=== PATIENT | female | born 1945 | race Caucasian/White ===

== ENCOUNTER 2019-12-20 12:59 | Observation (INO) | payer MEDICARE, MEDICAID ==
[2019-12-20 13:59] LABS: Hemoglobin 12.5 g/dL (12.0-16.0); Mean Corpuscular HGB CONC 31.1 g/dL (32.0-36.0); Mean Corpuscular Hemoglobin 28.2 pg (27.0-31.0); Mean Corpuscular Volume 90.8 fL (78.0-98.0); RBC Distribution Width 13.9 % (11.5-14.5); Red Blood Cell (RBC) Count 4.41 mill/uL (4.20-5.40); White Blood Cell (WBC) Count 10.5 thou/uL (4.8-10.8)
[2019-12-20 14:09] LABS: ALT (SGPT) 11 U/L (8-55); AST (SGOT) 23 U/L (5-34); Albumin 2.9 g/dL (3.4-4.8); Alkaline Phosphatase 372 U/L (40-110); Anion Gap 18 mmol/L (10-20); BUN (Urea Nitrogen) 14 mg/dL (9.8-20.1); CK (CPK) 29 U/L (29-168); Calc. Creatinine Clearance 0 mL/min (70-130); Calcium 9.5 mg/dL (7.8-10.44); Carbon Dioxide 22 mmol/L (23-31); Chloride 100 mmol/L (98-107); Estimated GFR-MDRD 60; Globulin 6.8 g/dL (2.4-3.5); Glucose 110 mg/dL (83-110); Potassium 3.4 mmol/L (3.5-5.1); Protein, Total 9.7 g/dL (6.0-8.3); Sodium 137 mmol/L (136-145)
[2019-12-20 14:22] LABS: #Basophils 0.1 thou/uL (0.0-0.2); #Eosinphils 0.4 thou/uL (0.0-0.7); #Lymphocytes 2.8 thou/uL (1.20-3.40); #Monocytes 0.9 thou/uL (0.11-0.59); #Neutrophils 6.3 thou/uL (1.40-6.50); %Basophils 0.8 % (0.0-1.0); %Eosinophils 3.8 % (0.0-10.0); %Monocytes 8.5 % (0.0-10.0); %Neutrophils 59.9 % (42.0-75.0); Platelet Count 100 thou/uL (130-400)
--- NOTE | 2019-12-20 14:26 | RAD ---
PORTABLE CHEST 1 VIEW: DATE: 12/20/2019. TIME: 1:53 p.m. HISTORY: Nausea, vomiting, body aches. FINDINGS: Comparison is made with the exam of 02/24/2008. The heart size is normal. The aorta is tortuous. The lungs are expanded without lobar consolidation , pneumothoraces, or pleural effusions. IMPRESSION: No radiographic evidence of acute cardiopulmonary process. POS: OFF
[2019-12-20 14:31] LABS: CKMB 1.1 ng/mL (0-6.6)
[2019-12-20] MEDS ORDERED: Aspirin Chewable 81 MG TAB ONE (14:59)
[2019-12-20 15:42] LABS: Bilirubin Negative (Negative); Blood, Urine Trace (Negative); Clarity Turbid (Clear); Glucose, Urine (Dipstick) Normal (Negative); Leukocyte 250 Leu/uL (Negative); Nitrite Negative (Negative); Protein, Urine (Dipstick) 70 mg/dL (Neg-Trace); RBC/HPF 0-3 HPF (0-3); Urobilinogen 3 mg/dL (Less than 2)
[2019-12-20 15:50] LABS: Bacteria/HPF Rare-Few HPF (None Seen)
[2019-12-20] MEDS ORDERED: cefTRIAXone\\ROCEPHIN 2 GM VIAL ONE (16:00)
[2019-12-20 18:11] LABS: Troponin I Less than 0.010 ng/mL (< 0.028)
[2019-12-20] MEDS ORDERED: Ondansetron PF 4 MG/2 ML Vial IVP PRN (18:56)
[2019-12-20] MEDS ORDERED: Ondansetron ODT 4 MG TAB PO PRN (18:56)
[2019-12-20] MEDS ORDERED: hydrALAZINE 20 MG/ML VIAL SLOW IVP PRN (18:56)
[2019-12-20] MEDS ORDERED: cloNIDine 0.1 MG TAB PO PRN (18:56)
[2019-12-20] MEDS ORDERED: Acetaminophen 325 MG TAB PO PRN (18:56)
[2019-12-20 19:03] VITALS: BMI 18.8
[2019-12-20 21:44] LABS: Troponin I 0.014 ng/mL (< 0.028)
--- NOTE | 2019-12-20 22:57 | HP ---
PRIMARY CARE PHYSICIAN: Adair Rodriguez. CHIEF COMPLAINT: Feeling weak and dysuria. HISTORY OF PRESENT ILLNESS: Ms. Lopes is a very pleasant 74-year-old female. She had been told that she has a history of hypertension in the past, who presents to the emergency room after complaining of weakness for the past couple of weeks. She also has been having some burning when she urinates, which is primarily at night. She also has been having episodes of muscle and joint aches. She also says she has been losing weight. She thinks she lost about 5 pounds over the last few months, trouble sleeping. She also notes some nausea off and on, as well as some diffuse abdominal pain in the flanks and also as well as constipation. She denies any hematuria. However, no fevers, no chills, but as a result of her symptoms, she came to the ER for evaluation. In the ER, she was found to have a slightly elevated troponin as well as findings consistent with urinary tract infection and for this reason, she is being admitted. REVIEW OF SYSTEMS: All systems were reviewed and are negative except for that mentioned in the history of present illness. PAST MEDICAL HISTORY: Significant for elevated cholesterol and peripheral vascular disease. PAST SURGICAL HISTORY: She has had a stent placed in her femoral artery, as well as a colonoscopy with the removal of polyps. ALLERGIES: NO KNOWN DRUG ALLERGIES. SOCIAL HISTORY: She currently resides in assisted living facility. She is a former smoker and she smoked for about 60 years and has vaped for about 4 years. FAMILY HISTORY: Significant for lymphoma in her mother and father of a brain hemorrhage. She had a brother, who of small cell carcinoma and a sister who of unknown type of cancer. CURRENT MEDICATIONS: Unknown. PHYSICAL EXAMINATION: GENERAL: She is alert and oriented. She is a very thin, frail-appearing female. VITAL SIGNS: Blood pressure was 154/83, heart rate 90, respiratory rate of 20. She is afebrile. HEENT: Pupils are equal, round, and reactive. Extraocular muscles are intact. Sclerae anicteric. Throat, no erythema, no exudates. Tympanic membranes pearly romero. There is no fluid behind the drum. NECK: She does have some submandibular and cervical adenopathy more pronounced on the right. There are no bruits. LUNGS: Clear to auscultation. There is no wheezing, no rales, no rhonchi. CARDIOVASCULAR: She has a normal S1, S2. There is no S3 or S4. No murmurs, clicks, or rubs. ABDOMEN: Soft. It is obese, nontender, and nondistended. Positive for bowel sounds. No rebound. No guarding. EXTREMITIES: There is no clubbing, no cyanosis, no edema. However, she did have significant adenopathy in the groin bilaterally, which were actually fairly large lymph nodes, which were movable but nonfluctuant. NEUROLOGICAL: Exam is grossly nonfocal. LABORATORY RESULTS: Her white blood cell count is 10.5, hemoglobin 12.5, hematocrit is 40.1, and platelet count was 100. Sodium 137, potassium 3.4, chloride is 100, CO2 is 22, BUN of 14, creatinine 0.92, glucose is 110. Her urinalysis, UA, the clarity was turbid. She has positive leukocyte esterase and rare to few bacteria. She had a chest x-ray that showed hyperexpanded lungs in my opinion, but no acute infiltrates or effusions. EKG was a right bundle-branch block with some nonspecific ST-T wave changes. This is also by my reading. ASSESSMENT: This is a pleasant 74-year-old female, who presents with generalized weakness and dysuria. She has been found to have mild urinary tract infection. She has also been found to have worrisome adenopathy both in the submandibular and on the cervical chain, as well as in the groin and also an elevated troponin. However, she tells me she recently had a negative stress test at [facility]. PLAN: 1. Urinary tract infection. She will be admitted to the hospital. Urine culture will be obtained and she will be placed on IV Rocephin. 2. Elevated troponin. We will request the records from [facility] to get the stress test and continue to trend her cardiac enzymes. 3. Lymphadenopathy. We will consult Surgery to see if these are amenable to biopsy and also get the records from [facility] as the patient says she recently had a CT scan, but she does not know what the results are. It could have shown some intraabdominal or intrathoracic adenopathy, and further recommendations to follow. Job ID: [id number]
--- NOTE | 2019-12-20 23:35 | CON ---
DATE OF CONSULTATION: HISTORY OF PRESENT ILLNESS: The patient is a 74-year-old woman, who presents for evaluation of an abnormal EKG. The patient has previous history of peripheral vascular disease. She previously had stents placed in both lower extremities. The patient has no known cardiac history. She reports having fever, chills and weakness. She presented to the emergency room with dysuria. She was noted to have a normal EKG and admitted for further evaluation. The patient denies having any chest discomfort. PAST MEDICAL HISTORY: 1. Peripheral vascular disease. 2. Dyslipidemia. PAST SURGICAL HISTORY: SOCIAL HISTORY: Former smoker. MEDICATIONS: See nursing list. REVIEW OF SYSTEMS: Noticeable for joint pain and increasing weakness. ALLERGIES: NO KNOWN DRUG ALLERGIES. PHYSICAL EXAMINATION: GENERAL: This is a well-developed woman, in no acute distress with a blood pressure 142/70. NECK: No jugular distention. LUNGS: Clear to auscultation. HEART: Regular rate and rhythm. Normal S1, S2. No murmurs. ABDOMEN: Nondistended. EXTREMITIES: Showed no edema. VASCULAR: Radial pulses are 2+. IMAGING: Her EKG revealed normal sinus rhythm with a right bundle-branch block and a nonspecific T-wave abnormality. IMPRESSION: 1. Abnormal ECG. 2. Urinary tract infection. 3. Hypertension. This patient has a nonspecific EKG findings. She is asymptomatic from a cardiac standpoint. We will check her echocardiogram. We will follow this patient with you through her hospitalization. Job ID: [id number] MTDD
[2019-12-21 04:14] LABS: #Eosinphils 0.3 thou/uL (0.0-0.7); #Lymphocytes 2.4 thou/uL (1.20-3.40); #Monocytes 0.7 thou/uL (0.11-0.59); #Neutrophils 4.8 thou/uL (1.40-6.50); %Basophils 0.1 % (0.0-1.0); %Eosinophils 3.7 % (0.0-10.0); %Lymphocytes 29.3 % (21.0-51.0); Hemoglobin 10.5 g/dL (12.0-16.0); Mean Corpuscular HGB CONC 32.2 g/dL (32.0-36.0); Mean Corpuscular Hemoglobin 28.5 pg (27.0-31.0); Mean Corpuscular Volume 88.8 fL (78.0-98.0); Mean Platelet Volume 8.9 fL (7.4-10.4); Platelet Count 105 thou/uL (130-400); RBC Distribution Width 13.8 % (11.5-14.5); Red Blood Cell (RBC) Count 3.68 mill/uL (4.20-5.40); White Blood Cell (WBC) Count 8.3 thou/uL (4.8-10.8)
[2019-12-21 04:28] LABS: Anion Gap 13 mmol/L (10-20); BUN (Urea Nitrogen) 11 mg/dL (9.8-20.1); Calc. Creatinine Clearance 47 mL/min (70-130); Calcium 8.4 mg/dL (7.8-10.44); Carbon Dioxide 25 mmol/L (23-31); Chloride 102 mmol/L (98-107); Estimated GFR-MDRD 73; Glucose 96 mg/dL (83-110); Potassium 3.3 mmol/L (3.5-5.1); Sodium 137 mmol/L (136-145)
--- NOTE | 2019-12-21 07:21 | PDOC.HOSPP ---
- Subjective Encounter Date: 12/21/19 Encounter Time: 08:34 Subjective: Mrs. Lopes was seen today as a follow-up for weakness and dysuria. She reports that her weakness has improved, noting that she is feeling stronger and has been able to mobilize without a cane. She states that nausea, dizziness, and burning while urination have resolved. Denies fever, chills, chest pain, and SOB. - Objective Vital Signs & Weight: Vital Signs (12 hours) Temp Pulse Resp BP Pulse Ox 12/21/19 04:24 98.9 F 88 14 88/58 L 94 L 12/21/19 00:08 98.4 F 93 16 93/61 94 L Weight Weight 103 lb I&O: 12/20/19 12/21/19 12/22/19 06:59 06:59 06:59 Output Total 100 Balance -100 Result Diagrams: 12/21/19 04:01 12/21/19 04:01 Hospitalist ROS - Review of Systems All other systems reviewed; all pertinent +/- noted in HPI/Subj - Exam General Appearance: awake alert Eye: PERRL, anicteric sclera ENT: normocephalic atraumatic Neck - other findings: cervical lymphadenopathy Heart: RRR, no murmur Respiratory: no tachypnea, rales Gastrointestinal: soft, non-tender, non-distended, normal bowel sounds, no bruit Extremities: no cyanosis, no edema Musculoskeletal: normal tone, normal strength Psychiatric: normal affect, normal behavior, A&O x 3 Hosp A/P (1) Weakness Code(s): R53.1 - WEAKNESS Status: Acute (2) Dysuria Code(s): R30.0 - DYSURIA Status: Acute (3) Lymphadenopathy Code(s): R59.1 - GENERALIZED ENLARGED LYMPH NODES Status: Acute - Plan * Weakness- continue fluids to hydrate the patient. Continue a normal diet as she has increased appetite * Dysuria- continue Rocephin * Lymphadenopathy- await surgery consult for biopsy * Patient seen and examined and agree with Kenya Randolph MS-2 . Patient admits to feeling better. She has been able to walk better, and her appetite has improved. Her exam is unremarkable, and Echo results noted. She had returned from lymph node biopsy. She is stable for discharge home with oral antibiotic for UTI and follow-up with the biopsy with her Primary Care Provider.
[2019-12-21] MEDS ORDERED: Potassium Chloride 20 MEQ TAB PO SCH (08:00)
[2019-12-21] MEDS ORDERED: Aspirin 81 mg Enteric Coated Tablet PO SCH (09:00)
[2019-12-21] MEDS: Sodium Chloride 0.9% 1,000 ML IV SCH ×2 (09:17→16:52)
[2019-12-21] MEDS ORDERED: Lidocaine 1% w/Epinephrine 1:100K 20 ML VIAL ONE (11:46)
[2019-12-21] MEDS ORDERED: Bupivacaine PF 0.5% 30 ML VIAL ONE (11:46)
[2019-12-21] MEDS ORDERED: Fentanyl 100 MCG/2 ML VIAL ONE (11:59)
[2019-12-21] MEDS ORDERED: EPHEDRINE 25 MG/5 ML SYRINGE ONE (13:44)
[2019-12-21] MEDS ORDERED: PHENYLEPHRINE-NS 100 MCG/ML 10 ML SYRINGE ONE (13:44)
[2019-12-21] MEDS ORDERED: Lidocaine 1% PF 5 ML VIAL ONE (13:44)
[2019-12-21] MEDS ORDERED: PROPOFOL 200 MG/20 ML VIAL ONE (13:44)
[2019-12-21 15:06] VITALS: BP 88/59; TEMP 97.8
--- NOTE | 2019-12-21 15:30 | OP ---
DATE OF PROCEDURE: 12/21/2019 PREOPERATIVE DIAGNOSIS: Left inguinal lymphadenopathy. POSTOPERATIVE DIAGNOSIS: Left inguinal lymphadenopathy. PROCEDURE PERFORMED: Excisional biopsy, left inguinal node. ANESTHESIA: General endotracheal. ESTIMATED BLOOD LOSS: Less than 5 mL. COMPLICATIONS: None apparent at the time of operation. INDICATIONS FOR OPERATION: A 74-year-old woman presented with worsening fatigue and malaise. Clinical radiographic examination was consistent with acute left inguinal lymphadenopathy. I was asked to obtain lymph node for biopsy. DESCRIPTION OF PROCEDURE: Informed consent was obtained from the patient, brought to the operating room in supine position. Following general anesthesia, the left groin was sterilely prepped and draped in usual fashion. A 0.25% Marcaine with epinephrine was used to infiltrate the skin overlying the palpable enlarged left inguinal lymph node. An oblique incision was made over the dome of the palpable mass using 15 scalpel. Incision was carried through subcutaneous tissues, maintaining hemostasis using cautery. The fascia was opened. An enlarged lymph node was encountered and grasped with Allis clamps. vessels were individually dissected off and ligated with 3-0 Vicryl. The lymph node was passed off the operative field following transmission to Pathology. Bleeding points were controlled using cautery. Deep tissues were reapproximated using interrupted sutures of 3-0 Vicryl. The skin was closed using a running stitch of 4-0 Monocryl suture in subcuticular fashion. Dermabond was applied over incisional closure. The patient tolerated the procedure without any apparent complications, returned to recovery room in satisfactory condition. Job ID: [id number]
[2019-12-21] MEDS ORDERED: cefTRIAXone\\ROCEPHIN 1 GM in Sodium Chloride 0.9% 100 ML IVPB SCH (16:00)
--- NOTE | 2019-12-22 03:20 | DIS ---
DATE OF ADMISSION: 12/20/2019 DATE OF DISCHARGE: 12/21/2019 DISCHARGE DISPOSITION: Home. DISCHARGE DIAGNOSES: 1. Urinary tract infection. 2. Dehydration. 3. Lymphadenopathy. 4. History of peripheral vascular disease. 5. Tobacco abuse. 6. Elevated cholesterol. DISCHARGE MEDICATIONS: Include: 1. Omnicef 300 mg p.o. twice daily. 2. Aspirin 81 mg daily. PROCEDURES DONE DURING ADMISSION: The patient had an echocardiogram demonstrating an ejection fraction of 60% to 65%. There was some impaired relaxation consistent with diastolic dysfunction. CODE STATUS: Full code. ALLERGIES: NO KNOWN DRUG ALLERGIES. HOSPITAL COURSE: Ms. Lopes is a pleasant 74-year-old female, who was admitted to the hospital after having generalized weakness, dysuria, and poor appetite. She was found to have a mild urinary tract infection. She was also found to be volume depleted. She was admitted and started on IV fluids as well as antibiotics. Urine culture was pending at the time of discharge. She was also noted to have significant inguinal lymphadenopathy. As a result, a surgery consult was obtained and she underwent biopsy. The results of which were pending at the time of discharge, and she was told to follow up with her primary care physician, for the results and also with Dr. White with cardiology. Job ID: [id number]
--- NOTE | 2019-12-28 16:45 | EKG ---
Test Reason : Blood Pressure : / mmHG Vent. Rate : 099 BPM Atrial Rate : 099 BPM P-R Int : 120 ms QRS Dur : 116 ms QT Int : 376 ms P-R-T Axes : 069 078 -44 degrees QTc Int : 482 ms Normal sinus rhythm Possible Left atrial enlargement Right bundle branch block Abnormal ECG T wave inversion II, III, aVF St elevation aVR Confirmed by ZAID ADAMES DO ([id number]), editor greeting card PEPE LAWSON ([id number]) on 12/28/2019 4:44:36 PM Referred By: Confirmed By:ZAID ADAMES DO
--- NOTE | 2019-12-28 16:46 | EKG ---
Test Reason : Blood Pressure : / mmHG Vent. Rate : 088 BPM Atrial Rate : 088 BPM P-R Int : 112 ms QRS Dur : 122 ms QT Int : 418 ms P-R-T Axes : 076 075 -16 degrees QTc Int : 505 ms Sinus rhythm with Premature atrial complexes with Abberant conduction Possible Left atrial enlargement Right bundle branch block T wave abnormality, consider inferior ischemia Abnormal ECG No change from initial EKG Confirmed by ZAID ADAMES DO ([id number]), photography editor PEPE LAWSON ([id number]) on 12/28/2019 4:46:05 PM Referred By: Confirmed By:ZAID ADAMES DO
== END 2019-12-21 18:18 | disposition home or self-care (01) ==
LOC: ERS 12:59 → ERHOLD 17:19 → 2SW 18:58
PROVIDERS: ADMIT Internal Medicine; ATTEND Internal Medicine
PROC: 07DJ3ZX Extraction of Left Inguinal Lymphatic, Percutaneous Approach, Diagnostic (ICD-10-PCS; principal; 2019-12-20)
DX: C84.45 Peripheral T-cell lymphoma, not elsewhere classified, lymph nodes of inguinal region and lower limb (principal); N39.0 Urinary tract infection, site not specified; E86.0 Dehydration; E78.00 Pure hypercholesterolemia, unspecified; I10 Essential (primary) hypertension; Z79.82 Long term (current) use of aspirin; Z87.891 Personal history of nicotine dependence
CPT/HCPCS: 38500; 71045; 80048; 80053; 82550; 82553; 84134; 84439; 84443; 84484 ×2; 85025 ×2; 87086; 88184; 88185; 88307; 88341; 88342; 88360; 88365; 93005; 93306; 96365; 99285; G0378 ×2; 36415; 81003; 81015; 88237; 88264; 88280; J0696; J2001; J2704; J3010; J3490; S0020

== ENCOUNTER 2020-01-01 16:18 | Inpatient (IN) | payer MEDICARE, MEDICAID ==
[2020-01-01 17:18] LABS: Hemoglobin 7.3 g/dL (12.0-16.0); Mean Corpuscular HGB CONC 33.5 g/dL (32.0-36.0); Mean Corpuscular Hemoglobin 29.3 pg (27.0-31.0); Mean Corpuscular Volume 87.4 fL (78.0-98.0); Mean Platelet Volume 9.2 fL (7.4-10.4); Platelet Count 60 thou/uL (130-400); Red Blood Cell (RBC) Count 2.48 mill/uL (4.20-5.40)
--- NOTE | 2020-01-01 17:31 | RAD ---
RADIOGRAPH CHEST 1 VIEW: DATE: 01/01/2020 HISTORY: 74-year-old female with dyspnea FINDINGS: There is hyperinflation of the lungs, consistent with COPD. There is no evidence of airspace density, pulmonary edema, or pneumothorax. The lateral costophrenic angles are not effaced. IMPRESSION: 1) No acute pulmonary findings. 2) emphysema.
[2020-01-01 17:37] LABS: Anisocytosis SLIGHT = 6-15 cells (100X) (0-5/hpf); Band 26 % (5-11); Eosinophils 3 % (0-10); Lymphocytes 11 % (21-51); MDiff Complete? YES; Metamyelocyte 6 % (0-0); Monocytes 3 % (0-10); Myelocyte 1 % (0-0); Neutrophil 49 % (42-75); Nucleated RBC 3 % (0); Platelet Morphology Comment Appears Decreased; Polychromasia SLIGHT = 2-3 cells (100X) (0-2/hpf); Reactive Lymphocytes 1 % (0-10); Vacuoles SLIGHT; White Blood Cell (WBC) Count 11.1 thou/uL (4.8-10.8)
[2020-01-01 17:40] LABS: Anion Gap 14 mmol/L (10-20); BUN (Urea Nitrogen) 19 mg/dL (9.8-20.1); Calc. Creatinine Clearance 0 mL/min (70-130); Carbon Dioxide 25 mmol/L (23-31); Chloride 98 mmol/L (98-107); Estimated GFR-MDRD 63; Potassium 3.7 mmol/L (3.5-5.1); Sodium 133 mmol/L (136-145)
[2020-01-01 17:41] LABS: ALT (SGPT) Less than 7 U/L (8-55); AST (SGOT) 22 U/L (5-34); Albumin 1.9 g/dL (3.4-4.8); Alkaline Phosphatase 266 U/L (40-110); Bilirubin, Total 1.4 mg/dL (0.2-1.2); Calcium 9.3 mg/dL (7.8-10.44); Globulin 6.6 g/dL (2.4-3.5); Glucose 96 mg/dL (83-110); Lipase 40 U/L (8-78); Protein, Total 8.5 g/dL (6.0-8.3)
[2020-01-01 17:53] LABS: Bilirubin Negative (Negative); Blood, Urine Negative (Negative); Clarity Clear (Clear); Glucose, Urine (Dipstick) Normal (Negative); Leukocyte Negative Leu/uL (Negative); Nitrite Negative (Negative); Protein, Urine (Dipstick) 20 mg/dL (Neg-Trace); Urobilinogen 3 mg/dL (Less than 2)
[2020-01-01] MEDS ORDERED: Vancomycin HCl 750 MG in Sodium Chloride 0.9% 250 ML 250 ML IVPB ONE (18:00)
[2020-01-01] MEDS ORDERED: Pantoprazole 40 MG VIAL ONE (19:04)
--- NOTE | 2020-01-01 19:24 | ULT ---
RIGHT UPPER QUADRANT ABDOMINAL ULTRASOUND: History: Right upper quadrant abdominal pain. Comparison: None. Technique: Multiplanar grayscale and color doppler images were obtained in a right upper quadrant abd ominal ultrasound. FINDINGS: The liver is normal in echogenicity without focal lesions or intrahepatic ductal dilatation. The gall bladder is normal without stones, sludge, gallbladder wall thickening, or pericholecystic fluid. The common bile duct is upper limits of normal measuring 6 mm. The visualized portion of the pancreas is unremarkable. The right kidney is normal in echogenicity wi thout hydronephrosis and measures 10.4 cm in length. IMPRESSION: Unremarkable exam. POS: C
[2020-01-01] MEDS ORDERED: Piperacillin/Tazobactam 4.5 GM VIAL ONE (20:40)
[2020-01-01] MEDS ORDERED: Acetaminophen 325 MG TAB ONE (23:00)
[2020-01-01 23:58] VITALS: BMI 20.1
[2020-01-02] MEDS: Sodium Chloride 0.9% 1,000 ML IV SCH ×2 (00:40→08:01)
[2020-01-02] MEDS ORDERED: Calcium Carbonate 500 MG ChewTAB PO PRN (01:35)
[2020-01-02] MEDS ORDERED: Senokot S 8.6-50 MG TAB PO PRN (01:35)
--- NOTE | 2020-01-02 01:47 | HP ---
PRIMARY CARE: [facility]. CHIEF COMPLAINT: Generalized weakness with poor appetite of 1-week duration. HISTORY OF PRESENT ILLNESS: The patient is a 74-year-old female with recent diagnosis of T-cell lymphoma, presented to the emergency room with above complaints. The patient was discharged from this facility approximately 2 weeks ago. She was admitted with generalized weakness and was found to have urinary tract infection. She was noted to have significant inguinal lymphadenopathy, requiring excisional lymph node biopsy. The biopsy came positive for T-cell lymphoma. She was scheduled to see oncologist at [facility] on December,. Over the last 1 week, the patient has not been eating and drinking well. She has been feeling generally weak and fatigued. She has been having low-grade fever as well. She has generalized aches and pains. She denies any nausea, vomiting, abdominal pain, melena, hematochezia, cough, shortness of breath, wheezing, or skin rash. In the emergency room, her initial vital signs showed temperature 99.1, respirations of 17, pulse rate of 107 with a blood pressure 142/68 with O2 saturations of 94% on room air. Sepsis alert was activated in the emergency room. She received vancomycin and Zosyn with IV fluids in the emergency room after cultures. No obvious source of infection was identified. PAST MEDICAL HISTORY: 1. Recent diagnosis of T-cell lymphoma as discussed above. 2. Hyperlipidemia. 3. Peripheral vascular disease. 4. Recent UTI. 5. History of tobacco abuse. PAST SURGICAL HISTORY: 1. Recent exertional lymph node biopsy. 2. Femoral stent placement. 3. Colonoscopy with removal of polyps. ALLERGIES: NO KNOWN DRUG ALLERGIES. CURRENT HOME MEDICATIONS: To be verified with the family when they arrive. The patient is unable to recall all of her medications. REVIEW OF SYSTEMS: All other review of systems was reviewed and were found negative. SOCIAL HISTORY: She has [id number] smoking history. She denies current use of smoking, alcohol, or drug use. She makes her own decision with the help of her family. She is full code. FAMILY HISTORY: Mother with lymphoma. Father of brain hemorrhage. One brother with small cell carcinoma. PHYSICAL EXAMINATION: VITAL SIGNS: As discussed above. GENERAL: A 74-year-old female, ill appearing. Feels generally weak and fatigued. HEENT: Head, atraumatic and normocephalic. Sclerae anicteric. Dry mucous membranes. No oral lesion. NECK: Supple. No JVD. No carotid bruit. LUNGS: Clear to auscultation bilaterally. No wheezing, rales, or rhonchi. HEART: S1 and S2 present. Regular. No rubs or gallops. ABDOMEN: Soft, nontender. Bowel sounds present. EXTREMITIES: No edema or calf tenderness. NEUROLOGIC: Grossly nonfocal. Moves all 4 extremities. PSYCHIATRIC: Alert, awake, and oriented x3. SKIN: Warm and dry. LYMPH NODES: No palpable lymph nodes in the neck. PERIPHERAL VASCULAR: Radial pulses palpable bilaterally. MUSCULOSKELETAL: No joint swelling tenderness. LABORATORY FINDINGS: CBC showed WBC 11.1 with hemoglobin 7.3, hematocrit 21.7, platelets 60. Chemistry showed sodium 133, potassium 3.7, chloride 98, bicarb 25, BUN 19, creatinine 0.87. Total bilirubin 1.4 with alkaline phosphatase of 266. It was 372 two weeks ago. Albumin 1.9 with total protein of 8.5. BNP was 143. Urinalysis was negative for wbc, bacteria. Influenza screen was negative. Stool for occult blood was negative. Right upper quadrant ultrasound was negative for acute findings. The common bile duct was 6 mm. Chest x-ray by my review was negative for infiltrate or edema. IMPRESSION: 1. Generalized weakness, multifactorial. 2. Symptomatic anemia, status post 1 unit of PRBC in the emergency room. 3. Pancytopenia, suspected secondary to T-cell lymphoma. 4. Hyponatremia secondary to dehydration. 5. Abnormal LFTs of unclear etiology. Right upper quadrant was negative. 6. Moderate protein-calorie malnutrition. 7. Questionable sepsis. The patient received 1 dose of vancomycin and Zosyn in the emergency room. Cultures have been sent. PLAN: The patient will be monitored in the Oncology Unit. Oncology Team will be consulted. We will check reticulocyte in a.m. She has 26% bandemia on the CBC. We will continue antibiotics for now, pending cultures. Gentle IV hydration. Consult Physical therapy and Occupational Therapy, and dietitian. Confirm home medications and start accordingly. The patient understands the above plan of care. Job ID: [id number]
[2020-01-02] MEDS: D5 1/2 NS w/20 mEq KCL 1,000 ML IV SCH ×2 (02:25→19:12)
[2020-01-02] MEDS ORDERED: Piperacillin/Tazobactam 4.5 GM in Sodium Chloride 0.9% 100 ML IVPB SCH (03:00)
[2020-01-02 04:27] LABS: Reticulocyte Count 2.3 % (0.5-1.5)
[2020-01-02 04:36] LABS: Band 15 % (5-11); Hypochromia SLIGHT = 6-15 cells (100X) (0-5/hpf); Lymphocytes 16 % (21-51); MDiff Complete? YES; Mean Corpuscular HGB CONC 34.4 g/dL (32.0-36.0); Mean Corpuscular Hemoglobin 30.3 pg (27.0-31.0); Mean Corpuscular Volume 88.2 fL (78.0-98.0); Mean Platelet Volume 9.1 fL (7.4-10.4); Metamyelocyte 4 % (0-0); Monocytes 11 % (0-10); Neutrophil 54 % (42-75); Platelet Count 47 thou/uL (130-400); Platelet Morphology Comment Appears Decreased; RBC Distribution Width 15.2 % (11.5-14.5); Red Blood Cell (RBC) Count 2.63 mill/uL (4.20-5.40); White Blood Cell (WBC) Count 7.6 thou/uL (4.8-10.8)
[2020-01-02 04:44] LABS: Phosphorus 3.9 mg/dL (2.3-4.7)
[2020-01-02 04:53] LABS: Anion Gap 13 mmol/L (10-20); BUN (Urea Nitrogen) 16 mg/dL (9.8-20.1); Calc. Creatinine Clearance 46 mL/min (70-130); Carbon Dioxide 21 mmol/L (23-31); Chloride 105 mmol/L (98-107); Estimated GFR-MDRD 69; Glucose 83 mg/dL (83-110); Magnesium 1.5 mg/dL (1.6-2.6); Potassium 3.2 mmol/L (3.5-5.1); Sodium 136 mmol/L (136-145)
[2020-01-02] MEDS ORDERED: Vancomycin HCl 1 GM in Premix Bag 1 BAG IVPB SCH ×2 (06:00→21:00)
[2020-01-02] MEDS ORDERED: Magnesium 2 GM/50 ML 2 GM in Premix Bag 1 BAG IVPB SCH (06:30)
[2020-01-02] MEDS: Acetaminophen 325 MG TAB PO PRN (08:00)
[2020-01-02] MEDS ORDERED: Iopamidol 370 76% 100 ML VIAL ONE (13:48)
[2020-01-02 13:58] LABS: INR-International Normal Ratio 1.5
[2020-01-02 13:59] LABS: PTT 45.5 SEC (22.9-36.1)
--- NOTE | 2020-01-02 14:00 | PDOC.HOSPP ---
- Subjective Encounter Date: 01/02/20 Encounter Time: 13:58 Subjective: Ms. Lopes was seen today in follow-up of generalized weakness. She does not have any complaints. She has still been very weak. - Objective Vital Signs & Weight: Vital Signs (12 hours) Temp Pulse Resp BP Pulse Ox 01/02/20 12:00 98.4 F 96 18 115/59 L 96 01/02/20 09:00 95 01/02/20 08:05 95 01/02/20 08:00 98.6 F 88 16 139/70 95 01/02/20 04:00 98.3 F 88 16 142/67 H 95 Weight Admit Weight 106 lb 8 oz Weight 106 lb 8 oz I&O: 01/01/20 01/02/20 01/03/20 06:59 06:59 06:59 Intake Total 875 Output Total 200 Balance 675 Result Diagrams: 01/02/20 04:17 01/02/20 04:17 Hospitalist ROS - Medication Medications: Active Medications Generic Name Dose Route Start Last Admin Trade Name Freq PRN Reason Stop Dose Admin Acetaminophen 650 mg 01/01/20 22:51 01/02/20 08:00 Tylenol PO 650 mg Q4H PRN Administration Headache/Fever or Mild Pain Potassium Chloride/Dextrose/Sod Cl 1,000 mls @ 75 mls/hr 01/02/20 01:45 01/02 02:25 D5 1/2 Ns W/20 Meq Kcl IV 1,000 mls .[id number] LU Administration Sodium Chloride 10 ml 01/02/20 09:00 01/02/20 08:01 Flush - Normal Saline IVF Not Given Q12HR LU - Exam General Appearance: NAD Eye: anicteric sclera Heart: RRR, no murmur, no gallops, no rubs, normal peripheral pulses Respiratory: CTAB, no wheezes, no rales, no ronchi, normal chest expansion, no tachypnea, normal percussion Gastrointestinal: soft, non-tender, non-distended, normal bowel sounds, no palpable masses, no hepatomegaly Extremities: no cyanosis, no clubbing, no edema Hosp A/P (1) Lymphoma, T-cell Code(s): C85.90 - NON-HODGKIN LYMPHOMA, UNSPECIFIED, UNSPECIFIED SITE Status: Acute (2) Thrombocytopenia Code(s): D69.6 - THROMBOCYTOPENIA, UNSPECIFIED Status: Acute (3) Anemia Code(s): D64.9 - ANEMIA, UNSPECIFIED Status: Acute - Plan * Generalized weakness and malaise- likely due to the anemia, and newly diagnosed Lymphoma * Discussed with Oncology- will begin staging, and likely treatment soon * Follow-up of blood culture results, and continue antibiotics pending culture results. * Continue PT/OT * Transfuse for anemia as needed
--- NOTE | 2020-01-02 14:42 | CT ---
EXAM: CT of the neck with contrast CT of the chest with contrast CT of the abdomen and pelvis with contrast HISTORY: T-cell lymphoma COMPARISON: 11/16/2013 TECHNIQUE: 1. Multiple contiguous axial images were obtained in a CT the chest with contrast. Coronal and sagitt al reformats were performed. 2. Multiple contiguous axial images were obtained and a CT of the abdomen and pelvis with contrast. C oronal and sagittal reformats were performed. 3. Multiple contiguous axial images were obtained and a CT of the neck with contrast. Coronal and sag ittal reformats were performed. FINDINGS: CT NECK: No mucosal abnormality is seen in the nasopharynx, oropharynx, hypopharynx, or subglottic regions. The parapharyngeal spaces are symmetric. Multiple enlarged bilateral cervical lymph nodes are seen in zones 2 through 4 measuring up to 3.5 cm in size. There are enlarged lymph nodes in zone 1 and zone 5 bilaterally. Mildly enlarged infraclavicular lymph nodes are seen. The salivary glands are symmetric without focal abnormality. The thyroid is unremarkable. No osseous abnormality is seen in the cervical spine. The visualized intracranial structures are unremarkable. CT CHEST: HEART: Normal in size with calcifications in the mitral valve and aortic valve. Calcified coronary ar teries. MEDIASTINUM: No enlarged hilar and mediastinal lymph nodes measuring up to 2.5 cm in size. LUNGS: Emphysematous changes. No focal infiltrates, nodules, or masses. PLEURAL SPACE: No pneumothorax or pleural effusion. CHEST WALL SOFT TISSUES: Enlarged bilateral axillary lymph nodes measuring up to 2.[address] ABDOMEN/PELVIS: ABDOMEN: LIVER: within normal limits. BILE DUCTS: Normal caliber. GALLBLADDER: Contracted with enhancing wall and edema of the gallbladder wall. PANCREAS: within normal limits. SPLEEN: within normal limits. ADRENALS: within normal limits. KIDNEYS: within normal limits. PELVIS: REPRODUCTIVE ORGANS: No pelvic masses. URETERS: within normal limits. BLADDER: within normal limits. PERITONEUM: A small amount of free fluid is seen in the pelvis. No free air or stranding changes seen . BOWEL: Normal caliber. Normal appendix. MESENTERY AND RETROPERITONEUM: Mildly enlarged retroperitoneal lymph nodes measuring up to 2.3 cm in size. Mildly prominent lymph nodes along both pelvic sidewalls. VESSELS: Ectasia of the infrarenal aorta. Stents are seen in the bilateral common iliac arteries. ABDOMINAL WALL: Bilateral enlarged inguinal lymph nodes measuring up to 3.1 cm in size. OSSEOUS STRUCTURES: Degenerative changes in the spine. IMPRESSION: Enlarged lymph nodes throughout the neck, chest, abdomen, pelvis, bilateral axilla, and bilateral ing uinal regions are consistent with the diagnosis of lymphoma.
[2020-01-02] MEDS: Piperacillin/Tazobactam 3.375 GM in Sodium Chloride 0.9% 100 ML IVPB SCH ×2 (15:30→21:43)
--- NOTE | 2020-01-02 15:56 | CON ---
DATE OF CONSULTATION: REASON FOR CONSULTATION: Peripheral T-cell lymphoma. HISTORY OF PRESENT ILLNESS: Ms. Lopes is a pleasant 74-year-old female who over the past month has been having gradual weakness, loss of appetite, weight loss, itching, and pruritus. She presented to the emergency room 2 weeks ago and was diagnosed with a urinary tract infection. She was noted to have lymphedema of her neck and groin. She underwent an excisional biopsy of her left inguinal node. It was positive for peripheral T-cell lymphoma. The patient was discharged to follow up with [facility] in [place] for recommendations. However, she continued to decline over the past week and was brought to the emergency room yesterday for generalized weakness. Her hemoglobin had dropped in the past week from 10.5 to 7.3. She was transfused 1 unit of blood and admitted for further workup and treatment. The patient states over the past month she has had declining appetite, but denies early satiety. She denies night sweats, but has had significant pruritus. Currently denies any pain. PAST MEDICAL HISTORY: 1. Newly diagnosed peripheral T-cell lymphoma. 2. Hyperlipidemia. 3. Peripheral vascular disease. 4. Recent UTI, treated. PAST SURGICAL HISTORY: 1. Left inguinal node excision and biopsy. 2. Femoral stent placement. 3. Polypectomy. ALLERGIES: NO KNOWN DRUG ALLERGIES. HOME MEDICATIONS: 1. Aspirin. 2. Omnicef. FAMILY HISTORY: Her mother had lymphoma. Father from a brain hemorrhage. She had a brother with small-cell lung cancer. SOCIAL HISTORY: . Lives with her daughter. A [id number] of smoking. REVIEW OF SYSTEMS: Ten-point review of systems is negative except for noted in HPI. PHYSICAL EXAMINATION: VITAL SIGNS: Temperature is 98.4, pulse is 96, respiratory rate 18, BP is 115/59, and she is 96% on room air. GENERAL: This is a frail female, in no acute distress. HEENT: Normocephalic and atraumatic. Pupils are equal and reactive to light. NECK: Supple. CV: Regular rate and rhythm. LUNGS: Clear. ABDOMEN: Soft and nontender. There is no palpable organomegaly. EXTREMITIES: No clubbing or cyanosis. SKIN: No rash. LYMPHATICS: She has palpable cervical, supraclavicular, bilateral axillary, and bilateral inguinal lymphadenopathy. NEUROLOGIC: Nonfocal. PSYCHIATRIC: She is alert and oriented and appropriate. PERTINENT LABORATORY DATA AND X-RAYS: Current WBCs are 7.6, hemoglobin 8, hematocrit 23.2, and platelet count is 47,000. She has 54% neutrophils, 15% bands, 16% lymphocytes, 11% monocytes, and reticulocyte is 2.3. Sodium is 136, potassium 3.2, chloride 105, CO2 is 21, BUN is 16, creatinine 0.81, and calcium 8. Phosphorus 3.9. Magnesium 1.5. Bilirubin 1.4, AST is 22, ALT is less than 7, and alkaline phosphatase is 266. Troponin is negative and BNP is 143. Serum total protein is 8.5, albumin 1.9, globulin 6.6, and lipase is 40. TSH is normal. Flow cytometry from 2 weeks ago showed abnormal T-cells. ASSESSMENT: Peripheral T-cell lymphoma. DISCUSSION: The patient's biopsy from her lymph node shows peripheral T-cell lymphoma, CD3 positive. Immunohistochemical stains show that the T-cells have lost CD7 and showed an abnormal expression of CD56, her KI67 is high at 80% to 90%. She is positive for T-cell receptor gamma gene rearrangement. She has not had any further workup, but she was due to see the oncologist in [place] today, but presented here due to significant weakness. The plan will be to image her neck, chest, abdomen, and pelvis. She will need a bone marrow biopsy. She has had an echo on last visitation, which was normal at 60% to 65%. She will need a MediPort for chemotherapy. The case has been discussed in detail with Dr. Alvarez who will follow up with the patient with further recommendations. Thank you for the consult. Job ID: [id number]
[2020-01-02] MEDS: Vancomycin HCl 750 MG in Sodium Chloride 0.9% 250 ML 250 ML IVPB SCH (19:07)
[2020-01-02] MEDS ORDERED: Melatonin 3 MG TAB PO PRN (20:04)
[2020-01-03] MEDS: D5 1/2 NS w/20 mEq KCL 1,000 ML IV SCH ×2 (02:22→17:14)
[2020-01-03] MEDS: Piperacillin/Tazobactam 3.375 GM in Sodium Chloride 0.9% 100 ML IVPB SCH ×4 (03:26→21:20)
[2020-01-03 04:09] LABS: Band 19 % (5-11); Differential Comment Immature Cell(s); Eosinophils 5 % (0-10); Lymphocytes 13 % (21-51); MDiff Complete? YES; Mean Corpuscular HGB CONC 34.1 g/dL (32.0-36.0); Mean Corpuscular Hemoglobin 29.6 pg (27.0-31.0); Mean Corpuscular Volume 86.9 fL (78.0-98.0); Mean Platelet Volume 9.7 fL (7.4-10.4); Metamyelocyte 3 % (0-0); Monocytes 2 % (0-10); Myelocyte 3 % (0-0); Neutrophil 52 % (42-75); Nucleated RBC 1 % (0); Platelet Count 38 thou/uL (130-400); Platelet Morphology Comment Appears Decreased; RBC Distribution Width 15.3 % (11.5-14.5); Red Blood Cell (RBC) Count 2.69 mill/uL (4.20-5.40); Reflex for Review?? NO; White Blood Cell (WBC) Count 8.6 thou/uL (4.8-10.8)
[2020-01-03 04:18] LABS: ALT (SGPT) Less than 7 U/L (8-55); AST (SGOT) 20 U/L (5-34); Albumin 1.7 g/dL (3.4-4.8); Alkaline Phosphatase 230 U/L (40-110); Anion Gap 12 mmol/L (10-20); BUN (Urea Nitrogen) 9 mg/dL (9.8-20.1); Bilirubin, Total 1.2 mg/dL (0.2-1.2); Calc. Creatinine Clearance 43 mL/min (70-130); Calcium 7.5 mg/dL (7.8-10.44); Carbon Dioxide 23 mmol/L (23-31); Chloride 102 mmol/L (98-107); Estimated GFR-MDRD 63; Globulin 6.3 g/dL (2.4-3.5); Glucose 126 mg/dL (83-110); Potassium 3.1 mmol/L (3.5-5.1); Sodium 134 mmol/L (136-145)
--- NOTE | 2020-01-03 09:54 | PDOC.MOPN ---
Interval History: complains of weakness. - Vital Signs Vital Signs: Vital Signs (12 hours) Temp Pulse Resp BP Pulse Ox 01/03/20 08:00 98.7 F 86 18 93/63 95 01/03/20 03:32 98.8 F 89 16 146/71 H 95 01/02/20 23:53 98.9 F 87 16 121/59 L 95 Weight Admit Weight 106 lb 8 oz Weight 106 lb 8 oz - Physical Exam General: Alert, Oriented x3, No acute distress HEENT: Atraumatic, PERRLA, EOMI, Mucous membr. moist/pink Lungs: Clear to auscultation, Normal air movement Cardiovascular: Regular rate, Normal S1, Normal S2, No murmurs, Gallops, Rubs Abdomen: Normal bowel sounds, Soft, No tenderness, No hepatospenomegaly, No masses Extremities: No clubbing, No cyanosis, No edema, Normal pulses, No tenderness/ swelling Neurological: Normal speech - Labs Result Diagrams: 01/03/20 03:36 01/03/20 03:36 Lab results: Laboratory Results - last 24 hr 01/03/20 03:36: Sodium 134 L, Potassium 3.1 L, Chloride 102, Carbon Dioxide 23, Anion Gap 12, BUN 9 L, Creatinine 0.87, Estimated GFR (MDRD) 63, Glucose 126 H, Calcium 7.5 L, Total Bilirubin 1.2, AST 20, ALT Less than 7 L, Alkaline Phosphatase 230 H, Serum Total Protein 8.0, Albumin 1.7 L, Globulin 6.3 H, Albumin/Globulin Ratio 0.3 L 01/03/20 03:36: WBC 8.6, RBC 2.69 L, Hgb 8.0 L, Hct 23.4 L, MCV 86.9, MCH 29.6, MCHC 34.1, RDW 15.3 H, Plt Count 38 L, MPV 9.7, Neutrophils % (Manual) 52, Band Neuts % (Manual) 19 H, Lymphocytes % (Manual) 13 L, Monocytes % (Manual) 2, Eosinophils % (Manual) 5, Basophils % (Manual) 2, Metamyelocytes % (Man) 3 H, Myelocytes % 3 H, Nucleated RBCs # (Man) 1 H, Differential Comment Immature Cell (s), Other Cell Type 1, Plt Morphology Comment Appears Decreased L 01/02/20 13:43: PT 18.0 H, INR 1.5, APTT 45.5 H 01/02/20 13:43: Lactate Dehydrogenase 606 H 01/02/20 13:43: Uric Acid 5.7 Status: lab reviewed by me A/P - Problem (1) Lymphoma, T-cell Current Visit: Yes Code(s): C85.90 - NON-HODGKIN LYMPHOMA, UNSPECIFIED, UNSPECIFIED SITE Status: Acute - Plan Plan: bone marrow biopsy today needs mediport prior to dc poss cycle 1 chemo inpatient. seen by Dr. Alvarez and myself
[2020-01-03] MEDS ORDERED: Potassium Chloride 20 MEQ TAB PO SCH (10:45)
[2020-01-03] MEDS ORDERED: Phytonadione 10 MG/ML AMP PO SCH (10:45)
[2020-01-03] MEDS ORDERED: Sodium Bicarbonate 2.5 MEQ/5 ML VIAL ONE (13:13)
[2020-01-03] MEDS ORDERED: Fentanyl 100 MCG/2 ML VIAL ONE (13:13)
[2020-01-03] MEDS ORDERED: Midazolam HCl 2 mg/2 ml Vial ONE (13:14)
--- NOTE | 2020-01-03 15:04 | CT ---
CT Deep Bone Perc Biopsy History: T-cell lymphoma Comparison: None. Findings: Patient brought to the CT suite. All questions were answered. Informed consent was obtained . Timeout performed. Patient's posterior pelvis was prepped and draped in normal sterile fashion. 5 mL lidocaine was insti lled into the superficial and deep soft tissues. After adequate local anesthesia, a small skin incision was made. Using a 10-gauge needle, using CT guidance, 8 mL of marrow aspirate was obtained. A 2.5 cm core was obtained. Patient tolerated the procedure without complication. Impression: Technically successful CT-guided bone marrow biopsy.
[2020-01-03] MEDS: Vancomycin HCl 750 MG in Sodium Chloride 0.9% 250 ML 250 ML IVPB SCH (17:09)
[2020-01-03] MEDS: Temazepam 15 MG CAP PO PRN (20:22)
--- NOTE | 2020-01-03 20:36 | PDOC.HOSPP ---
- Subjective Encounter Date: 01/03/20 Subjective: Only problem is generalized fatigue. - Objective Vital Signs & Weight: Vital Signs (12 hours) Temp Pulse Resp BP Pulse Ox 01/03/20 20:00 98.9 F 99 16 161/74 H 94 L 01/03/20 16:00 98.7 F 92 18 137/68 95 01/03/20 12:00 98.4 F 84 18 127/65 95 Weight Admit Weight 106 lb 8 oz Weight 106 lb 8 oz I&O: 01/02/20 01/03/20 01/04/20 06:59 06:59 06:59 Intake Total 875 2380 1800 Output Total 200 975 250 Balance 675 1405 1550 Result Diagrams: 01/03/20 03:36 01/03/20 03:36 Hospitalist ROS - Medication Medications: Active Medications Generic Name Dose Route Start Last Admin Trade Name Freq PRN Reason Stop Dose Admin Acetaminophen 650 mg 01/01/20 22:51 01/02/20 08:00 Tylenol PO 650 mg Q4H PRN Administration Headache/Fever or Mild Pain Potassium Chloride/Dextrose/Sod Cl 1,000 mls @ 75 mls/hr 01/02/20 01:45 01/03 17:14 D5 1/2 Ns W/20 Meq Kcl IV 1,000 mls .[id number] LU Administration Piperacillin Sod/Tazobactam 100 mls @ 200 mls/hr 01/02/20 15:00 01/03/20 15: 10 Sod 3.375 gm/ Sodium Chloride IVPB 100 mls 0300,0900,1500,2100 LU Administration Vancomycin HCl 750 mg/ Sodium 250 mls @ 250 mls/hr 01/02/20 18:00 01/03/20 17 :09 Chloride IVPB 250 mls 1800 LU Administration Melatonin 3 mg 01/02/20 20:04 01/02/20 21:46 Melatonin PO 3 mg HS PRN Administration Insomnia Sodium Chloride 10 ml 01/02/20 09:00 01/03/20 09:19 Flush - Normal Saline IVF 10 ml Q12HR LU Administration Temazepam 15 mg 01/03/20 17:25 01/03/20 20:22 Restoril PO 15 mg HSPRN PRN Administration Insomnia - Exam General Appearance: NAD, awake alert Heart: RRR, no murmur, no gallops, no rubs, normal peripheral pulses Respiratory: CTAB, no wheezes, no rales, no ronchi, normal chest expansion, no tachypnea, normal percussion Gastrointestinal: soft, non-tender, non-distended, normal bowel sounds, no palpable masses, no hepatomegaly, no splenomegaly, no bruit Extremities: no cyanosis, no clubbing, no edema Skin: normal turgor, no lesions, no rashes Neurological: no focal deficits Musculoskeletal: normal tone Psychiatric: normal affect, lethargic Hosp A/P (1) Lymphoma, T-cell Code(s): C85.90 - NON-HODGKIN LYMPHOMA, UNSPECIFIED, UNSPECIFIED SITE Status: Acute (2) Pancytopenia Code(s): D61.818 - OTHER PANCYTOPENIA Status: Acute (3) Lymphadenopathy Code(s): R59.1 - GENERALIZED ENLARGED LYMPH NODES Status: Acute (4) Weakness Code(s): R53.1 - WEAKNESS Status: Acute - Plan Has BMBx planned today. Needs mediport. Planned by surg. Has GPR in 1/2 blood cultures. Discussed with surgery, oncology. CT with diffuse ROSETTE. Treatment plan pending BMBx.
[2020-01-04] MEDS: D5 1/2 NS w/20 mEq KCL 1,000 ML IV SCH (01:04)
[2020-01-04] MEDS: Piperacillin/Tazobactam 3.375 GM in Sodium Chloride 0.9% 100 ML IVPB SCH ×2 (02:39→12:36)
[2020-01-04 05:26] LABS: Vancomycin, Trough 15.9 ug/mL
[2020-01-04 05:32] LABS: ALT (SGPT) Less than 7 U/L (8-55); AST (SGOT) 19 U/L (5-34); Albumin 1.6 g/dL (3.4-4.8); Alkaline Phosphatase 235 U/L (40-110); Anion Gap 12 mmol/L (10-20); BUN (Urea Nitrogen) 7 mg/dL (9.8-20.1); Bilirubin, Total 1.3 mg/dL (0.2-1.2); Calc. Creatinine Clearance 46 mL/min (70-130); Calcium 7.5 mg/dL (7.8-10.44); Carbon Dioxide 22 mmol/L (23-31); Chloride 105 mmol/L (98-107); Estimated GFR-MDRD 70; Globulin 6.4 g/dL (2.4-3.5); Glucose 99 mg/dL (83-110); Potassium 3.7 mmol/L (3.5-5.1); Sodium 135 mmol/L (136-145)
[2020-01-04 05:41] LABS: Band 11 % (5-11); Eosinophils 7 % (0-10); Hemoglobin 7.5 g/dL (12.0-16.0); Lymphocytes 28 % (21-51); MDiff Complete? YES; Mean Corpuscular HGB CONC 33.3 g/dL (32.0-36.0); Mean Corpuscular Hemoglobin 29.3 pg (27.0-31.0); Mean Corpuscular Volume 88.1 fL (78.0-98.0); Mean Platelet Volume 10.3 fL (7.4-10.4); Monocytes 5 % (0-10); Myelocyte 1 % (0-0); Neutrophil 47 % (42-75); Nucleated RBC 3 % (0); Platelet Count 36 thou/uL (130-400); Platelet Morphology Comment Appears Decreased; RBC Distribution Width 15.9 % (11.5-14.5); Reactive Lymphocytes 1 % (0-10); Red Blood Cell (RBC) Count 2.54 mill/uL (4.20-5.40); White Blood Cell (WBC) Count 8.1 thou/uL (4.8-10.8)
[2020-01-04] MEDS ORDERED: Lidocaine 1% w/Epinephrine 1:100K 20 ML VIAL ONE (08:43)
[2020-01-04] MEDS ORDERED: Sodium Chloride 0.9% 10 ML ONE (08:43)
[2020-01-04] MEDS ORDERED: Bupivacaine 0.25% HCL 30 ML VIAL ONE (08:43)
[2020-01-04] MEDS ORDERED: Piperacillin/Tazobactam 3.375 GM VIAL ONE (09:09)
[2020-01-04] MEDS ORDERED: Sodium Chloride 0.9% 100 ML ONE (09:10)
[2020-01-04] MEDS ORDERED: SUGAMMADEX SODIUM 200 MG/2 ML VIAL ONE (09:26)
[2020-01-04] MEDS ORDERED: Fentanyl 100 MCG/2 ML VIAL ONE (09:26)
[2020-01-04] MEDS ORDERED: Ketamine 50 MG/ML (10ML VIAL) ONE (09:34)
[2020-01-04] MEDS ORDERED: Propofol 500 MG/50 ML VIAL ONE (09:35)
[2020-01-04] MEDS ORDERED: Ondansetron HCl/PF 4 MG/2 ML Vial IVP PRN (10:22)
[2020-01-04] MEDS ORDERED: PHENYLEPHRINE-NS 100 MCG/ML 10 ML SYRINGE ONE (10:36)
--- NOTE | 2020-01-04 11:42 | RAD ---
XR Chest 1 View History: Port catheter placement Comparison: Chest radiograph January 01, 2020 Findings: Port catheter is in place with tip at the inferior SVC without complication. Atelectatic ch anges both lung bases. Hilar adenopathy. Impression: Uncomplicated placement port catheter.
[2020-01-04] MEDS: Megestrol Acetate 40 MG TAB PO SCH (12:36)
--- NOTE | 2020-01-04 12:50 | OP ---
DATE OF PROCEDURE: 01/04/2020 PREOPERATIVE DIAGNOSES: 1. Acute T-cell lymphoma. 2. Pancytopenia. POSTOPERATIVE DIAGNOSES: 1. Acute T-cell lymphoma. 2. Pancytopenia. PROCEDURE PERFORMED: Placement of left subclavian Port-A-Cath under fluoroscopy. ANESTHESIA: Monitored anesthesia care and local. INDICATIONS FOR PROCEDURE: This 74-year-old woman is recently diagnosed with acute T-cell lymphoma. The patient is anemic and thrombocytopenic. She is brought to the operating room today for placement of Port-A-Cath for therapeutic interventions. DESCRIPTION OF PROCEDURE: Informed consent was obtained from the patient. She was brought to the operating room and placed in supine position. Following monitored anesthesia care, the left chest wall was sterilely prepped and draped in usual fashion. The skin below the left clavicle was anesthetized with 0.25% Marcaine with epinephrine. Left subclavian vein was cannulated with an 18-gauge introducer needle returning dark venous blood. Guidewire was passed through the needle and advanced into the left subclavian vein without resistance. The needle was withdrawn over the guidewire. Proper fitting of guidewire was confirmed by fluoroscopy. A stab incision was then made adjacent to the guidewire using 11-scalpel. A dilator was passed over the guidewire dilating the subcutaneous tissues. Dilator was then introduced with an introducer catheter as a unit over the guidewire, advancing this into the left subclavian vein without resistance. The dilator and guidewire were removed as a unit. 7.8-Mauritian catheter was then advanced through this introducer and placed in the left subclavian vein without resistance. The introducer catheter was peeled away. The catheter was then pulled back to length under fluoroscopy and connected to the port well. I raised subcutaneous pocket after the skin was infiltrated with 0.25% Marcaine with epinephrine. Hemostasis could not be achieved as the patient was oozy. Recent platelet count was in the 30,000. As a result, the patient received one pack of platelets. The port was then embedded in the subcutaneous pocket, secured to the anterior chest wall using 3-0 Prolene suture. Subcutaneous tissues were approximated over the port using interrupted sutures of 3-0 Vicryl. Skin incision was closed using a running stitch of 4-0 Monocryl suture in subcuticular fashion. Dermabond was applied over incisional closure. The patient tolerated the procedure without any apparent complication and was returned to recovery room in satisfactory condition. Total fluoroscopy time was 23 seconds. Job ID: [id number]
--- NOTE | 2020-01-04 14:16 | PDOC.HOSPP ---
- Subjective Encounter Date: 01/04/20 Subjective: Still feels tired, but no other complaint. - Objective Vital Signs & Weight: Vital Signs (12 hours) Temp Pulse Resp BP Pulse Ox 01/04/20 12:00 98.2 F 88 16 132/66 95 01/04/20 08:00 99.1 F 96 18 103/68 95 01/04/20 04:00 98.6 F 94 16 100/61 94 L Weight Admit Weight 106 lb 8 oz Weight 106 lb 8 oz I&O: 01/03/20 01/04/20 01/05/20 06:59 06:59 06:59 Intake Total 2380 1800 960 Output Total 975 250 Balance 1405 1550 960 Result Diagrams: 01/04/20 04:53 01/04/20 04:53 Hospitalist ROS - Medication Medications: Active Medications Generic Name Dose Route Start Last Admin Trade Name Freq PRN Reason Stop Dose Admin Acetaminophen 650 mg 01/01/20 22:51 01/02/20 08:00 Tylenol PO 650 mg Q4H PRN Administration Headache/Fever or Mild Pain Potassium Chloride/Dextrose/Sod Cl 1,000 mls @ 75 mls/hr 01/02/20 01:45 01/04 01:04 D5 1/2 Ns W/20 Meq Kcl IV 1,000 mls .[id number] LU Administration Piperacillin Sod/Tazobactam 100 mls @ 200 mls/hr 01/02/20 15:00 01/04/20 12: 36 Sod 3.375 gm/ Sodium Chloride IVPB Not Given 0300,0900,1500,2100 LU Vancomycin HCl 750 mg/ Sodium 250 mls @ 250 mls/hr 01/02/20 18:00 01/03/20 17 :09 Chloride IVPB 250 mls 1800 LU Administration Megestrol Acetate 40 mg 01/04/20 09:00 01/04/20 12:36 Megace PO 40 mg DAILY LU Administration Melatonin 3 mg 01/02/20 20:04 01/02/20 21:46 Melatonin PO 3 mg HS PRN Administration Insomnia Sodium Chloride 10 ml 01/02/20 09:00 01/04/20 12:37 Flush - Normal Saline IVF 10 ml Q12HR LU Administration Temazepam 15 mg 01/03/20 17:25 01/03/20 20:22 Restoril PO 15 mg HSPRN PRN Administration Insomnia - Exam General Appearance: NAD, awake alert ENT: normocephalic atraumatic, no oropharyngeal lesions, moist mucosa Neck: supple, symmetric, no JVD, no thyromegaly, no lymphadenopathy, no carotid bruit Heart: RRR, no murmur, no gallops, no rubs, normal peripheral pulses Respiratory: CTAB, no wheezes, no rales, no ronchi, normal chest expansion, no tachypnea, normal percussion Gastrointestinal: soft, non-tender, non-distended, normal bowel sounds, no palpable masses, no hepatomegaly, no splenomegaly, no bruit Extremities: no cyanosis, no clubbing, no edema Skin: normal turgor Neurological: no focal deficits Musculoskeletal: normal tone Psychiatric: lethargic Hosp A/P (1) Lymphoma, T-cell Code(s): C85.90 - NON-HODGKIN LYMPHOMA, UNSPECIFIED, UNSPECIFIED SITE Status: Acute (2) Pancytopenia Code(s): D61.818 - OTHER PANCYTOPENIA Status: Acute (3) Lymphadenopathy Code(s): R59.1 - GENERALIZED ENLARGED LYMPH NODES Status: Acute (4) Weakness Code(s): R53.1 - WEAKNESS Status: Acute - Plan Has BMBx pending. mediport placed. Has GPR in 1/[address] blood cultures[address]. [address] with diffuse ROSETTE. Treatment plan pending BMBx. Continue vancomycin today due to surg, but otherwise DC abx.
[2020-01-04] MEDS: Acetaminophen 325 MG TAB PO PRN (17:41)
[2020-01-04] MEDS: Vancomycin HCl 750 MG in Sodium Chloride 0.9% 250 ML 250 ML IVPB SCH (17:47)
[2020-01-04] MEDS: Temazepam 15 MG CAP PO PRN (20:29)
[2020-01-04] MEDS ORDERED: Loperamide HCl 2 MG CAP PO PRN (20:58)
[2020-01-04] MEDS: Saccharomyces boulardii 250 MG CAP PO SCH (23:32)
[2020-01-05] MEDS: D5 1/2 NS w/20 mEq KCL 1,000 ML IV SCH (00:15)
[2020-01-05] MEDS: Saccharomyces boulardii 250 MG CAP PO SCH ×2 (02:55→20:27)
[2020-01-05 05:40] LABS: Hemoglobin 7.4 g/dL (12.0-16.0); Mean Corpuscular HGB CONC 33.2 g/dL (32.0-36.0); Mean Corpuscular Hemoglobin 29.5 pg (27.0-31.0); Mean Corpuscular Volume 88.6 fL (78.0-98.0); Mean Platelet Volume 8.4 fL (7.4-10.4); Platelet Count 75 thou/uL (130-400); RBC Distribution Width 15.8 % (11.5-14.5); Red Blood Cell (RBC) Count 2.52 mill/uL (4.20-5.40); White Blood Cell (WBC) Count 8.8 thou/uL (4.8-10.8)
[2020-01-05 05:59] LABS: ALT (SGPT) 12 U/L (8-55); AST (SGOT) 44 U/L (5-34); Albumin 1.8 g/dL (3.4-4.8); Alkaline Phosphatase 269 U/L (40-110); Anion Gap 11 mmol/L (10-20); BUN (Urea Nitrogen) 6 mg/dL (9.8-20.1); Bilirubin, Total 1.2 mg/dL (0.2-1.2); Calc. Creatinine Clearance 55 mL/min (70-130); Calcium 7.3 mg/dL (7.8-10.44); Carbon Dioxide 23 mmol/L (23-31); Chloride 101 mmol/L (98-107); Estimated GFR-MDRD 84; Globulin 6.5 g/dL (2.4-3.5); Glucose 160 mg/dL (83-110); Potassium 3.9 mmol/L (3.5-5.1); Protein, Total 8.3 g/dL (6.0-8.3); Sodium 131 mmol/L (136-145)
[2020-01-05 06:27] LABS: Band 31 % (5-11); Eosinophils 2 % (0-10); Lymphocytes 21 % (21-51); MDiff Complete? YES; Metamyelocyte 6 % (0-0); Monocytes 4 % (0-10); Myelocyte 2 % (0-0); Neutrophil 34 % (42-75); Platelet Morphology Comment Appears Decreased; Vacuoles SLIGHT
[2020-01-05] MEDS: Ascorbic Acid 500 mg Chewable Tablet PO SCH ×2 (09:13→18:21)
[2020-01-05] MEDS: Megestrol Acetate 40 MG TAB PO SCH (09:14)
[2020-01-05] MEDS: Ferrous Sulfate 325 MG TAB PO SCH ×2 (09:14→18:21)
--- NOTE | 2020-01-05 09:29 | PRG ---
DATE OF SERVICE: 01/05/2020 SUBJECTIVE: The patient is still somnolent. She apparently had some reports of shortness of breath this morning and an EKG was performed which showed some sinus tach with PVCs. Currently, the patient says that she has been feeling a little short of breath for several days, but this is not new or different today. She denies any other symptoms or complaints. OBJECTIVE: VITAL SIGNS: Temperature is 98.9, pulse 102, respirations 18, O2 saturation 100% on 2 L nasal cannula, BP 113/69, up to 159/79. GENERAL APPEARANCE: Age-appropriate female, in no distress. She is somnolent, but awakens easily and converses and then goes back to sleep fairly quickly. HEART: Regular rate and rhythm without murmurs. LUNGS: Generally clear with a hint of a wheeze in the upper airways. No rales or rhonchi noted. ABDOMEN: Soft, nontender, and nondistended. Positive bowel sounds. No masses and no organomegaly. EXTREMITIES: No cyanosis, clubbing, or edema. LABORATORY DATA: White count is 8.8, hemoglobin 7.4, platelets 75, has 34% neutrophils, 31% bands. Sodium 131, potassium 3.9, chloride 101, BUN 6, creatinine 0.68, glucose 160, calcium 7.3, albumin 1.8. IMPRESSION AND PLAN: 1. T-cell lymphoma. Bone marrow biopsy still pending. Discussed the case extensively with Dr. Alvarez who essentially is awaiting to make a decision whether to treat the patient here with her first cycle versus doing it at the clinic. Essentially that will hinge on whether the patient will be functional enough to be able to go home and follow up for the therapy versus needing to go to rehab facility. We will await word from her on that. 2. Dyspnea, appears to be relatively mild and more chronic. We will check an ABG and ensure that she is not retaining some CO2. We will also check an ammonia level. Her chest x-ray yesterday was clear. 3. Metabolic encephalopathy, primarily manifest as lethargy and somnolence, could be related to an underlying lymphoma, but again checking ABG and ammonia level. 4. Anemia, given her shortness of breath and tachycardia, she appears to be symptomatic. Dr. Alvarez has ordered a transfusion. 5. Hyponatremia. The patient has been on D5 half-normal saline. I am going to discontinue that and recheck her levels tomorrow. 6. Status post MediPort placement, tolerated it well, post chest x-ray look good. Job ID: [id number]
[2020-01-05 10:57] LABS: Actual Bicarbonate (HCO3a) 25.9 mEq/L (22-28); Analyzer IN Cardio OR; Base Excess (BEa) 1.7 mEq/L (-2.0 to +3.0); Calcium, Ionized 1.09 mmol/L (1.12-1.30); Carboxyhemoglobin (COHb) 1.4 gm% (0.0-3.0); Hemoglobin (Hb) 8.2 g/dL (12.0-16.0); O2 Tension (PaO2) 63.8 mmHg (> 70.0); Potassium - ABG Lab 3.53 mmol/L (3.70-5.30); pH, Arterial 7.44 (7.35-7.45)
[2020-01-05 10:59] LABS: Puncture Site RRA
--- NOTE | 2020-01-05 12:56 | PDOC.MOPN ---
Interval History: somnolent today - Vital Signs Vital Signs: Vital Signs (12 hours) Temp Pulse Pulse Resp BP BP Pulse Ox 01/05/20 11:29 94 L 01/05/20 10:55 98.7 F 86 22 H 144/81 H 93 L 01/05/20 08:00 98.9 F 102 H 18 159/79 H 100 01/05/20 06:25 98.1 F 103 H 22 H 113/69 100 Weight Admit Weight 106 lb 8 oz Weight 106 lb 8 oz - Physical Exam General: No acute distress HEENT: Atraumatic, PERRLA, EOMI, Mucous membr. moist/pink Lungs: Clear to auscultation, Normal air movement Cardiovascular: Regular rate, Normal S1, Normal S2, No murmurs, Gallops, Rubs Abdomen: Normal bowel sounds, Soft, No tenderness, No hepatospenomegaly, No masses Extremities: No clubbing, No cyanosis, No edema, Normal pulses, No tenderness/ swelling - Labs Result Diagrams: 01/05/20 04:45 01/05/20 04:45 Lab results: Laboratory Results - last 24 hr 01/05/20 10:22: Specimen Type ARTERIAL, Puncture Site RRA, Bicarbonate Actual 25.9, ABG pH 7.44, ABG pCO2 39.0, ABG pO2 63.8, ABG O2 Sat Calc/Darrion 93.3 L, ABG O2 Content 10.7 L, ABG Base Excess 1.7, ABG Hematocrit 24.0 L, ABG Hemoglobin 8.2 L, ABG Oxyhemoglobin 91.7 L, ABG Carboxyhemoglobin 1.4, ABG Methemoglobin 0.30, ABG Deoxyhemoglobin 6.6 H, Stephen Test POSITIVE, A-a O2 Gradient 37.180 H, Ionized Calcium 1.09 L, Mode of Support RA, Inspired O2 21, Sodium 129 L, Potassium 3.53 L, Chloride 99 01/05/20 09:37: Ammonia 38 01/05/20 08:45: Blood Type O POSITIVE, Antibody Screen NEGATIVE, Crossmatch See Detail 01/05/20 04:45: Sodium 131 L, Potassium 3.9, Chloride 101, Carbon Dioxide 23, Anion Gap 11, BUN 6 L, Creatinine 0.68, Estimated GFR (MDRD) 84, Glucose 160 H, Calcium 7.3 L, Total Bilirubin 1.2, AST 44 H, ALT 12, Alkaline Phosphatase 269 H , Serum Total Protein 8.3, Albumin 1.8 L, Globulin 6.5 H, Albumin/Globulin Ratio 0.3 L 01/05/20 04:45: WBC 8.8, RBC 2.52 L, Hgb 7.4 L, Hct 22.4 L, MCV 88.6, MCH 29.5, MCHC 33.2, RDW 15.8 H, Plt Count 75 L, MPV 8.4, Neutrophils % (Manual) 34 L, Band Neuts % (Manual) 31 H, Lymphocytes % (Manual) 21, Monocytes % (Manual) 4, Eosinophils % (Manual) 2, Metamyelocytes % (Man) 6 H, Myelocytes % 2 H, Neutrophils # Not Reportable, Lymphocytes # Not Reportable, WBC Morphology SLIGHT, Plt Morphology Comment Appears Decreased L 01/01/20 18:00: Blood Type O POSITIVE, Antibody Screen NEGATIVE, Crossmatch See Detail Status: lab reviewed by me A/P - Problem (1) Lymphoma, T-cell Current Visit: Yes Code(s): C85.90 - NON-HODGKIN LYMPHOMA, UNSPECIFIED, UNSPECIFIED SITE Status: Acute - Plan Plan: Mediport in place await bone marrow biopsy results consider first dose chemo this weekend.
[2020-01-05 13:33] LABS: Magnesium 1.6 mg/dL (1.6-2.6)
[2020-01-05 13:36] LABS: Phosphorus 1.8 mg/dL (2.3-4.7)
[2020-01-05] MEDS ORDERED: Potassium Phosphate 30 MMOL in Sodium Chloride 0.9% 250 ML 250 ML IVPB SCH (13:45)
[2020-01-05] MEDS ORDERED: Potassium Phosphate 30 MMOL, Magnesium Sulfate 3 GM in Sodium Chloride 0.9% 250 ML 250 ML IVPB SCH (13:45)
[2020-01-05] MEDS ORDERED: Magnesium Sulfate 3 GM in Sodium Chloride 0.9% 100 ML IVPB SCH (13:45)
--- NOTE | 2020-01-05 16:44 | EKG ---
Test Reason : Blood Pressure : / mmHG Vent. Rate : 115 BPM Atrial Rate : 115 BPM P-R Int : 126 ms QRS Dur : 116 ms QT Int : 340 ms P-R-T Axes : 072 081 -09 degrees QTc Int : 470 ms Sinus tachycardia with Premature supraventricular complexes Right bundle branch block T wave abnormality, consider inferior ischemia Abnormal ECG When compared with ECG of 01-JAN-2020 16:28, (Unconfirmed) No significant change was found Confirmed by DR. Foreign BASILIO ([id number]) on 01/05/2020 4:43:45 PM Referred By: CALI Confirmed By:DR. Foreign BASILIO
[2020-01-05] MEDS: Vancomycin HCl 750 MG in Sodium Chloride 0.9% 250 ML 250 ML IVPB SCH (18:21)
[2020-01-05] MEDS: Temazepam 15 MG CAP PO PRN (20:27)
[2020-01-06 04:27] LABS: Phosphorus 2.7 mg/dL (2.3-4.7)
[2020-01-06 04:28] LABS: ALT (SGPT) 15 U/L (8-55); AST (SGOT) 31 U/L (5-34); Albumin 1.8 g/dL (3.4-4.8); Alkaline Phosphatase 278 U/L (40-110); Anion Gap 12 mmol/L (10-20); BUN (Urea Nitrogen) 5 mg/dL (9.8-20.1); Bilirubin, Total 1.2 mg/dL (0.2-1.2); Calc. Creatinine Clearance 55 mL/min (70-130); Calcium 7.5 mg/dL (7.8-10.44); Carbon Dioxide 25 mmol/L (23-31); Chloride 98 mmol/L (98-107); Estimated GFR-MDRD 84; Globulin 7.1 g/dL (2.4-3.5); Glucose 75 mg/dL (83-110); Magnesium 2.3 mg/dL (1.6-2.6); Protein, Total 8.9 g/dL (6.0-8.3); Sodium 131 mmol/L (136-145)
[2020-01-06 05:05] LABS: Band 17 % (5-11); Eosinophils 3 % (0-10); Hemoglobin 9.5 g/dL (12.0-16.0); Lymphocytes 19 % (21-51); MDiff Complete? YES; Mean Corpuscular HGB CONC 34.1 g/dL (32.0-36.0); Mean Corpuscular Hemoglobin 29.4 pg (27.0-31.0); Mean Corpuscular Volume 86.2 fL (78.0-98.0); Mean Platelet Volume 9.4 fL (7.4-10.4); Metamyelocyte 2 % (0-0); Monocytes 11 % (0-10); Neutrophil 47 % (42-75); Nucleated RBC 1 % (0); Platelet Count 61 thou/uL (130-400); Platelet Morphology Comment Appears Decreased; RBC Distribution Width 15.6 % (11.5-14.5); RBC Morphology Normal; Red Blood Cell (RBC) Count 3.22 mill/uL (4.20-5.40); White Blood Cell (WBC) Count 8.3 thou/uL (4.8-10.8)
[2020-01-06] MEDS: Ascorbic Acid 500 mg Chewable Tablet PO SCH ×2 (08:40→17:27)
[2020-01-06] MEDS: Ferrous Sulfate 325 MG TAB PO SCH ×2 (08:40→17:27)
[2020-01-06] MEDS: Megestrol Acetate 40 MG TAB PO SCH (08:40)
[2020-01-06] MEDS ORDERED: Sodium Phosphate 30 MMOL in Sodium Chloride 0.9% 250 ML 250 ML IVPB SCH (11:15)
--- NOTE | 2020-01-06 11:40 | PDOC.MOPN ---
Interval History: she is a little stronger now, sat in chair for 30 minutes but is worn out by this. no nausea. no headaches. but she is still quite somnolent and sleepy - Vital Signs Vital Signs: Vital Signs (12 hours) Temp Pulse Resp BP BP Pulse Ox 01/06/20 08:09 98.2 F 110 H 20 153/79 H 93 L 01/06/20 04:00 98.9 F 75 16 151/76 H 94 L 01/06/20 03:15 113 H 16 150/68 H 89 L 01/05/20 23:43 98.3 F 103 H 16 93 L Weight Admit Weight 106 lb 8 oz Weight 106 lb 8 oz - Physical Exam General: Other (sleepy but arousable) HEENT: Atraumatic Lungs: Clear to auscultation Cardiovascular: Regular rate Abdomen: Normal bowel sounds, Soft Extremities: No clubbing, Other (diffuse LAD ange necj, ax, and inguinal region) Skin: No rashes Neurological: Normal speech - Labs Result Diagrams: 01/06/20 03:28 01/06/20 03:28 Lab results: Laboratory Results - last 24 hr 01/06/20 03:28: Phosphorus 2.7 01/06/20 03:28: Sodium 131 L, Potassium 4.0, Chloride 98, Carbon Dioxide 25, Anion Gap 12, BUN 5 L, Creatinine 0.68, Estimated GFR (MDRD) 84, Glucose 75 L, Calcium 7.5 L, Magnesium 2.3, Total Bilirubin 1.2, AST 31, ALT 15, Alkaline Phosphatase 278 H, Serum Total Protein 8.9 H, Albumin 1.8 L, Globulin 7.1 H, Albumin/Globulin Ratio 0.3 L 01/06/20 03:28: WBC 8.3, RBC 3.22 L, Hgb 9.5 L, Hct 27.8 L, MCV 86.2, MCH 29.4, MCHC 34.1, RDW 15.6 H, Plt Count 61 L, MPV 9.4, Neutrophils % (Manual) 47, Band Neuts % (Manual) 17 H, Lymphocytes % (Manual) 19 L, Monocytes % (Manual) 11 H, Eosinophils % (Manual) 3, Basophils % (Manual) 1, Metamyelocytes % (Man) 2 H, Nucleated RBCs # (Man) 1 H, Plt Morphology Comment Appears Decreased L, RBC Morph Comment Normal 01/05/20 09:37: Phosphorus 1.8 L, Magnesium 1.6 01/05/20 08:45: Crossmatch See Detail 01/03/20 14:00: Flow Cytometry Interp A/P - Problem (1) Somnolence, daytime Current Visit: Yes Code(s): R40.0 - SOMNOLENCE Status: Acute (2) Lymphoma, T-cell Current Visit: Yes Code(s): C85.90 - NON-HODGKIN LYMPHOMA, UNSPECIFIED, UNSPECIFIED SITE Status: Acute (3) Pancytopenia Current Visit: Yes Code(s): D61.818 - OTHER PANCYTOPENIA Status: Acute (4) Thrombocytopenia Current Visit: Yes Code(s): D69.6 - THROMBOCYTOPENIA, UNSPECIFIED Status: Acute (5) Lymphadenopathy Current Visit: No Code(s): R59.1 - GENERALIZED ENLARGED LYMPH NODES Status: Acute - Plan Plan: 1. CSF cytology, transfuse plts beforehand to get plts >100 2. start CVP tomorrow, i do not think she will tolerate adriamycin right now. Her PS is 4. i discussed this and the prognosis with the family. They understand if we cannot get her feeling better and improve PS this may not be curable but we will start treatment and see how she does 3. OOB to chair 4. consider swing bed if she improves
[2020-01-06] MEDS: Acetaminophen 325 MG TAB PO PRN (16:05)
[2020-01-06] MEDS: Vancomycin HCl 750 MG in Sodium Chloride 0.9% 250 ML 250 ML IVPB SCH (17:28)
[2020-01-06] MEDS: Saccharomyces boulardii 250 MG CAP PO SCH (20:10)
--- NOTE | 2020-01-06 21:08 | PDOC.HOSPP ---
- Subjective Encounter Date: 01/06/20 Encounter Time: 11:00 Subjective: no overnight events. Patient feeling better overall today and has no complaints. Pending chemotherapy initiation. - Objective Vital Signs & Weight: Vital Signs (12 hours) Temp Pulse Resp BP BP Pulse Ox 01/06/20 20:00 98.6 F 114 H 16 141/81 H 93 L 01/06/20 16:05 100.1 F H 85 20 118/66 97 01/06/20 11:52 98.7 F 104 H 18 135/63 93 L Weight Admit Weight 106 lb 8 oz Weight 106 lb 8 oz I&O: 01/05/20 01/06/20 01/07/20 06:59 06:59 06:59 Intake Total 2009 1080 200 Output Total 100 950 650 Balance 1910 130 -450 Result Diagrams: 01/06/20 03:28 01/06/20 03:28 Hospitalist ROS - Review of Systems Constitutional: denies: fever, chills, sweats, weakness, malaise, other Respiratory: denies: cough, dry, shortness of breath, hemoptysis, SOB with excertion, pleuritic pain, sputum, wheezing, other Cardiovascular: denies: chest pain, palpitations, orthopnea, paroxysmal noc. dyspnea, edema, light headedness, other Gastrointestinal: denies: nausea, vomiting, abdominal pain, diarrhea, constipation, melena, hematochezia, other Genitourinary: denies: dysuria, frequency, incontinence, hematuria, retention, other - Medication Medications: Active Medications Generic Name Dose Route Start Last Admin Trade Name Freq PRN Reason Stop Dose Admin Acetaminophen 650 mg 01/01/20 22:51 01/06/20 16:05 Tylenol PO 650 mg Q4H PRN Administration Headache/Fever or Mild Pain Ascorbic Acid 500 mg 01/05/20 08:00 01/06/20 17:27 Vitamin C PO 500 mg BID-WM LU Administration Ferrous Sulfate 325 mg 01/05/20 08:00 01/06/20 17:27 Feosol PO 325 mg BID-WM LU Administration Vancomycin HCl 750 mg/ Sodium 250 mls @ 250 mls/hr 01/02/20 18:00 01/06/20 17 :28 Chloride IVPB 250 mls 1800 LU Administration Loperamide HCl 2 mg 01/04/20 20:58 01/05/20 02:55 Imodium PO 2 mg Q6H PRN Administration Diarrhea/Loose Stools Megestrol Acetate 40 mg 01/04/20 09:00 01/06/20 08:40 Megace PO 40 mg DAILY LU Administration Melatonin 3 mg 01/02/20 20:04 01/02/20 21:46 Melatonin PO 3 mg HS PRN Administration Insomnia Saccharomyces Boulardii 250 mg 01/04/20 21:00 01/06/20 20:10 Florastor PO 250 mg 2100 LU Administration Sodium Chloride 10 ml 01/05/20 09:00 01/06/20 20:11 Flush - Normal Saline IVF 10 ml Q12HR LU Administration Temazepam 15 mg 01/03/20 17:25 01/05/20 20:27 Restoril PO 15 mg HSPRN PRN Administration Insomnia - Exam General Appearance: NAD, awake alert Eye: PERRL, anicteric sclera Neck: no JVD Heart: RRR, no murmur, no gallops, no rubs Respiratory: CTAB, no wheezes, no rales, no ronchi, normal chest expansion, no tachypnea Gastrointestinal: soft, non-tender, non-distended, normal bowel sounds, no bruit Extremities: no edema Neurological: cranial nerve grossly intact, no focal deficits Musculoskeletal: normal tone, normal strength Psychiatric: normal affect, normal behavior, A&O x 3 Hosp A/P - Plan #T-cell lymphoma -pending CSF cytology; require Plt > 100 prior to procedure -pending chemotherapy initiation as per oncology otherwise management unchanged
[2020-01-06] MEDS: Temazepam 15 MG CAP PO PRN (21:21)
[2020-01-07 03:44] LABS: ALT (SGPT) 11 U/L (8-55); AST (SGOT) 26 U/L (5-34); Albumin 1.6 g/dL (3.4-4.8); Alkaline Phosphatase 267 U/L (40-110); Anion Gap 12 mmol/L (10-20); BUN (Urea Nitrogen) 8 mg/dL (9.8-20.1); Bilirubin, Total 0.9 mg/dL (0.2-1.2); Calc. Creatinine Clearance 48 mL/min (70-130); Calcium 8.2 mg/dL (7.8-10.44); Carbon Dioxide 26 mmol/L (23-31); Chloride 99 mmol/L (98-107); Estimated GFR-MDRD 72; Globulin 6.6 g/dL (2.4-3.5); Glucose 107 mg/dL (83-110); Magnesium 1.8 mg/dL (1.6-2.6); Potassium 3.4 mmol/L (3.5-5.1); Protein, Total 8.2 g/dL (6.0-8.3); Sodium 134 mmol/L (136-145)
[2020-01-07 03:56] LABS: Band 19 % (5-11); Eosinophils 3 % (0-10); Hemoglobin 8.4 g/dL (12.0-16.0); Lymphocytes 22 % (21-51); MDiff Complete? YES; Mean Corpuscular HGB CONC 33.4 g/dL (32.0-36.0); Mean Corpuscular Hemoglobin 28.8 pg (27.0-31.0); Mean Corpuscular Volume 86.2 fL (78.0-98.0); Mean Platelet Volume 9.1 fL (7.4-10.4); Metamyelocyte 1 % (0-0); Monocytes 5 % (0-10); Myelocyte 4 % (0-0); Neutrophil 45 % (42-75); Nucleated RBC 4 % (0); Platelet Count 55 thou/uL (130-400); Platelet Morphology Comment Appears Decreased; RBC Distribution Width 15.7 % (11.5-14.5); Vacuoles SLIGHT; White Blood Cell (WBC) Count 8.1 thou/uL (4.8-10.8)
[2020-01-07 07:52] LABS: Phosphorus 5.1 mg/dL (2.3-4.7)
[2020-01-07 09:24] LABS: Hemoglobin 8.4 g/dL (12.0-16.0); Mean Corpuscular HGB CONC 33.9 g/dL (32.0-36.0); Mean Corpuscular Hemoglobin 29.2 pg (27.0-31.0); Mean Corpuscular Volume 86.3 fL (78.0-98.0); Mean Platelet Volume 8.5 fL (7.4-10.4); Platelet Count 101 thou/uL (130-400); RBC Distribution Width 15.3 % (11.5-14.5); Red Blood Cell (RBC) Count 2.89 mill/uL (4.20-5.40); White Blood Cell (WBC) Count 8.1 thou/uL (4.8-10.8)
[2020-01-07 10:00] LABS: Vancomycin, Trough 11.3 ug/mL
[2020-01-07] MEDS: Ascorbic Acid 500 mg Chewable Tablet PO SCH ×2 (10:06→17:37)
[2020-01-07] MEDS: Megestrol Acetate 40 MG TAB PO SCH (10:06)
[2020-01-07] MEDS: Ferrous Sulfate 325 MG TAB PO SCH ×2 (10:06→17:37)
--- NOTE | 2020-01-07 11:29 | PDOC.MOPN ---
Interval History: resting comfortably, she stayed awake last night to watch grandson play basketball and went outside in wheelchair ytd. - Vital Signs Vital Signs: Vital Signs (12 hours) Temp Pulse Pulse Resp BP BP Pulse Ox 01/07/20 08:00 99.1 F 108 H 20 136/70 95 01/07/20 06:21 99.2 F 108 H 16 136/70 01/07/20 05:56 98.8 F 107 H 16 138/69 92 L 01/07/20 03:57 99.9 F H 107 H 16 125/63 92 L 01/06/20 23:40 98.9 F 113 H 20 137/73 92 L Weight Admit Weight 106 lb 8 oz Weight 106 lb 8 oz - Physical Exam General: Other (sleepy but arousable) Lungs: Clear to auscultation Cardiovascular: Regular rate Abdomen: Normal bowel sounds Extremities: No edema, Other (LAD noted) Skin: No rashes - Labs Result Diagrams: 01/07/20 08:09 01/07/20 03:15 Lab results: Laboratory Results - last 24 hr 01/07/20 09:20: Vancomycin Trough 11.3 01/07/20 08:09: WBC 8.1, RBC 2.89 L, Hgb 8.4 L, Hct 24.9 L, MCV 86.3, MCH 29.2, MCHC 33.9, RDW 15.3 H, Plt Count 101 L, MPV 8.5 01/07/20 03:15: Phosphorus 5.1 H 01/07/20 03:15: Sodium 134 L, Potassium 3.4 L, Chloride 99, Carbon Dioxide 26, Anion Gap 12, BUN 8 L, Creatinine 0.78, Estimated GFR (MDRD) 72, Glucose 107, Calcium 8.2, Magnesium 1.8, Total Bilirubin 0.9, AST 26, ALT 11, Alkaline Phosphatase 267 H, Serum Total Protein 8.2, Albumin 1.6 L, Globulin 6.6 H, Albumin/Globulin Ratio 0.2 L 01/07/20 03:15: WBC 8.1, RBC 2.90 L, Hgb 8.4 L, Hct 25.0 L, MCV 86.2, MCH 28.8, MCHC 33.4, RDW 15.7 H, Plt Count 55 L, MPV 9.1, Neutrophils % (Manual) 45, Band Neuts % (Manual) 19 H, Lymphocytes % (Manual) 22, Monocytes % (Manual) 5, Eosinophils % (Manual) 3, Basophils % (Manual) 1, Metamyelocytes % (Man) 1 H, Myelocytes % 4 H, Nucleated RBCs # (Man) 4 H, WBC Morphology SLIGHT, Plt Morphology Comment Appears Decreased L 01/06/20 22:45: Blood Type O POSITIVE, Antibody Screen NEGATIVE 01/05/20 08:45: Crossmatch See Detail A/P - Problem (1) Somnolence, daytime Current Visit: Yes Code(s): R40.0 - SOMNOLENCE Status: Acute (2) Lymphoma, T-cell Current Visit: Yes Code(s): C85.90 - NON-HODGKIN LYMPHOMA, UNSPECIFIED, UNSPECIFIED SITE Status: Acute (3) Pancytopenia Current Visit: Yes Code(s): D61.818 - OTHER PANCYTOPENIA Status: Acute (4) Thrombocytopenia Current Visit: Yes Code(s): D69.6 - THROMBOCYTOPENIA, UNSPECIFIED Status: Acute (5) Lymphadenopathy Current Visit: No Code(s): R59.1 - GENERALIZED ENLARGED LYMPH NODES Status: Acute - Plan Plan: 1. Stage IV lymphoma given BM involvement, CSF sampling ordered 2. start CVP tomorrow, review path from bone marrow and test for cd 30 3. cont OOB to chair 4. platelets prn, need to be >100 for LP
[2020-01-07] MEDS ORDERED: Magnesium Sulfate 2 GM in Sodium Chloride 0.9% 100 ML IVPB SCH (12:15)
[2020-01-07] MEDS ORDERED: Potassium Chloride 40 MEQ, Magnesium Sulfate 2 GM in Sodium Chloride 0.9% 250 ML 250 ML IVPB SCH (12:30)
--- NOTE | 2020-01-07 12:35 | PRG ---
DATE OF SERVICE: 01/07/2020 SUBJECTIVE: Ms. Lopes is a 74-year-old woman, recently diagnosed with T-cell lymphoma. She is postoperative day #3, status post left subclavian Port-A-Cath placement. She is awake and alert today. She is quite deconditioned. Appetite is poor, though slightly improved over the last 48 hours. OBJECTIVE: VITAL SIGNS: This morning includes blood pressure 136/70, pulse 108, respiratory rate is 20, temperature is 99.1 degrees Fahrenheit, oxygen saturation is 95% on room air. HEENT: Bilateral scleral edema. HEART: Regular rate with sinus tachycardia. No murmurs or gallops auscultated. LUNGS: Clear to auscultation bilaterally. Breathing, regular and nonlabored. ABDOMEN: Soft, nontender, nondistended. Left chest wall is examined. The Port-A-Cath site is intact. There is bruising of the overlying skin. No drainage from incision. NEUROLOGIC: No focal deficits present. LABORATORY FINDINGS: Include CBC with 8100 white blood cells, hemoglobin and hematocrit are 8.4 and 25.0 respectively, platelet count is 55,000 and improved to 101,000 following a transfusion of 6-pack of platelets. Metabolic profile; sodium 134, potassium is 3.4, chloride is 99, bicarb is 26, BUN is 8, creatinine is 0.78, glucose is 107, magnesium is 1.8, and phosphorus is 5.1. IMPRESSIONS: 1. Recently diagnosed T-cell lymphoma. 2. [id number]-[id number] malnutrition. 3. Acute hypokalemia. 4. Acute hypomagnesemia. 5. Acute hyponatremia. PLAN: 1. Correct abnormal electrolytes. 2. I discussed with the patient and her adult daughter at bedside. The patient will need enteral nutritional supplementation to augment whatever she is able to take by mouth in order to provide adequate and daily nutritional requirements. 3. Oncology is planning chemotherapy within the next 24 to 48 hours. There is no further surgical indication for this patient at this time. Job ID: [id number]
[2020-01-07] MEDS: Vancomycin HCl 1 GM in Premix Bag 1 BAG IVPB SCH (12:45)
--- NOTE | 2020-01-07 12:46 | RAD ---
XR Abdomen 1 View/KUB History: Feeding tube placement Comparison: None. Findings: A feeding tube is in place with tip in the distal stomach/gastric antrum. Impression: Weighted feeding tube tip at the gastric antrum.
--- NOTE | 2020-01-07 12:59 | PDOC.HOSPP ---
- Subjective Encounter Date: 01/07/20 Encounter Time: 09:00 Subjective: no overnight events. This morning, sitting comfortably and eating breakfast. Has no complaints. Pending CSF tap for cytology and initation of chemotherapy tomorrow. - Objective Vital Signs & Weight: Vital Signs (12 hours) Temp Pulse Pulse Resp BP BP Pulse Ox 01/07/20 08:00 99.1 F 108 H 20 136/70 95 01/07/20 06:21 99.2 F 108 H 16 136/70 01/07/20 05:56 98.8 F 107 H 16 138/69 92 L 01/07/20 03:57 99.9 F H 107 H 16 125/63 92 L Weight Admit Weight 106 lb 8 oz Weight 106 lb 8 oz I&O: 01/06/20 01/07/20 01/08/20 06:59 06:59 06:59 Intake Total 1080 660 Output Total 950 750 Balance 130 -90 Result Diagrams: 01/07/20 08:09 01/07/20 03:15 Hospitalist ROS - Review of Systems Constitutional: reports: weakness. denies: fever, chills, sweats, malaise, other Respiratory: denies: cough, dry, shortness of breath, hemoptysis, SOB with excertion, pleuritic pain, sputum, wheezing, other Cardiovascular: denies: chest pain, palpitations, orthopnea, paroxysmal noc. dyspnea, edema, light headedness, other Gastrointestinal: denies: nausea, vomiting, abdominal pain, diarrhea, constipation, melena, hematochezia, other Genitourinary: denies: dysuria, frequency, incontinence, hematuria, retention, other - Medication Medications: Active Medications Generic Name Dose Route Start Last Admin Trade Name Freq PRN Reason Stop Dose Admin Acetaminophen 650 mg 01/01/20 22:51 01/06/20 16:05 Tylenol PO 650 mg Q4H PRN Administration Headache/Fever or Mild Pain Ascorbic Acid 500 mg 01/05/20 08:00 01/07/20 10:06 Vitamin C PO 500 mg BID-WM LU Administration Ferrous Sulfate 325 mg 01/05/20 08:00 01/07/20 10:06 Feosol PO 325 mg BID-WM LU Administration Vancomycin HCl 1 gm/ Device 200 mls @ 200 mls/hr 01/07/20 11:00 01/07/20 12: 45 IVPB 200 mls 1100 LU Administration Loperamide HCl 2 mg 01/04/20 20:58 01/05/20 02:55 Imodium PO 2 mg Q6H PRN Administration Diarrhea/Loose Stools Megestrol Acetate 40 mg 01/04/20 09:00 01/07/20 10:06 Megace PO 40 mg DAILY LU Administration Melatonin 3 mg 01/02/20 20:04 01/02/20 21:46 Melatonin PO 3 mg HS PRN Administration Insomnia Saccharomyces Boulardii 250 mg 01/04/20 21:00 01/06/20 20:10 Florastor PO 250 mg 2100 LU Administration Sodium Chloride 10 ml 01/05/20 09:00 01/07/20 10:07 Flush - Normal Saline IVF 10 ml Q12HR LU Administration Temazepam 15 mg 01/03/20 17:25 01/06/20 21:21 Restoril PO 15 mg HSPRN PRN Administration Insomnia - Exam General Appearance: NAD, awake alert Heart: RRR, no murmur, no gallops, no rubs, normal peripheral pulses Respiratory: CTAB, no wheezes, no rales, no ronchi, normal chest expansion, no tachypnea, normal percussion Gastrointestinal: soft, non-tender, non-distended, normal bowel sounds, no palpable masses, no hepatomegaly, no splenomegaly, no bruit Extremities: no edema Psychiatric: normal affect, normal behavior, A&O x 3 Hosp A/P - Plan #stage IV T-cell lymphoma -pending CSF cytology; Plt 101; however, per radiology will be able to do only 3 /2 -pending chemotherapy initiation as per oncology on 01/07; will monitor for TLS once chemo started and initiate prophylaxis if deemed necessary per oncology recs -discussed initiation of chemotherapy with family -feeding tube placed and confirmed via abd xray () otherwise management unchanged
[2020-01-07] MEDS ORDERED: Albumin 25% 25 GM/100 ML BOT IVPB SCH (17:15)
[2020-01-07] MEDS ORDERED: Furosemide 20 MG/2 ML VIAL SLOW IVP SCH ×2 (17:15→21:00)
[2020-01-07] MEDS: Albumin 25% 25 GM/100 ML BOT IVPB SCH (20:15)
[2020-01-07] MEDS: Temazepam 15 MG CAP PO PRN (20:42)
[2020-01-07] MEDS: Saccharomyces boulardii 250 MG CAP PO SCH (20:42)
[2020-01-08 05:22] LABS: Phosphorus 4.3 mg/dL (2.3-4.7); Uric Acid 6.3 mg/dL (2.6-6.0)
[2020-01-08 05:36] LABS: ALT (SGPT) 15 U/L (8-55); AST (SGOT) 29 U/L (5-34); Albumin 2.5 g/dL (3.4-4.8); Alkaline Phosphatase 291 U/L (40-110); Anion Gap 13 mmol/L (10-20); BUN (Urea Nitrogen) 6 mg/dL (9.8-20.1); Bilirubin, Total 1.2 mg/dL (0.2-1.2); Calc. Creatinine Clearance 46 mL/min (70-130); Calcium 9.9 mg/dL (7.8-10.44); Carbon Dioxide 30 mmol/L (23-31); Chloride 96 mmol/L (98-107); Estimated GFR-MDRD 69; Globulin 6.5 g/dL (2.4-3.5); Glucose 118 mg/dL (83-110); Potassium 3.5 mmol/L (3.5-5.1); Sodium 135 mmol/L (136-145)
[2020-01-08] MEDS ORDERED: VINCRISTINE SULFATE IVP SCH ×2 (06:00→07:15)
[2020-01-08] MEDS ORDERED: CYCLOPHOSPHAMIDE IVPB SCH ×2 (06:00→13:00)
[2020-01-08] MEDS ORDERED: PALONOSETRON HCL 0.05 MG/ML 5 ML VIAL IVP SCH (06:00)
[2020-01-08] MEDS ORDERED: ADMIXTURE FEE CHEMO IVP SCH (06:00)
[2020-01-08] MEDS ORDERED: Dexamethasone 10 MG in Sodium Chloride 0.9% 50 ML IVPB SCH (06:00)
[2020-01-08] MEDS ORDERED: SODIUM CHLORIDE 0.9% IVPB SCH ×2 (06:00→13:00)
[2020-01-08 07:08] LABS: Band 28 % (5-11); Eosinophils 5 % (0-10); Hemoglobin 8.2 g/dL (12.0-16.0); Lymphocytes 30 % (21-51); MDiff Complete? YES; Mean Corpuscular HGB CONC 33.9 g/dL (32.0-36.0); Mean Corpuscular Hemoglobin 29.4 pg (27.0-31.0); Mean Corpuscular Volume 86.6 fL (78.0-98.0); Mean Platelet Volume 9.1 fL (7.4-10.4); Metamyelocyte 3 % (0-0); Monocytes 2 % (0-10); Myelocyte 4 % (0-0); Neutrophil 24 % (42-75); Nucleated RBC 2 % (0); Platelet Count 73 thou/uL (130-400); Platelet Morphology Comment Appears Decreased; Polychromasia SLIGHT = 2-3 cells (100X) (0-2/hpf); RBC Distribution Width 15.6 % (11.5-14.5); Reactive Lymphocytes 3 % (0-10); Rouleaux Formation SLIGHT = 1-5 cells (100X) (None Seen); White Blood Cell (WBC) Count 8.7 thou/uL (4.8-10.8)
[2020-01-08] MEDS ORDERED: Cyclophosphamide 1 GM in Sodium Chloride 0.9% 250 ML 250 ML IVPB SCH (07:15)
[2020-01-08] MEDS ORDERED: SODIUM CHLORIDE 0.9% IVP SCH (07:15)
[2020-01-08] MEDS: Ascorbic Acid 500 mg Chewable Tablet PO SCH ×2 (08:00→18:07)
[2020-01-08] MEDS: Ferrous Sulfate 325 MG TAB PO SCH ×2 (08:00→18:07)
[2020-01-08] MEDS: predniSONE 20 MG TAB PO SCH (09:00)
[2020-01-08] MEDS: Megestrol Acetate 40 MG TAB PO SCH (09:00)
[2020-01-08 09:19] LABS: Hemoglobin 7.8 g/dL (12.0-16.0); Mean Corpuscular HGB CONC 34.2 g/dL (32.0-36.0); Mean Corpuscular Hemoglobin 29.7 pg (27.0-31.0); Mean Corpuscular Volume 86.7 fL (78.0-98.0); Platelet Count 130 thou/uL (130-400); RBC Distribution Width 15.6 % (11.5-14.5); Red Blood Cell (RBC) Count 2.62 mill/uL (4.20-5.40); White Blood Cell (WBC) Count 8.4 thou/uL (4.8-10.8)
[2020-01-08] MEDS: Albumin 25% 25 GM/100 ML BOT IVPB SCH ×2 (10:00→20:35)
[2020-01-08 11:29] LABS: Band 20 % (5-11); Eosinophils 4 % (0-10); Lymphocytes 32 % (21-51); MDiff Complete? YES; Metamyelocyte 1 % (0-0); Monocytes 1 % (0-10); Myelocyte 1 % (0-0); Neutrophil 37 % (42-75); Nucleated RBC 1 % (0); Platelet Morphology Comment Appears Adequate; Polychromasia SLIGHT = 2-3 cells (100X) (0-2/hpf); Reactive Lymphocytes 4 % (0-10); Rouleaux Formation SLIGHT = 1-5 cells (100X) (None Seen)
[2020-01-08] MEDS: Vancomycin HCl 1 GM in Premix Bag 1 BAG IVPB SCH (12:00)
--- NOTE | 2020-01-08 13:09 | PDOC.HOSPP ---
- Subjective Encounter Date: 01/08/20 Encounter Time: 08:00 Subjective: no overnight events. This morning, lying comfortably in bed. NGT in place. Administered platelet supplementation for pending lumbar puncture. Has no complaints except for those mentioned in ROS. - Objective Vital Signs & Weight: Vital Signs (12 hours) Temp Pulse Pulse Resp BP BP BP 01/08/20 12:00 98.4 F 105 H 18 161/77 H 01/08/20 08:35 98.9 F 111 H 16 106/70 01/08/20 08:00 97.3 F L 115 H 18 90/55 L 01/08/20 07:50 97.3 F L 94 16 90/55 L 01/08/20 05:10 Pulse Ox 01/08/20 12:00 96 01/08/20 08:35 98 01/08/20 08:00 99 01/08/20 07:50 99 01/08/20 05:10 93 L Weight Admit Weight 106 lb 8 oz Weight 106 lb 8 oz I&O: 01/07/20 01/08/20 01/09/20 06:59 06:59 06:59 Intake Total 660 610 250 Output Total 750 2300 Balance -90 -1690 250 Result Diagrams: 01/08/20 09:07 01/08/20 04:30 Hospitalist ROS - Review of Systems Constitutional: denies: fever, chills, sweats, weakness, malaise, other Respiratory: reports: cough, dry. denies: shortness of breath, hemoptysis, SOB with excertion, pleuritic pain, sputum, wheezing, other Cardiovascular: denies: chest pain, palpitations, orthopnea, paroxysmal noc. dyspnea, edema, light headedness, other Gastrointestinal: denies: nausea, vomiting, abdominal pain, diarrhea, constipation, melena, hematochezia, other Genitourinary: denies: hematuria Neurological: reports: weakness. denies: confusion - Medication Medications: Active Medications Generic Name Dose Route Start Last Admin Trade Name Freq PRN Reason Stop Dose Admin Acetaminophen 650 mg 01/01/20 22:51 01/06/20 16:05 Tylenol PO 650 mg Q4H PRN Administration Headache/Fever or Mild Pain Albumin Human 25 gm 01/07/20 21:00 01/08/20 10:00 Albumin 25% IVPB 01/09/20 09:00 25 gm BID LU Administration Ascorbic Acid 500 mg 01/05/20 08:00 01/07/20 17:37 Vitamin C PO 500 mg BID-WM LU Administration Ferrous Sulfate 325 mg 01/05/20 08:00 01/07/20 17:37 Feosol PO 325 mg BID-WM LU Administration Vancomycin HCl 1 gm/ Device 200 mls @ 200 mls/hr 01/07/20 11:00 01/08/20 12: 00 IVPB 200 mls 1100 LU Administration Loperamide HCl 2 mg 01/04/20 20:58 01/05/20 02:55 Imodium PO 2 mg Q6H PRN Administration Diarrhea/Loose Stools Megestrol Acetate 40 mg 01/04/20 09:00 01/07/20 10:06 Megace PO 40 mg DAILY LU Administration Melatonin 3 mg 01/02/20 20:04 01/02/20 21:46 Melatonin PO 3 mg HS PRN Administration Insomnia Prednisone 80 mg 01/08/20 08:00 01/08/20 09:00 Prednisone PO 01/12/20 08:01 80 mg QAM-WM LU Administration Saccharomyces Boulardii 250 mg 01/04/20 21:00 01/07/20 20:42 Florastor PO 250 mg 2100 LU Administration Sodium Chloride 10 ml 01/05/20 09:00 01/07/20 20:43 Flush - Normal Saline IVF 10 ml Q12HR LU Administration Temazepam 15 mg 01/03/20 17:25 01/07/20 20:42 Restoril PO 15 mg HSPRN PRN Administration Insomnia - Exam General Appearance: NAD, awake alert, ill appearing Neck: no JVD Heart: RRR, no murmur, no gallops, no rubs Respiratory: CTAB, no wheezes, no rales, no ronchi Gastrointestinal: soft, non-tender, non-distended, normal bowel sounds Gastrointestinal - other findings: nasogastric feeding tube in place Extremities: no edema Psychiatric: normal affect, normal behavior, A&O x 3 Hosp A/P - Plan #stage IV T-cell lymphoma -pending CSF cytology; Plt 130s s/p transfusion of one unit -pending chemotherapy initiation as per oncology on 01/07; will monitor for TLS once chemo started and initiate prophylaxis if deemed necessary as per oncology recs -discussed initiation of chemotherapy with family otherwise management unchanged
--- NOTE | 2020-01-08 15:21 | PDOC.MOPN ---
Interval History: LP completed. Denies pain. rapid HR noted. - Vital Signs Vital Signs: Vital Signs (12 hours) Temp Pulse Pulse Resp BP BP BP 01/08/20 12:00 98.4 F 105 H 18 161/77 H 01/08/20 08:35 98.9 F 111 H 16 106/70 01/08/20 08:00 97.3 F L 115 H 18 90/55 L 01/08/20 07:50 97.3 F L 94 16 90/55 L 01/08/20 05:10 Pulse Ox 01/08/20 12:00 96 01/08/20 08:35 98 01/08/20 08:00 99 01/08/20 07:50 99 01/08/20 05:10 93 L Weight Admit Weight 106 lb 8 oz Weight 106 lb 8 oz - Physical Exam General: Alert HEENT: Atraumatic, PERRLA, EOMI, Mucous membr. moist/pink Lungs: Clear to auscultation, Normal air movement Cardiovascular: Other (tachycardia) Abdomen: Other (peg) Extremities: No clubbing, No cyanosis, No edema, Normal pulses, No tenderness/ swelling Skin: No rashes, No breakdown, No significant lesion Neurological: Normal speech - Labs Result Diagrams: 01/08/20 09:07 01/08/20 04:30 Lab results: Laboratory Results - last 24 hr 01/08/20 09:07: WBC 8.4, RBC 2.62 L, Hgb 7.8 L, Hct 22.7 L, MCV 86.7, MCH 29.7, MCHC 34.2, RDW 15.6 H, Plt Count 130, MPV 8.0, Neutrophils % (Manual) 37 L, Band Neuts % (Manual) 20 H, Lymphocytes % (Manual) 32, Reactive Lymphs % 4, Monocytes % (Manual) 1, Eosinophils % (Manual) 4, Metamyelocytes % (Man) 1 H, Myelocytes % 1 H, Neutrophils # Not Reportable, Lymphocytes # Not Reportable, Nucleated RBCs # (Man) 1 H, Plt Morphology Comment Appears Adequate, Polychromasia SLIGHT = 2-3 cells, Rouleaux SLIGHT = 1-5 cells 01/08/20 04:30: Uric Acid 6.3 H, Phosphorus 4.3 01/08/20 04:30: Sodium 135 L, Potassium 3.5, Chloride 96 L, Carbon Dioxide 30, Anion Gap 13, BUN 6 L, Creatinine 0.81, Estimated GFR (MDRD) 69, Glucose 118 H, Calcium 9.9, Magnesium 2.0, Total Bilirubin 1.2, AST 29, ALT 15, Alkaline Phosphatase 291 H, Serum Total Protein 9.0 H, Albumin 2.5 L, Globulin 6.5 H, Albumin/Globulin Ratio 0.4 L 01/08/20 04:30: WBC 8.7, RBC 2.80 L, Hgb 8.2 L, Hct 24.3 L, MCV 86.6, MCH 29.4, MCHC 33.9, RDW 15.6 H, Plt Count 73 L, MPV 9.1, Neutrophils % (Manual) 24 L, Band Neuts % (Manual) 28 H, Lymphocytes % (Manual) 30, Reactive Lymphs % 3, Monocytes % (Manual) 2, Eosinophils % (Manual) 5, Basophils % (Manual) 1, Metamyelocytes % (Man) 3 H, Myelocytes % 4 H, Nucleated RBCs # (Man) 2 H, Plt Morphology Comment Appears Decreased L, Polychromasia SLIGHT = 2-3 cells, Rouleaux SLIGHT = 1-5 cells 01/07/20 15:53: B-Natriuretic Peptide 257.5 H 01/06/20 22:45: Blood Type O POSITIVE, Antibody Screen NEGATIVE Status: lab reviewed by me A/P - Problem (1) Lymphoma, T-cell Current Visit: Yes Code(s): C85.90 - NON-HODGKIN LYMPHOMA, UNSPECIFIED, UNSPECIFIED SITE Status: Acute - Plan Plan: Planned chemo today Rapid HR after LP. Will check EKG. No CP/SOB Sound notified.
--- NOTE | 2020-01-08 15:23 | RAD ---
Lumbar puncture with fluoroscopic guidance: 01/08/2020 HISTORY: Lymphoma, assess for BUGGYMAN disease FINDINGS: Informed consent obtained prior to the procedure. The patient was placed on the fluoroscopic table in the oblique prone position and skin overlying the lower lumbar spine was prepped and draped in normal sterile fashion. Skin at the L4 level was anesthetized with 1% buffered lidocaine. With intermittent fluoroscopic guidance, a 22-gauge spinal n eedle is advanced into the thecal sac and removal of the stylet yields clear cerebrospinal fluid. Approximately 10 cc of clear CSF was obtained and sent to the laboratory for assessment. The patient tolerated the procedure well. Exposure data: 0.4 minutes of fluoroscopic time, 73.3 mcg/sq m IMPRESSION: Successful lumbar puncture with fluoroscopic guidance as detailed above.
[2020-01-08] MEDS ORDERED: Sodium Chloride 0.9% 500 ML IV SCH ×2 (16:15)
[2020-01-08] MEDS ORDERED: Potassium Chloride 40 MEQ in Premix Bag 1 BAG IVPB SCH (17:00)
[2020-01-08] MEDS: Saccharomyces boulardii 250 MG CAP PO SCH (20:35)
[2020-01-08] MEDS: Temazepam 15 MG CAP PO PRN (20:36)
--- NOTE | 2020-01-08 22:06 | PDOC.EVN ---
Event Note - Event Note Event Note: Notified by nurse in the afternoon that the patient returned from the lumbar tap tachycardic 110s-150s. Patient feels well and denies chest pain, palpitations, or shortness of breath. EKG taken, showing sinus tachy, occasional PACs, and short periods of atrial flutter, old RBBB. Administered slow 500cc bolus and repeated EKG, which showed sinus tachy and RBBB, similar to EKG prior to procedure. Requested staff to provide patient with tamazepam since appears mildly anxious
[2020-01-09 05:55] LABS: Mean Corpuscular HGB CONC 32.8 g/dL (32.0-36.0); Mean Corpuscular Volume 88.3 fL (78.0-98.0); White Blood Cell (WBC) Count 5.4 thou/uL (4.8-10.8)
[2020-01-09 05:58] LABS: Band 22 % (5-11); Eosinophils 1 % (0-10); Lymphocytes 14 % (21-51); MDiff Complete? YES; Mean Platelet Volume 8.8 fL (7.4-10.4); Metamyelocyte 1 % (0-0); Monocytes 7 % (0-10); Myelocyte 4 % (0-0); Neutrophil 47 % (42-75); Platelet Count 76 thou/uL (130-400); Platelet Morphology Comment Appears Decreased; Reactive Lymphocytes 4 % (0-10)
[2020-01-09 06:02] LABS: ALT (SGPT) 20 U/L (8-55); AST (SGOT) 39 U/L (5-34); Albumin 3.3 g/dL (3.4-4.8); Alkaline Phosphatase 245 U/L (40-110); Anion Gap 10 mmol/L (10-20); BUN (Urea Nitrogen) 15 mg/dL (9.8-20.1); Bilirubin, Total 1.3 mg/dL (0.2-1.2); Calc. Creatinine Clearance 48 mL/min (70-130); Calcium 9.4 mg/dL (7.8-10.44); Carbon Dioxide 31 mmol/L (23-31); Chloride 99 mmol/L (98-107); Estimated GFR-MDRD 73; Globulin 5.2 g/dL (2.4-3.5); Glucose 172 mg/dL (83-110); Magnesium 2.1 mg/dL (1.6-2.6); Potassium 5.2 mmol/L (3.5-5.1); Protein, Total 8.5 g/dL (6.0-8.3); Sodium 135 mmol/L (136-145)
[2020-01-09] MEDS: Ferrous Sulfate 325 MG TAB PO SCH ×2 (08:00→18:36)
--- NOTE | 2020-01-09 08:05 | ULT ---
ULTRASOUND DOPPLER DUPLEX VENOUS BILATERAL LOWER EXTREMITIES: DATE: 01/09/2020 HISTORY: 74-year-old female with immobility and dyspnea. TECHNIQUE: Grayscale, color-flow, and spectral analysis, of major veins of bilateral lower extremities. FINDINGS: There is demonstration of blood flow with normal compressibility, of the bilateral common femoral, pr ofunda femoral, greater saphenous, femoral, popliteal, and posterior tibial, veins. There is minimal superficial soft tissue edema. There are multiple bilateral enlarged inguinal lymph nodes. IMPRESSION: 1. No deep venous thrombosis of bilateral lower extremities. 2. Bilateral inguinal lymphadenopathy. 3. Minimal superficial soft tissue edema.
[2020-01-09] MEDS: Ascorbic Acid 500 mg Chewable Tablet PO SCH ×2 (09:00→18:37)
[2020-01-09] MEDS: predniSONE 20 MG TAB PO SCH (09:00)
[2020-01-09] MEDS: Megestrol Acetate 40 MG TAB PO SCH (09:54)
[2020-01-09] MEDS: Sodium Chloride 0.9% 1,000 ML IV SCH (10:12)
[2020-01-09 10:22] LABS: Vancomycin, Trough 11.1 ug/mL
[2020-01-09] MEDS: Vancomycin HCl 1 GM in Premix Bag 1 BAG IVPB SCH (11:00)
--- NOTE | 2020-01-09 13:08 | PDOC.MOPN ---
Interval History: feels tired today. Tolerating TF - Vital Signs Vital Signs: Vital Signs (12 hours) Temp Pulse Resp BP Pulse Ox 01/09/20 11:59 98.2 F 106 H 18 137/68 98 01/09/20 07:47 97.7 F 95 16 139/68 97 01/09/20 04:00 98.7 F 97 16 131/72 100 Weight Admit Weight 106 lb 8 oz Weight 106 lb 8 oz - Physical Exam General: Alert, Oriented x3, No acute distress HEENT: Atraumatic, PERRLA, EOMI, Mucous membr. moist/pink Lungs: Clear to auscultation, Normal air movement Cardiovascular: Regular rate, Normal S1, Normal S2, No murmurs, Gallops, Rubs Abdomen: Normal bowel sounds, Soft, No tenderness, No hepatospenomegaly, No masses Extremities: No clubbing, No cyanosis, No edema, Normal pulses, No tenderness/ swelling Neurological: Normal speech Psych/Mental Status: Mental status NL - Labs Result Diagrams: 01/09/20 05:17 01/09/20 05:17 Lab results: Laboratory Results - last 24 hr 01/09/20 09:59: Vancomycin Trough 11.1 01/09/20 05:17: TSH 3rd Generation 1.0019 01/09/20 05:17: Sodium 135 L, Potassium 5.2 H, Chloride 99, Carbon Dioxide 31, Anion Gap 10, BUN 15, Creatinine 0.77, Estimated GFR (MDRD) 73, Glucose 172 H, Calcium 9.4, Magnesium 2.1, Total Bilirubin 1.3 H, AST 39 H, ALT 20, Alkaline Phosphatase 245 H, Serum Total Protein 8.5 H, Albumin 3.3 L, Globulin 5.2 H, Albumin/Globulin Ratio 0.6 L 01/09/20 05:17: WBC 5.4, RBC 2.40 L, Hgb 7.0 L, Hct 21.2 L, MCV 88.3, MCH 29.0, MCHC 32.8, RDW 16.0 H, Plt Count 76 L, MPV 8.8, Neutrophils % (Manual) 47, Band Neuts % (Manual) 22 H, Lymphocytes % (Manual) 14 L, Reactive Lymphs % 4, Monocytes % (Manual) 7, Eosinophils % (Manual) 1, Metamyelocytes % (Man) 1 H, Myelocytes % 4 H, Neutrophils # Not Reportable, Lymphocytes # Not Reportable, Plt Morphology Comment Appears Decreased L Status: lab reviewed by me A/P - Problem (1) Lymphoma, T-cell Current Visit: Yes Code(s): C85.90 - NON-HODGKIN LYMPHOMA, UNSPECIFIED, UNSPECIFIED SITE Status: Acute - Plan Plan: C1D2 CVP. Fulphila today Transfuse 1 unit PRBC today Daily CBC ok for rehab when accepted
[2020-01-09] MEDS ORDERED: PEGFILGRASTIM-JMDB 6 MG/0.6 ML SYRINGE SQ SCH (13:15)
[2020-01-09] MEDS: Vancomycin HCl 1.25 GM in Sodium Chloride 0.9% 250 ML 250 ML IVPB SCH (14:00)
[2020-01-09] MEDS: Temazepam 15 MG CAP PO PRN (20:20)
[2020-01-09] MEDS: Saccharomyces boulardii 250 MG CAP PO SCH (20:21)
--- NOTE | 2020-01-09 20:45 | PDOC.HOSPP ---
- Subjective Encounter Date: 01/09/20 Encounter Time: 09:00 Subjective: overnight, started chemo, had short episode of regular rhythm tachycardia per nurse, was sleeping at the time. This morning, feels well and has no complains except for baseline weakness. - Objective Vital Signs & Weight: Vital Signs (12 hours) Temp Pulse Pulse Resp BP BP Pulse Ox 01/09/20 18:35 98.5 F 92 16 137/65 01/09/20 18:10 98.0 F 89 16 139/77 01/09/20 16:00 97.5 F L 91 18 139/63 99 01/09/20 11:59 98.2 F 106 H 18 137/68 98 Weight Admit Weight 106 lb 8 oz Weight 106 lb 8 oz I&O: 01/08/20 01/09/20 01/10/20 06:59 06:59 06:59 Intake Total 610 1520 90 Output Total 2300 850 450 Balance -1690 670 -360 Result Diagrams: 01/09/20 05:17 01/09/20 05:17 Hospitalist ROS - Review of Systems Constitutional: denies: fever, chills, sweats, weakness, malaise, other Respiratory: denies: cough, dry, shortness of breath, hemoptysis, SOB with excertion, pleuritic pain, sputum, wheezing, other Cardiovascular: denies: chest pain, palpitations, orthopnea, paroxysmal noc. dyspnea, edema, light headedness, other Gastrointestinal: denies: nausea, vomiting, abdominal pain, diarrhea, constipation, melena, hematochezia, other Genitourinary: denies: dysuria, frequency, incontinence, hematuria, retention, other Neurological: reports: weakness - Medication Medications: Active Medications Generic Name Dose Route Start Last Admin Trade Name Freq PRN Reason Stop Dose Admin Acetaminophen 650 mg 01/01/20 22:51 01/06/20 16:05 Tylenol PO 650 mg Q4H PRN Administration Headache/Fever or Mild Pain Ascorbic Acid 500 mg 01/05/20 08:00 01/09/20 18:37 Vitamin C PO Not Given BID-[facility] Ferrous Sulfate 325 mg 01/05/20 08:00 01/09/20 18:36 Feosol PO Not Given BID-[facility] Dexamethasone Sodium Phosphate 51 mls @ 153 mls/hr 01/08/20 07:15 01/08/20 22 :39 10 mg/ Sodium Chloride IVPB 51 mls WILLCALL LU Administration Vincristine Sulfate 1.7 mg/ 51.7 mls @ 0 mls/hr 01/08/20 07:15 01/08/20 23:06 Sodium Chloride IVP 51.7 mls WILLCALL LU Administration Cyclophosphamide 1,000 mg/ 300 mls @ 400 mls/hr 01/08/20 13:00 01/08/20 23:25 Sodium Chloride IVPB 300 mls WILLCALL LU Administration Sodium Chloride 1,000 mls @ 70 mls/hr 01/09/20 07:45 01/09/20 10:12 Normal Saline 0.9% IV 1,000 mls .[id number] LU Administration Vancomycin HCl 1.25 gm/ Sodium 250 mls @ 166.667 mls/hr 01/09/20 13:00 14:00 Chloride IVPB 250 mls 1300 LU Administration Loperamide HCl 2 mg 01/04/20 20:58 01/05/20 02:55 Imodium PO 2 mg Q6H PRN Administration Diarrhea/Loose Stools Megestrol Acetate 40 mg 01/04/20 09:00 01/09/20 09:54 Megace PO 40 mg DAILY LU Administration Melatonin 3 mg 01/02/20 20:04 01/02/20 21:46 Melatonin PO 3 mg HS PRN Administration Insomnia Prednisone 80 mg 01/08/20 08:00 01/09/20 09:00 Prednisone PO 01/12/20 08:01 80 mg QAM-WM LU Administration Saccharomyces Boulardii 250 mg 01/04/20 21:00 01/09/20 20:21 Florastor PO 250 mg 2100 LU Administration Sodium Chloride 10 ml 01/05/20 09:00 01/09/20 09:00 Flush - Normal Saline IVF 10 ml Q12HR LU Administration Temazepam 15 mg 01/03/20 17:25 01/09/20 20:20 Restoril PO 15 mg HSPRN PRN Administration Insomnia - Exam General Appearance: NAD, awake alert, ill appearing General - other findings: sitting comfortably in chair Neck: no JVD Heart: RRR, no murmur, no gallops, no rubs Respiratory: CTAB, no wheezes, no rales, no ronchi, normal chest expansion Gastrointestinal: soft, non-tender, non-distended, normal bowel sounds Gastrointestinal - other findings: NGT in place, tolerating feeds Extremities: no edema Neurological: cranial nerve grossly intact Psychiatric: normal affect, normal behavior, A&O x 3 Hosp A/P - Plan #stage IV T-cell lymphoma -pending CSF cytology; Plt 130s s/p transfusion of one unit -pending chemotherapy initiation as per oncology on 01/07; will monitor for TLS once chemo started and initiate prophylaxis if deemed necessary as per oncology recs -discussed initiation of chemotherapy with family otherwise management unchanged
[2020-01-10] MEDS ORDERED: PEGFILGRASTIM-JMDB 6 MG/0.6 ML SYRINGE SQ SCH (00:30)
[2020-01-10] MEDS: Sodium Chloride 0.9% 1,000 ML IV SCH ×2 (03:29→13:45)
[2020-01-10 06:23] LABS: ALT (SGPT) 26 U/L (8-55); AST (SGOT) 31 U/L (5-34); Albumin 2.7 g/dL (3.4-4.8); Alkaline Phosphatase 228 U/L (40-110); Anion Gap 9 mmol/L (10-20); BUN (Urea Nitrogen) 25 mg/dL (9.8-20.1); Bilirubin, Total 1.1 mg/dL (0.2-1.2); Calc. Creatinine Clearance 51 mL/min (70-130); Carbon Dioxide 28 mmol/L (23-31); Chloride 102 mmol/L (98-107); Estimated GFR-MDRD 78; Globulin 5.1 g/dL (2.4-3.5); Glucose 117 mg/dL (83-110); Potassium 4.4 mmol/L (3.5-5.1); Protein, Total 7.8 g/dL (6.0-8.3); Sodium 135 mmol/L (136-145)
--- NOTE | 2020-01-10 08:11 | PDOC.MOPN ---
Interval History: pulled NGT overnight, she did not mean to she says and would not mind putting it back in. no n/v or diarrhe after chemo. no issues she is aware of. no headahces or visual changes. - Vital Signs Vital Signs: Vital Signs (12 hours) Temp Pulse Pulse Resp BP BP BP 01/10/20 08:03 01/10/20 07:51 97.8 F 101 H 18 128/61 01/10/20 04:00 98.5 F 110 H 16 132/70 01/10/20 00:00 97.6 F 124 H 16 127/68 01/09/20 21:12 97.8 F 89 16 149/69 H 01/09/20 20:20 Pulse Ox 01/10/20 08:03 98 01/10/20 07:51 98 01/10/20 04:00 95 01/10/20 00:00 96 01/09/20 21:12 99 01/09/20 20:20 99 Weight Admit Weight 106 lb 8 oz Weight 106 lb 8 oz - Physical Exam General: Alert HEENT: Atraumatic Lungs: Clear to auscultation Cardiovascular: Regular rate Abdomen: Normal bowel sounds Extremities: No edema Skin: No rashes Neurological: Normal speech - Labs Result Diagrams: 01/09/20 05:17 01/10/20 05:50 Lab results: Laboratory Results - last 24 hr 01/10/20 05:50: Sodium 135 L, Potassium 4.4, Chloride 102, Carbon Dioxide 28, Anion Gap 9 L, BUN 25 H, Creatinine 0.73, Estimated GFR (MDRD) 78, Glucose 117 H , Calcium 9.0, Total Bilirubin 1.1, AST 31, ALT 26, Alkaline Phosphatase 228 H, Serum Total Protein 7.8, Albumin 2.7 L, Globulin 5.1 H, Albumin/Globulin Ratio 0.5 L 01/09/20 15:13: Blood Type O POSITIVE, Antibody Screen NEGATIVE, Crossmatch See Detail 01/09/20 09:59: Vancomycin Trough 11.1 01/06/20 22:45: Blood Type O POSITIVE, Antibody Screen NEGATIVE, Crossmatch See Detail - Pathology Pathology: CSF cytology pending A/P - Problem (1) Somnolence, daytime Current Visit: Yes Code(s): R40.0 - SOMNOLENCE Status: Acute (2) Lymphoma, T-cell Current Visit: Yes Code(s): C85.90 - NON-HODGKIN LYMPHOMA, UNSPECIFIED, UNSPECIFIED SITE Status: Acute (3) Pancytopenia Current Visit: Yes Code(s): D61.818 - OTHER PANCYTOPENIA Status: Acute (4) Thrombocytopenia Current Visit: Yes Code(s): D69.6 - THROMBOCYTOPENIA, UNSPECIFIED Status: Acute (5) Lymphadenopathy Current Visit: No Code(s): R59.1 - GENERALIZED ENLARGED LYMPH NODES Status: Acute - Plan Plan: 1. transfuse 1 U 2. f/u path 3. discuss replacing NGT with surgery, hopefuly cont TFs 4. PT
[2020-01-10 08:14] LABS: Hemoglobin 8.3 g/dL (12.0-16.0); Mean Corpuscular Hemoglobin 29.4 pg (27.0-31.0); Mean Corpuscular Volume 89.2 fL (78.0-98.0); Mean Platelet Volume 9.6 fL (7.4-10.4); Platelet Count 51 thou/uL (130-400); RBC Distribution Width 15.2 % (11.5-14.5); Red Blood Cell (RBC) Count 2.82 mill/uL (4.20-5.40); White Blood Cell (WBC) Count 3.6 thou/uL (4.8-10.8)
[2020-01-10 08:24] LABS: Band 29 % (5-11); Eosinophils 1 % (0-10); Lymphocytes 12 % (21-51); MDiff Complete? YES; Monocytes 6 % (0-10); Neutrophil 50 % (42-75); Platelet Morphology Comment Appears Decreased; Polychromasia SLIGHT = 2-3 cells (100X) (0-2/hpf); Reactive Lymphocytes 2 % (0-10); Rouleaux Formation SLIGHT = 1-5 cells (100X) (None Seen); Vacuoles MARKED
[2020-01-10] MEDS: Megestrol Acetate 40 MG TAB PO SCH (09:20)
[2020-01-10] MEDS: Acetaminophen 325 MG TAB PO PRN (09:20)
[2020-01-10] MEDS: Ferrous Sulfate 325 MG TAB PO SCH ×2 (09:20→16:56)
[2020-01-10] MEDS: Ascorbic Acid 500 mg Chewable Tablet PO SCH ×2 (09:21→16:56)
[2020-01-10] MEDS: predniSONE 20 MG TAB PO SCH (09:21)
[2020-01-10] MEDS: Vancomycin HCl 1.25 GM in Sodium Chloride 0.9% 250 ML 250 ML IVPB SCH (13:45)
[2020-01-10] MEDS: Acetaminophen/Codeine 30-300mg Tablet PO PRN (15:34)
--- NOTE | 2020-01-10 18:45 | PDOC.HOSPP ---
- Subjective Encounter Date: 01/10/20 Encounter Time: 09:00 Subjective: overnight, pulled NGT and not willing to put back. Also pulled out nasal cannula but after notified that her oxygen level was low, agreed to put back on. Complains of generalized weakness but no other complaints. - Objective Vital Signs & Weight: Vital Signs (12 hours) Temp Pulse Resp BP Pulse Ox 01/10/20 16:30 96.9 F L 99 20 110/55 L 90 L 01/10/20 12:00 97.6 F 66 22 H 110/62 94 L 01/10/20 08:03 98 01/10/20 08:00 98 01/10/20 07:51 97.8 F 101 H 18 128/61 98 Weight Admit Weight 106 lb 8 oz Weight 106 lb 8 oz I&O: 01/09/20 01/10/20 01/11/20 06:59 06:59 06:59 Intake Total 1520 440 985 Output Total 850 950 Balance 670 -510 985 Result Diagrams: 01/10/20 05:50 01/10/20 05:50 Hospitalist ROS - Review of Systems Constitutional: denies: fever, chills, sweats, weakness, malaise, other Respiratory: denies: cough, dry, shortness of breath, hemoptysis, SOB with excertion, pleuritic pain, sputum, wheezing, other Cardiovascular: denies: chest pain, palpitations, orthopnea, paroxysmal noc. dyspnea, edema, light headedness, other Gastrointestinal: reports: nausea. denies: vomiting, abdominal pain, diarrhea, constipation, melena, hematochezia, other Neurological: reports: weakness. denies: change in speech, confusion - Medication Medications: Active Medications Generic Name Dose Route Start Last Admin Trade Name Freq PRN Reason Stop Dose Admin Acetaminophen/Codeine Phosphate 1 tab 01/10/20 15:00 01/10/20 15:34 Tylenol #3 PO 1 tab Q6H PRN Administration Pain Ascorbic Acid 500 mg 01/05/20 08:00 01/10/20 16:56 Vitamin C PO 500 mg BID-WM LU Administration Ferrous Sulfate 325 mg 01/05/20 08:00 01/10/20 16:56 Feosol PO 325 mg BID-WM LU Administration Dexamethasone Sodium Phosphate 51 mls @ 153 mls/hr 01/08/20 07:15 03/02/20 22 :39 10 mg/ Sodium Chloride IVPB 51 mls WILLCALL LU Administration Vincristine Sulfate 1.7 mg/ 51.7 mls @ 0 mls/hr 01/08/20 07:15 01/08/20 23:06 Sodium Chloride IVP 51.7 mls WILLCALL LU Administration Cyclophosphamide 1,000 mg/ 300 mls @ 400 mls/hr 01/08/20 13:00 01/08/20 23:25 Sodium Chloride IVPB 300 mls WILLCALL LU Administration Sodium Chloride 1,000 mls @ 70 mls/hr 01/09/20 07:45 01/10/20 13:45 Normal Saline 0.9% IV 1,000 mls .[id number] LU Administration Vancomycin HCl 1.25 gm/ Sodium 250 mls @ 166.667 mls/hr 01/09/20 13:00 13:45 Chloride IVPB 250 mls 1300 LU Administration Loperamide HCl 2 mg 01/04/20 20:58 01/05/20 02:55 Imodium PO 2 mg Q6H PRN Administration Diarrhea/Loose Stools Megestrol Acetate 40 mg 01/04/20 09:00 01/10/20 09:20 Megace PO 40 mg DAILY LU Administration Melatonin 3 mg 01/02/20 20:04 01/02/20 21:46 Melatonin PO 3 mg HS PRN Administration Insomnia Prednisone 80 mg 01/08/20 08:00 01/10/20 09:21 Prednisone PO 01/12/20 08:01 80 mg QAM-WM LU Administration Saccharomyces Boulardii 250 mg 01/04/20 21:00 01/09/20 20:21 Florastor PO 250 mg 2100 LU Administration Sodium Chloride 10 ml 01/05/20 09:00 01/10/20 09:22 Flush - Normal Saline IVF 10 ml Q12HR LU Administration Temazepam 15 mg 01/03/20 17:25 01/09/20 20:20 Restoril PO 15 mg HSPRN PRN Administration Insomnia - Exam General Appearance: NAD, ill appearing General - other findings: drowsy Eye: PERRL ENT: normocephalic atraumatic, no oropharyngeal lesions Neck: no JVD Heart: RRR, no murmur, no gallops, no rubs Respiratory: CTAB, no wheezes, no rales, no ronchi Gastrointestinal: soft, non-tender, non-distended, normal bowel sounds, no palpable masses Extremities: no edema Musculoskeletal: generalized weakness Psychiatric: normal behavior, A&O x 3, flat affect Hosp A/P - Plan #stage IV T-cell lymphoma -CSF cytology shows unremarkable lymphocytes; -Chemotherapy initiated. Following oncology recs -HgB 7.0 (3/); per nurse, oncology requested to hold transfusion pRBC otherwise management unchanged. Disposition pending oncology clearance
[2020-01-10] MEDS: Saccharomyces boulardii 250 MG CAP PO SCH (19:50)
[2020-01-10] MEDS: Temazepam 15 MG CAP PO PRN (20:26)
[2020-01-11 06:20] LABS: ALT (SGPT) 26 U/L (8-55); AST (SGOT) 21 U/L (5-34); Albumin 2.4 g/dL (3.4-4.8); Alkaline Phosphatase 196 U/L (40-110); Anion Gap 7 mmol/L (10-20); BUN (Urea Nitrogen) 25 mg/dL (9.8-20.1); Bilirubin, Total 1.3 mg/dL (0.2-1.2); Calc. Creatinine Clearance 54 mL/min (70-130); Calcium 8.3 mg/dL (7.8-10.44); Carbon Dioxide 29 mmol/L (23-31); Chloride 105 mmol/L (98-107); Estimated GFR-MDRD 83; Glucose 104 mg/dL (83-110); Potassium 4.1 mmol/L (3.5-5.1); Protein, Total 7.4 g/dL (6.0-8.3); Sodium 137 mmol/L (136-145)
[2020-01-11 06:36] LABS: Band 40 % (5-11); Hemoglobin 7.6 g/dL (12.0-16.0); Lymphocytes 2 % (21-51); MDiff Complete? YES; Mean Corpuscular Hemoglobin 29.2 pg (27.0-31.0); Mean Corpuscular Volume 88.6 fL (78.0-98.0); Mean Platelet Volume 9.6 fL (7.4-10.4); Metamyelocyte 1 % (0-0); Neutrophil 57 % (42-75); Platelet Count 31 thou/uL (130-400); Platelet Morphology Comment Appears Decreased; Red Blood Cell (RBC) Count 2.59 mill/uL (4.20-5.40); Vacuoles SLIGHT; White Blood Cell (WBC) Count 6.9 thou/uL (4.8-10.8)
[2020-01-11] MEDS ORDERED: predniSONE 50 MG TAB PO SCH (08:00)
--- NOTE | 2020-01-11 08:02 | PDOC.MOPN ---
Interval History: feeling a little better, walked in halls yesterday. breathing is better. still weak though - Vital Signs Vital Signs: Vital Signs (12 hours) Pulse Resp Pulse Ox 01/11/20 00:00 103 H 16 94 L Weight Admit Weight 106 lb 8 oz Weight 106 lb 8 oz - Physical Exam General: Alert, No acute distress HEENT: Atraumatic, Other (cervical LAD slightly decreased) Lungs: Clear to auscultation Cardiovascular: Regular rate Abdomen: Normal bowel sounds, Soft Extremities: No edema, Other (inguinal LAD smaller) Skin: No rashes Neurological: Normal speech - Labs Result Diagrams: 01/11/20 05:50 01/11/20 03:30 Lab results: Laboratory Results - last 24 hr 01/11/20 05:50: WBC 6.9, RBC 2.59 L, Hgb 7.6 L, Hct 23.0 L, MCV 88.6, MCH 29.2, MCHC 33.0, RDW 15.0 H, Plt Count 31 L, MPV 9.6, Neutrophils % (Manual) 57, Band Neuts % (Manual) 40 H, Lymphocytes % (Manual) 2 L, Metamyelocytes % (Man) 1 H, WBC Morphology SLIGHT, Plt Morphology Comment Appears Decreased L 01/11/20 03:30: Sodium 137, Potassium 4.1, Chloride 105, Carbon Dioxide 29, Anion Gap 7 L, BUN 25 H, Creatinine 0.69, Estimated GFR (MDRD) 83, Glucose 104, Calcium 8.3, Total Bilirubin 1.3 H, AST 21, ALT 26, Alkaline Phosphatase 196 H, Serum Total Protein 7.4, Albumin 2.4 L, Globulin 5.0 H, Albumin/Globulin Ratio 0.5 L 01/10/20 05:50: WBC 3.6 L, RBC 2.82 L, Hgb 8.3 L, Hct 25.1 L, MCV 89.2, MCH 29.4 , MCHC 33.0, RDW 15.2 H, Plt Count 51 L, MPV 9.6, Neutrophils % (Manual) 50, Band Neuts % (Manual) 29 H, Lymphocytes % (Manual) 12 L, Reactive Lymphs % 2, Monocytes % (Manual) 6, Eosinophils % (Manual) 1, Neutrophils # Not Reportable, Lymphocytes # Not Reportable, WBC Morphology MARKED H, Plt Morphology Comment Appears Decreased L, Polychromasia SLIGHT = 2-3 cells, Rouleaux SLIGHT = 1-5 cells 01/08/20 : Flow Cytometry Interp 01/03/20 14:00: Cytogenetics Report - Pathology Pathology: CSF cytology negative A/P - Problem (1) Somnolence, daytime Current Visit: No Code(s): R40.0 - SOMNOLENCE Status: Acute (2) Lymphoma, T-cell Current Visit: Yes Code(s): C85.90 - NON-HODGKIN LYMPHOMA, UNSPECIFIED, UNSPECIFIED SITE Status: Acute (3) Pancytopenia Current Visit: Yes Code(s): D61.818 - OTHER PANCYTOPENIA Status: Acute (4) Thrombocytopenia Current Visit: Yes Code(s): D69.6 - THROMBOCYTOPENIA, UNSPECIFIED Status: Acute (5) Lymphadenopathy Current Visit: No Code(s): R59.1 - GENERALIZED ENLARGED LYMPH NODES Status: Acute - Plan Plan: 1. PT/OT, rehab? 2. follow [facility], she will need to be checked 3-4 x per week in rehab to see if she needs transfusions, consider transfusion prior to d/c 3. continue prednisone for 2 more days 4. c#2 will be due on 01/29. consider escalation of chemo at that time if she is stronger, CHOP or CHOEP 5. check CD 30 on BM, would given brentuximab if she was cd30+, LN biopsy was read as "Scattered." I discussed this with Dr. Estrada, he interprets this as negative 6. f/u in clinic when she gets out of rehab
--- NOTE | 2020-01-11 08:21 | EKG ---
Test Reason : Blood Pressure : / mmHG Vent. Rate : 100 BPM Atrial Rate : 100 BPM P-R Int : 114 ms QRS Dur : 116 ms QT Int : 368 ms P-R-T Axes : 073 079 -37 degrees QTc Int : 474 ms Normal sinus rhythm Right bundle branch block Abnormal ECG When compared with ECG of 05-JAN-2020 06:51, Premature supraventricular complexes are no longer Present Confirmed by DR. Domitila HARRISON ([id number]) on 01/11/2020 8:21:23 AM Referred By: GIACOMO Confirmed By:DR. Domitila HARRISON
[2020-01-11] MEDS: Megestrol Acetate 40 MG TAB PO SCH (09:05)
[2020-01-11] MEDS: Ascorbic Acid 500 mg Chewable Tablet PO SCH ×2 (09:06→17:29)
[2020-01-11] MEDS: Ferrous Sulfate 325 MG TAB PO SCH ×2 (09:06→17:29)
[2020-01-11] MEDS: Sodium Chloride 0.9% 1,000 ML IV SCH ×2 (10:07→17:28)
[2020-01-11] MEDS: Acetaminophen/Codeine 30-300mg Tablet PO PRN ×2 (10:51→16:45)
--- NOTE | 2020-01-11 12:11 | PQF ---
CLAUDIO GRAY Joy PANDA, AUDI [id number] [id number] CLINICAL DOCUMENTATION IMPROVEMENT CLARIFICATION FORM: ICD-10 Updated PLEASE DO AN ADDENDUM TO THE PROGRESS NOTE WITH ANY DOCUMENTATION UPDATES OR ADDITIONS AND CARRY THROUGH TO DC SUMMARY. THANK YOU. DATE: 01/11/2020 ATTN: DR. Alvarado MOSQUEDA Please exercise your independent, professional judgment in responding to the clarification form. Clinical indicators are provided on the bottom of this form for your review. Please check appropriate box(s): [ x ] Acute Respiratory Failure: [ x ] with Hypoxia[ ] with Hypercapnia [ ] Acute On Chronic Respiratory Failure: [ ] with Hypoxia [ ] with Hypercapnia [ x ] Acute Respiratory Failure due to: (etiology) _progressive lung cancer [ ] Chronic Respiratory Failure only [ ] with Hypoxia [ ] with Hypercapnia [ ] Hypoxia [ ] Other diagnosis [ ] Unable to determine In addition, please specify: Present on Admission (POA): [ x ] Yes [ ] No [ ] Unable to determine For continuity of documentation, please document condition throughout progress notes and discharge summary. Thank You. CLINICAL INDICATORS - SIGNS / SYMPTOMS / LABS / RESULTS AND LOCATION IN MR 01/06 - 01/10 PULSE 111 > 115 > 145 > 124 > 103 - 01/10 O2 SATS 89%RA > 90%RA > 88%RA 01/01 CXR - IMPRESSION: EMPHYSEMA, THERE IS HYPERINFLATION OF THE LUNGS CONSISTENT WITH COPD. 01/05 PN (FICKLEN) SHE APPARENTLY HAD SOME REPORTS OF SHORTNESS OF BREATH THIS MORNING AND AN EKG WAS PERFORMED WHICH SHOWED SOME SINUS TACH WITH PVC'S. IMPRESSION/PLAN: 2). DYSPNEA, APPEARS TO BE RELATIVELY MILD AND MORE CHRONIC. WE WILL CHECK AN ABG AND ENSURE THAT SHE IS NOT RETAINING SOME CO2. WE WILL ALSO CHECK AN AMMONIA LEVEL. RISK: RECENT DX OF T-CELL LYMPHOMA , HX TOBACCO ABUSE, ADVANCED AGE 74 (H&P/LADHA) TREATMENTS: SUPPLEMENTAL OXYGEN ( 01/05-PRESENT) ABG (01/05) CXR (01/01) Acute Respiratory Failure: ABG pH < 7.35 or > 7.45; Decreased oxygen saturation (<90% room air or < 95% on oxygen); PCO2 > 50 mm Hg; PO2 < 60 mm Hg; Labored or rapid respirations ARDS: Dx Criteria [[place] ARDS]: Respiratory symptoms within one week of a known clinical insult (e.g. shock, infection, surgery, trauma) Bilateral opacities in CXR/Chest CT not due to CHF or fluid THANK YOU! MARCELLE (This form is maintained as a part of the permanent medical record) 2014 [employer]. All Rights Reserved [email or web address] [phone] MTDD
[2020-01-11 15:17] LABS: Vancomycin, Trough 13.9 ug/mL
[2020-01-11] MEDS: Vancomycin HCl 1.25 GM in Sodium Chloride 0.9% 250 ML 250 ML IVPB SCH (15:44)
[2020-01-11 16:23] VITALS: BP 135/66; TEMP 98.2
--- NOTE | 2020-01-12 10:33 | PQF ---
CLAUDIO GRAY, AUDI [id number] ONC-[id number] CLINICAL DOCUMENTATION CLARIFICATION FORM: POST DISCHARGE Addendum to original discharge summary date: ____ Late entry note date: __ DATE:01/12/2020 ATTN:AUDI MOSQUEDA Please exercise your independent, professional judgment in responding to the clarification form. Clinical indicators are provided on the bottom of this form for your review Please check appropriate box(s) to clarify if the following diagnosis has been ruled in or ruled out: Sepsis [ ] Ruled in diagnosis [ ] Continue to treat [ ] Resolved [ x] Ruled out diagnosis [ ] Cannot rule out diagnosis [ ] Other diagnosis [ ] Unable to determine For continuity of documentation, please document condition throughout progress notes and discharge summary. Thank You. CLINICAL INDICATORS - SIGNS / SYMPTOMS / LABS A sepsis alert was activated due to patient meeting the activation requirements instep A and step B-Documented in ED on 01/01 by Nisha Godinez MD [id number] in ED on 01/01 by Nisha Godinez MD [id number] in ED on 01/01 by Nisha Godinez MD Weakness-Documented in ED on 01/01 by Nisha Godinez MD Sepsis-Documented in ED on 01/01 by Nisha Godinez MD WBC-11.1-Documented in H&P on 01/01 by Isidoro Quevedo MD Questionable sepsis -Documented in H&P on 01/01 by Isidoro Quevedo MD Acute respiratory failure -Documented in query response-on 01/10 RISK FACTORS Weakness-Documented in ED on 01/01 by Nisha Godinez MD Sepsis-Documented in ED on 01/01 by Nisha Godinez MD TREATMENTS She received vancomycin and zosyn with IV fluids in the ER-Documented in H&P on 01/01 by Isidoro Quevedo MD Culture have been sent-Documented in H&P on 01/01 by Isidoro Quevedo MD Continue antibiotics for now-Documented in H&P on 01/01 by Isidoro Quevedo MD [employer] 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 All Rights Reserved Maria [email or web address] [phone] MTDGiulia
--- NOTE | 2020-01-12 10:46 | DIS ---
DATE OF ADMISSION: 01/01/2020 DATE OF DISCHARGE: 01/11/2020 Ms. 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 The Oncology Team was consulted and the patient was started on chemotherapy, during which the patient was feeling well except for occasional episodes of nausea and sinus tachycardia. The patient required transfusion of a total of 2 PRBCs due to symptomatic anemia as well. The patient also received a lumbar puncture to determine if there was SPRAYER OPERATOR involvement, which based on the pathology report, there was not. She was discharged hemodynamically stable, but requiring oxygen supplementation with nasal cannula to inpatient rehab. She will be followed up as outpatient by the Oncology Team. Job ID: [id number]
--- NOTE | 2020-01-13 18:08 | EKG ---
Test Reason : Blood Pressure : / mmHG Vent. Rate : 106 BPM Atrial Rate : 106 BPM P-R Int : 112 ms QRS Dur : 114 ms QT Int : 360 ms P-R-T Axes : 072 078 003 degrees QTc Int : 478 ms Sinus tachycardia with Premature atrial complexes Left atrial enlargement Right bundle branch block T wave abnormality, consider inferior ischemia Abnormal ECG Confirmed by JEREMIAH ROCKWELL, ERIN Madrigal ([id number]), editor news PEPE LAWSON ([id number]) on 01/13/2020 6:08:18 PM Referred By: Confirmed By:ERIN DANIELS MD
== END 2020-01-11 17:40 | DRG 840 ==
LOC: ERS 16:18 → EEVIPCON 19:54 → ONC 19:54
PROVIDERS: ADMIT Internal Medicine; ATTEND Internal Medicine
PROC: 30233N1 Transfusion of Nonautologous Red Blood Cells into Peripheral Vein, Percutaneous Approach (ICD-10-PCS; principal; 2020-01-01)
PROC: 0JH63XZ Insertion of Tunneled Vascular Access Device into Chest Subcutaneous Tissue and Fascia, Percutaneous Approach (ICD-10-PCS; 2020-01-04)
PROC: 02HV33Z Insertion of Infusion Device into Superior Vena Cava, Percutaneous Approach (ICD-10-PCS; 2020-01-04)
PROC: 07DR3ZX Extraction of Iliac Bone Marrow, Percutaneous Approach, Diagnostic (ICD-10-PCS; 2020-01-04)
PROC: 009U3ZX Drainage of Spinal Canal, Percutaneous Approach, Diagnostic (ICD-10-PCS; 2020-01-08)
PROC: 3E04305 Introduction of Other Antineoplastic into Central Vein, Percutaneous Approach (ICD-10-PCS; 2020-01-10)
DX: C84.45 Peripheral T-cell lymphoma, not elsewhere classified, lymph nodes of inguinal region and lower limb (principal); J96.00 Acute respiratory failure, unspecified whether with hypoxia or hypercapnia; G93.41 Metabolic encephalopathy; D61.818 Other pancytopenia; E87.1 Hypo-osmolality and hyponatremia; E44.0 Moderate protein-calorie malnutrition; I48.92 Unspecified atrial flutter; D64.9 Anemia, unspecified; E86.0 Dehydration; Z68.20 Body mass index [BMI] 20.0-20.9, adult; E78.5 Hyperlipidemia, unspecified; I73.9 Peripheral vascular disease, unspecified; D69.6 Thrombocytopenia, unspecified; E87.6 Hypokalemia; E83.42 Hypomagnesemia; R59.1 Generalized enlarged lymph nodes
CPT/HCPCS: 20225; 36415; 36430; 62270; 70491; 71045; 71260; 74018; 74177; 76705; 77012; 80048; 80053; 80202; 81003; 82140; 82274; 82805; 83605; 83615; 83690; 83735; 83880; 84100; 84132; 84443; 84484; 84550; 85007; 85025; 85027; 85046; 85097; 85610; 85730; 86850; 86900; 86901; 87040; 87086; 87804; 88112; 88184; 88237; 88264; 88280; 88305; 88311; 88313; 88341; 88342; 88360; 93005; 93010; 93970; 96361; 96365; 96366; 96375; C1788; C9113; J1100; J1642; J1940; J2250; J2469; J2543; J2704; J3010; J3370; J3430; J3475; J3480; J3490; J7050; J7512; J9070; J9370; P9016; P9035; P9045; P9047; Q5108; Q9967; S0020; S0179

== ENCOUNTER 2020-01-17 11:13 | Inpatient (IN) | payer MEDICAID, MEDICARE ==
[2020-01-17 11:56] LABS: Hemoglobin 7.7 g/dL (12.0-16.0); Mean Corpuscular Hemoglobin 30.3 pg (27.0-31.0); Mean Corpuscular Volume 89.1 fL (78.0-98.0); Mean Platelet Volume 9.6 fL (7.4-10.4); Platelet Count 66 thou/uL (130-400); RBC Distribution Width 14.9 % (11.5-14.5); Red Blood Cell (RBC) Count 2.55 mill/uL (4.20-5.40); White Blood Cell (WBC) Count 8.1 thou/uL (4.8-10.8)
[2020-01-17] MEDS ORDERED: Cefepime 2 GM VIAL ONE (12:01)
[2020-01-17 12:18] LABS: Band 39 % (5-11); Eosinophils 1 % (0-10); Hypochromia SLIGHT = 6-15 cells (100X) (0-5/hpf); Lymphocytes 6 % (21-51); MDiff Complete? YES; Metamyelocyte 2 % (0-0); Monocytes 8 % (0-10); Myelocyte 1 % (0-0); Neutrophil 43 % (42-75); Nucleated RBC 2 % (0); Platelet Morphology Comment Appears Decreased; Polychromasia MODERATE = 3-4 cells (100X) (0-2/hpf)
[2020-01-17] MEDS ORDERED: Metoprolol Tartrate 5 MG/5 ML VIAL ONE ×2 (12:26→17:39)
[2020-01-17 12:28] LABS: ALT (SGPT) 53 U/L (8-55); AST (SGOT) 14 U/L (5-34); Albumin 2.2 g/dL (3.4-4.8); Alkaline Phosphatase 155 U/L (40-110); Anion Gap 11 mmol/L (10-20); BUN (Urea Nitrogen) 24 mg/dL (9.8-20.1); Bilirubin, Total 1.2 mg/dL (0.2-1.2); Calc. Creatinine Clearance 0 mL/min (70-130); Calcium 7.3 mg/dL (7.8-10.44); Carbon Dioxide 27 mmol/L (23-31); Chloride 101 mmol/L (98-107); Estimated GFR-MDRD 90; Globulin 3.9 g/dL (2.4-3.5); Glucose 100 mg/dL (83-110); Lipase 31 U/L (8-78); Magnesium 1.8 mg/dL (1.6-2.6); Potassium 3.6 mmol/L (3.5-5.1); Protein, Total 6.1 g/dL (6.0-8.3); Sodium 135 mmol/L (136-145)
[2020-01-17] MEDS ORDERED: Vancomycin HCl 750 MG in Sodium Chloride 0.9% 250 ML 250 ML IVPB SCH (12:45)
--- NOTE | 2020-01-17 13:00 | RAD ---
RADIOGRAPH CHEST 1 VIEW: Date: 01/17/2020 Time: 1147 HOURS HISTORY: 74-year-old female with lymphoma and cardiac palpitations. Fever. COMPARISON: 01/04/2020. FINDINGS: Blunting of bilateral lateral costophrenic angles, new. Left subclavian implantable vascular access p ort remains, with distal tip at SVC/right atrial junction. No cardiomegaly. No consolidation or pulmo nary edema. No pneumothorax. IMPRESSION: New small bilateral pleural effusions. JN [] POS: CET
[2020-01-17] MEDS ORDERED: Digoxin 0.5 MG/2 ML AMP ONE (13:09)
[2020-01-17 13:11] LABS: Bilirubin Negative (Negative); Blood, Urine Negative (Negative); Clarity Clear (Clear); Glucose, Urine (Dipstick) Normal (Negative); Leukocyte Negative Leu/uL (Negative); Nitrite Negative (Negative); Protein, Urine (Dipstick) 10 mg/dL (Neg-Trace); Urobilinogen Normal mg/dL (Less than 2)
[2020-01-17 13:36] LABS: INR-International Normal Ratio 1.3; Prothrombin Time 16.1 SEC (12.0-14.7)
[2020-01-17] MEDS ORDERED: Loperamide HCl 2 MG CAP PO PRN (13:55)
[2020-01-17] MEDS ORDERED: Acetaminophen 650 MG Suppository PR PRN (13:55)
[2020-01-17] MEDS ORDERED: Senokot S 8.6-50 MG TAB PO PRN (13:55)
[2020-01-17] MEDS ORDERED: Calcium Carbonate 500 MG ChewTAB PO PRN (13:55)
[2020-01-17] MEDS ORDERED: NS 0.9% w/ 20 MEQ KCL 1,000 ML/1,000 ML BAG IV SCH (14:00)
[2020-01-17] MEDS ORDERED: hydrOXYzine 25 MG TAB ONE ×2 (15:08→15:09)
[2020-01-17] MEDS ORDERED: Metoprolol Tartrate 5 MG/5 ML VIAL IVP PRN (15:11)
[2020-01-17] MEDS ORDERED: Iopamidol-370 76% 500 ML 1 ML ONE (15:25)
[2020-01-17 15:30] LABS: Troponin I 0.022 ng/mL (< 0.028)
--- NOTE | 2020-01-17 16:03 | CT ---
CTA Angio Chest W WO Con History: Dizziness Comparison: CT examination January 02, 2020 Findings: CT angiogram of the chest performed after the intravenous administration of contrast. 3-D r endering provided. No proximal segmental pulmonary arterial filling defect. There is occlusion of the left subclavian ar eliezer. There is nondependent gas at the left brachiocephalic vein. The right axillary adenopathy left axillary adenopathy. Be slightly improved. Large right and small l eft layering pleural effusion. Abnormal circumferential hyperenhancement of the soft tissues as esophagitis. Mild third spacing of f luid. No acute displaced rib fracture. Pulmonary emphysema. Mild bronchial wall thickening lower lobes. Impression: 1. No proximal segmental pulmonary arterial filling defect. 2. Large right and moderate left pleural effusion. 3. Mild pulmonary edema and right lower lobe bronchitis. 4. 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 5. Similar axillary adenopathy.
[2020-01-17 16:15] LABS: Actual Bicarbonate (HCO3a) 25.1 mEq/L (22-28); Analyzer IN Cardio ER; Base Excess (BEa) 0.5 mEq/L (-2.0 to +3.0); CO2 Tension 40.4 mmHg (35.0-45.0); Calcium, Ionized 1.06 mmol/L (1.12-1.30); Carboxyhemoglobin (COHb) 1.1 gm% (0.0-3.0); Hemoglobin (Hb) 8.6 g/dL (12.0-16.0); O2 Tension (PaO2) 100.9 mmHg (> 70.0); pH, Arterial 7.41 (7.35-7.45)
[2020-01-17 16:17] LABS: Puncture Site RRA
--- NOTE | 2020-01-17 20:11 | HP ---
CHIEF COMPLAINT: Shortness of breath. HISTORY OF PRESENT ILLNESS: A 74-year-old female with a history of T-cell lymphoma, undergoing chemo and the last chemo on January [address] Alvarez, presenting with weakness and cough and heart racing sensation and low blood pressure of 60/54. She is undergoing rehab. She is transferred from there. Sepsis protocol activated. In the ER, x-ray showed bilateral pleural effusion as well as infiltrate. Her heart rate is initially 170 and with Cardizem, it seems to be responding, it is coming down. Initially, her heart rate was in the 170s range. The patient received vancomycin and cefepime as well as sepsis protocol with hydration of 30 mL/kg. The patient also has anemia with a hemoglobin of 7.7 without any active bleed. She will be getting 2 units of packed RBC transfusion. During my exam, the patient's family at bedside. She does not appear toxic. She was recently discharged on January 10. During that time also, she had 2 units of RBCs transfused. She had a lumbar puncture at that time and no abnormality noted. Since then, she is undergoing rehab. REVIEW OF SYSTEMS: Fever, chills, and cough. No chest pain. No nausea, vomiting, abdominal pain, constipation, diarrhea, hematuria, dysuria, or hematochezia. Rest of the review of systems are negative. ALLERGIES: SHE HAS NO KNOWN DRUG ALLERGY. PAST MEDICAL HISTORY: 1. T-cell lymphoma, getting chemo. 2. Hyperlipidemia. 3. Peripheral vascular disease. 4. Recent UTI. PAST SURGICAL HISTORY: Lymph node biopsy, femoral stent placement. MEDICATIONS: 1. Prednisone 100 mg. 2. Restoril 15 mg. 3. Megace 40 mg daily. 4. Ferrous sulfate. 5. Calcium carbonate. 6. Aspirin 81 mg daily. 7. Vitamin C. PHYSICAL EXAMINATION: VITAL SIGNS: She is currently afebrile. Blood pressure seems to be improving. Her heart rate in the monitor is in the 90s. GENERAL: She is alert and oriented. She has left-sided chemo port. CARDIOVASCULAR: She has irregular rhythm, but regular rate. I did not appreciate any murmurs. LUNGS: Sounds anterior to auscultation. No wheezing, rales, or rhonchi. Good aeration bilaterally. There is mild inspiratory wheezing appreciated. ABDOMEN: Soft, nontender, and nondistended. Good bowel sounds. EXTREMITIES: Without any pitting edema or rash. LABORATORY DATA: Hemoglobin 7.7 and platelet is 66,000. Electrolyte panel seems to be in the normal range. Her troponin 0.01. IMPRESSION AND PLAN: This is a 74-year-old female undergoing rehab, presenting with some new small bilateral pleural effusion and bilateral opacities at the costophrenic angles. This is a 74-year-old female with a history of T-cell lymphoma, undergoing chemo , presenting with the following; 1. Healthcare-associated pneumonia. 2. New onset atrial fibrillation. 3. Acute blood loss anemia, requiring transfusion, probably chemo induced as well as sepsis related. 4. Sepsis secondary to healthcare-associated pneumonia. 5. Hypertension. 6. Tobacco abuse. The patient will be monitored in the medical floor. I will get TSH, 2D echo. I believe that her atrial fibrillation is probably triggered by sepsis with pneumonia. Currently 80s, converted to sinus rhythm. We will also consult Cardiology for further recommendations. She has anemia as well as thrombocytopenia, probably chemo induced. She requires ER scheduled to get 2 unit transfusion. We will follow with the CBC. Currently her rate seems to be control and she is in sinus rhythm. EKG showed right bundle-branch block with a rate of 96 beats per minute. We will give her low-dose Cardizem and if needed, we will titrate the dose based on her heart rate. Deep venous thrombosis prophylaxis. We will put her on Lovenox 40 mg daily. Her creatinine is 0.64. Job ID: [id number] MTDD
[2020-01-17] MEDS: guaiFENesin 200 MG TAB PO SCH ×2 (20:26→20:45)
[2020-01-17] MEDS: Ferrous Sulfate 325 MG TAB PO SCH (20:45)
[2020-01-18] MEDS: Cefepime 1 GM in Sodium Chloride 0.9% 100 ML IVPB SCH ×2 (01:06→12:08)
[2020-01-18] MEDS: guaiFENesin 200 MG TAB PO SCH ×6 (01:07→22:06)
[2020-01-18] MEDS: Vancomycin 1 GM in Premix Bag 1 BAG IVPB SCH ×2 (01:07→13:44)
[2020-01-18] MEDS ORDERED: Acetaminophen 325 MG TAB PO PRN (01:53)
--- NOTE | 2020-01-18 02:32 | PDOC.EVN ---
Event Note - Event Note Event Note: Nurse reports patient LE swelling has increased since beginning of shift. RR 20s , sp02 stable and unchanged since admission. SBP low 100s, stable since admission. New onset afib, rate controlled, on po cardizem. Patient received 2L NS in ER per nursing and currently has IVF running at 75mls/hr with 20 mEQ potassium. Stopped IVF, gave 20mEq potassium. Patient has not received 2 PRBCs that were ordered, so nursing to start infusing now. Will get stat CMP and CBC prior to infusion. Discussed case with Dr. Xiong.
[2020-01-18 03:14] LABS: Hemoglobin 6.7 g/dL (12.0-16.0); Mean Corpuscular HGB CONC 34.1 g/dL (32.0-36.0); Mean Corpuscular Volume 87.9 fL (78.0-98.0); Mean Platelet Volume 9.6 fL (7.4-10.4); Platelet Count 65 thou/uL (130-400); RBC Distribution Width 14.9 % (11.5-14.5); Red Blood Cell (RBC) Count 2.23 mill/uL (4.20-5.40); White Blood Cell (WBC) Count 8.4 thou/uL (4.8-10.8)
[2020-01-18 03:25] LABS: ALT (SGPT) 38 U/L (8-55); AST (SGOT) 14 U/L (5-34); Albumin 1.9 g/dL (3.4-4.8); Alkaline Phosphatase 129 U/L (40-110); Anion Gap 12 mmol/L (10-20); BUN (Urea Nitrogen) 27 mg/dL (9.8-20.1); Calc. Creatinine Clearance 60 mL/min (70-130); Calcium 6.6 mg/dL (7.8-10.44); Carbon Dioxide 22 mmol/L (23-31); Chloride 104 mmol/L (98-107); Estimated GFR-MDRD 74; Globulin 3.6 g/dL (2.4-3.5); Glucose 130 mg/dL (83-110); Potassium 5.1 mmol/L (3.5-5.1); Protein, Total 5.5 g/dL (6.0-8.3); Sodium 133 mmol/L (136-145)
[2020-01-18 03:29] LABS: Band 31 % (5-11); Lymphocytes 1 % (21-51); MDiff Complete? YES; Monocytes 4 % (0-10); Neutrophil 64 % (42-75); Nucleated RBC 6 % (0); Platelet Morphology Comment Appears Decreased
[2020-01-18] MEDS: Furosemide 20 MG/2 ML VIAL SLOW IVP PRN ×2 (05:54→06:53)
[2020-01-18] MEDS ORDERED: predniSONE 50 MG TAB PO SCH (08:00)
[2020-01-18] MEDS ORDERED: Furosemide 40 MG/4 ML VIAL SLOW IVP SCH (09:00)
[2020-01-18] MEDS ORDERED: Albumin 25% 25 GM/100 ML BOT IVPB SCH ×2 (09:00→22:00)
--- NOTE | 2020-01-18 09:39 | RAD ---
XR Abdomen 1 View/KUB History: Feeding tube placement Comparison: Radiograph 01/07/2020 Findings: Weighted feeding tube is in place with tip projecting of the gastric body. Vascular stents project of the iliac vessels. Small effusions. Mildly distended loops of bowel without overt dilatation. There appears to be a central venous cathet er in place with tip projecting over the right atrium. Impression: Weighted feeding tube tip projects over the gastric body.
[2020-01-18 09:53] LABS: Hemoglobin 10.9 g/dL (12.0-16.0); Mean Corpuscular HGB CONC 33.5 g/dL (32.0-36.0); Mean Corpuscular Hemoglobin 29.8 pg (27.0-31.0); Mean Platelet Volume 9.5 fL (7.4-10.4); Platelet Count 54 thou/uL (130-400); RBC Distribution Width 15.3 % (11.5-14.5); Red Blood Cell (RBC) Count 3.64 mill/uL (4.20-5.40); White Blood Cell (WBC) Count 10.1 thou/uL (4.8-10.8)
[2020-01-18 10:11] LABS: Band 50 % (5-11); Dohle Bodies SLIGHT; Lymphocytes 2 % (21-51); MDiff Complete? YES; Metamyelocyte 3 % (0-0); Monocytes 8 % (0-10); Neutrophil 37 % (42-75); Platelet Morphology Comment Appears Decreased; Polychromasia SLIGHT = 2-3 cells (100X) (0-2/hpf); Vacuoles SLIGHT
[2020-01-18] MEDS: Aspirin 81 mg Enteric Coated Tablet PO SCH (10:22)
[2020-01-18] MEDS: Enoxaparin Sodium 40 MG/0.4 ML SYRINGE SC SCH (10:22)
[2020-01-18] MEDS: Ferrous Sulfate 325 MG TAB PO SCH ×2 (10:22→18:21)
[2020-01-18] MEDS: Megestrol Acetate 40 MG TAB PO SCH (10:23)
[2020-01-18] MEDS: Lorazepam 1 MG TAB PO PRN (14:31)
--- NOTE | 2020-01-18 16:46 | PDOC.HOSPP ---
- Subjective Encounter Date: 01/18/20 Encounter Time: 10:12 Subjective: feels not good. s/p peg - sux s/off. onc visit pending. pt looks fatigued, very depressed. - Objective Vital Signs & Weight: Vital Signs (12 hours) Temp Pulse Resp Pulse Ox 01/18/20 16:24 99.2 F 01/18/20 14:23 109 H 20 100 01/18/20 11:26 113 H 19 99 01/18/20 11:22 98.7 F 01/18/20 08:40 98.3 F 01/18/20 08:00 99 01/18/20 07:58 99 01/18/20 07:56 101 H 22 H 99 01/18/20 07:32 98.8 F Weight Admit Weight 130 lb 4.691 oz Weight 130 lb 4.691 oz Most Recent Monitor Data Heart Rate from ECG 104 NIBP 111/76 NIBP BP-Mean 87 Respiration from ECG 24 SpO2 98 I&O: 01/17/20 01/18/20 01/19/20 06:59 06:59 06:59 Intake Total 350 1100 Balance 350 1100 Result Diagrams: 01/18/20 15:55 01/18/20 02:47 Hospitalist ROS - Medication Medications: Active Medications Generic Name Dose Route Start Last Admin Trade Name Freq PRN Reason Stop Dose Admin Acetaminophen 650 mg 01/18/20 01:53 01/18/20 02:17 Tylenol PO 650 mg Q4H PRN Administration Headache/Fever/Mild Pain (1-3) Albuterol/Ipratropium 3 ml 01/17/20 15:00 01/18/20 14:23 Duoneb NEB 3 ml [id number] LU Administration Aspirin 81 mg 01/18/20 09:00 01/18/20 10:22 Ecotrin PO 81 mg DAILY LU Administration Diltiazem HCl 30 mg 01/17/20 17:00 01/18/20 12:02 Cardizem PO 30 mg QID LU Administration Enoxaparin Sodium 40 mg 01/18/20 09:00 01/18/20 10:22 Lovenox SC 40 mg 0900 LU Administration Ferrous Sulfate 325 mg 01/17/20 17:00 01/18/20 10:22 Feosol PO 325 mg BID- LU Administration Guaifenesin 200 mg 01/17/20 17:00 01/18/20 12:02 Organ-I Nr PO 01/19/20 17:01 200 mg Q4HR LU Administration Cefepime HCl 1 gm/ Sodium 100 mls @ 200 mls/hr 01/17/20 23:59 01/18/20 12:08 Chloride IVPB 100 mls 1200,2359 LU Administration Vancomycin HCl 1 gm/ Device 200 mls @ 200 mls/hr 01/18/20 01:00 01/18/20 13: 44 IVPB 200 mls 0100,1300 LU Administration Lorazepam 1 mg 01/18/20 13:12 01/18/20 14:31 Ativan PO 1 mg Q8H PRN Administration Anxiety/Agitation Megestrol Acetate 40 mg 01/18/20 09:00 01/18/20 10:23 Megace PO 40 mg DAILY LU Administration Potassium Chloride 20 meq 01/18/20 02:00 01/18/20 02:16 Klor-Con PO 01/19/20 04:00 20 meq NOW LU Administration Prednisone 100 mg 01/18/20 08:00 01/18/20 10:23 Prednisone PO 100 mg QAM-WM LU Administration - Exam General Appearance: NAD Eye: PERRL ENT: normocephalic atraumatic Neck: supple Heart: RRR Respiratory: CTAB Gastrointestinal: soft, no palpable masses Hosp A/P - Plan HCAP -bl bjorn neg -flu neg =-vanc +cefepime T cell lymphoma -per Dr. Alvarez overall poor prognosis d/w w.. family, reg.. palliative options.
--- NOTE | 2020-01-18 20:48 | CON ---
DATE OF CONSULTATION: 01/18/2020 REASON FOR CONSULTATION: Atrial arrhythmias. [employer]: Khanh White MD. HISTORY OF PRESENT ILLNESS: Ms. Lopes is a 74-year-old woman with history of T-cell lymphoma who has been undergoing chemotherapy. She was admitted with a lot of symptoms of failure to thrive, difficulty eating, poor oral intake, was found to have atrial arrhythmias while she is here. The patient is very sleepy, hard to arouse now, but she does not report any chest pain or pressure. PHYSICAL EXAMINATION: VITAL SIGNS: Her blood pressure is in the 90s systolic; pulse is 100-110, it is irregular, it is atrial fibrillation. LUNGS: Clear. CARDIAC: Irregularly irregular. ABDOMEN: Soft, nontender. EXTREMITIES: Warm, dry. No clubbing or cyanosis. There is no edema. IMAGING STUDIES: EKG as outlined above. Echocardiogram done by Dr. White, ejection fraction 60% to 65%. LABORATORY DATA: Hemoglobin is down to 6.7. She has received transfusions. Her hemoglobin is up to 10. ASSESSMENT: 1. Atrial arrhythmias including atrial fibrillation, then possible some atrial tachycardia. 2. Relatively low blood pressure. PLAN: 1. She is receiving fluid. 2. Receiving antibiotics. 3. She is on diltiazem. 4. Low-dose enoxaparin. Plan to continue the same for now. 5. Agree with stopping furosemide, probably volume depleted. 6. I will recheck tomorrow and I think probably the goal will be rate control at the present time, probably cannot be anticoagulated with recurrent anemia. I will reassess tomorrow. Job ID: [id number]
[2020-01-18] MEDS ORDERED: Ipratropium Bromide 2.5 ml Neb NEB SCH (22:00)
[2020-01-18] MEDS ORDERED: Sodium Chloride 0.9% 500 ML IV SCH (22:00)
[2020-01-18 22:19] LABS: Hemoglobin 10.1 g/dL (12.0-16.0); Mean Corpuscular Volume 88.2 fL (78.0-98.0); Mean Platelet Volume 9.3 fL (7.4-10.4); Platelet Count 53 thou/uL (130-400); RBC Distribution Width 15.6 % (11.5-14.5); Red Blood Cell (RBC) Count 3.36 mill/uL (4.20-5.40); White Blood Cell (WBC) Count 9.5 thou/uL (4.8-10.8)
[2020-01-18 22:35] LABS: Lactic Acid 2.5 mmol/L (0.5-2.2)
[2020-01-18 22:38] LABS: Anion Gap 13 mmol/L (10-20); BUN (Urea Nitrogen) 29 mg/dL (9.8-20.1); Calc. Creatinine Clearance 50 mL/min (70-130); Calcium 6.8 mg/dL (7.8-10.44); Carbon Dioxide 23 mmol/L (23-31); Chloride 98 mmol/L (98-107); Estimated GFR-MDRD 60; Glucose 169 mg/dL (83-110); Potassium 3.9 mmol/L (3.5-5.1); Sodium 130 mmol/L (136-145)
[2020-01-18 22:40] LABS: Band 48 % (5-11); Dohle Bodies SLIGHT; MDiff Complete? YES; Metamyelocyte 3 % (0-0); Myelocyte 1 % (0-0); Neutrophil 48 % (42-75); Platelet Morphology Comment Appears Decreased; Toxic Granulation SLIGHT
[2020-01-18 22:47] LABS: Actual Bicarbonate (HCO3a) 18.9 mEq/L (22-28); Base Excess (BEa) -4.8 mEq/L (-2.0 to +3.0); CO2 Tension 30.3 mmHg (35.0-45.0); Calcium, Ionized 0.98 mmol/L (1.12-1.30); Carboxyhemoglobin (COHb) 1.2 gm% (0.0-3.0); Hemoglobin (Hb) 9.9 g/dL (12.0-16.0); Potassium - ABG Lab 3.76 mmol/L (3.70-5.30); pH, Arterial 7.41 (7.35-7.45)
[2020-01-18 22:53] LABS: O2 Tension (PaO2) 49.1 mmHg (> 70.0)
[2020-01-18 22:54] LABS: Puncture Site RRA
[2020-01-18 22:58] LABS: ALV-art Gradient 112.665 (0-20)
[2020-01-19] MEDS ORDERED: Sodium Chloride 0.9% 500 ML IV SCH (00:15)
[2020-01-19] MEDS: Cefepime 1 GM in Sodium Chloride 0.9% 100 ML IVPB SCH ×2 (00:21→13:33)
[2020-01-19] MEDS: guaiFENesin 200 MG TAB PO SCH ×5 (00:23→16:45)
[2020-01-19] MEDS: Vancomycin 1 GM in Premix Bag 1 BAG IVPB SCH ×2 (00:24→15:03)
[2020-01-19] MEDS: Sodium Chloride 0.9% 1,000 ML IV SCH ×2 (00:58→19:35)
--- NOTE | 2020-01-19 02:59 | CON ---
DATE OF CONSULTATION: REASON FOR CONSULTATION: Peripheral T-cell lymphoma. HISTORY OF PRESENT ILLNESS: The patient is 74 years old female who was given chemotherapy with Cytoxan, vincristine and prednisone on January 08, 2020. She was admitted on January 16 with shortness of breath and admitted through emergency room. In the ER, she was found to be tachycardic and hypotensive with blood pressure of 60/54. Chest x-ray showed bilateral pleural effusion and infiltrate. She was felt to be septic and was resuscitated with red blood cell transfusion, IV fluid and was started on vancomycin and cefepime. Currently she is on vancomycin and aztreonam. The patient feels better, but still complains of being weak and has her usual level of anxiety. At home, she did not have chills or fever. PHYSICAL EXAMINATION: GENERAL: The patient is alert and oriented. VITAL SIGNS: The maximum temperature today is 100.2, blood pressure 71/48, heart rate 99. CHEST: Clear to percussion and auscultation. HEART: S1, S2. ABDOMEN: Soft without hepatosplenomegaly. EXTREMITIES: Without pedal edema. LABORATORY DATA: CBC shows WBC 10.1, hemoglobin today of 10 and platelet count of 54,000. Differential shows 37% neutrophils, 50% bands, 2% lymphocytes and 8% monocytes. Chemistry profile is remarkable for sodium 133, BUN 27, creatinine 0.91, glucose 219, alkaline phosphatase is 129, albumin 1.9. ASSESSMENT AND RECOMMENDATION: This patient likely has pneumonia. She should continue on vancomycin and Aztreonam The patient has been continued on 100 mg prednisone a day. This would be tapered rapidly over the next 4-5 days. However, the steroid dose might have to be increased, if she develops worsening of hypertension. She should receive blood component support as needed. Thanks very much for allowing me to participate in this patient's care. She was referred by oncology service. Job ID: [id number] [facility]ITALGiulia
[2020-01-19 04:46] LABS: ALT (SGPT) 33 U/L (8-55); AST (SGOT) 14 U/L (5-34); Albumin 2.7 g/dL (3.4-4.8); Alkaline Phosphatase 125 U/L (40-110); Anion Gap 9 mmol/L (10-20); BUN (Urea Nitrogen) 23 mg/dL (9.8-20.1); Bilirubin, Total 1.1 mg/dL (0.2-1.2); Calc. Creatinine Clearance 58 mL/min (70-130); Calcium 6.4 mg/dL (7.8-10.44); Carbon Dioxide 24 mmol/L (23-31); Chloride 103 mmol/L (98-107); Estimated GFR-MDRD 72; Glucose 151 mg/dL (83-110); Potassium 3.5 mmol/L (3.5-5.1); Protein, Total 5.7 g/dL (6.0-8.3); Sodium 132 mmol/L (136-145)
[2020-01-19 05:06] LABS: Band 57 % (5-11); Dohle Bodies SLIGHT; Hemoglobin 8.9 g/dL (12.0-16.0); Lymphocytes 1 % (21-51); MDiff Complete? YES; Mean Corpuscular HGB CONC 34.3 g/dL (32.0-36.0); Mean Corpuscular Hemoglobin 30.3 pg (27.0-31.0); Mean Corpuscular Volume 88.5 fL (78.0-98.0); Mean Platelet Volume 9.3 fL (7.4-10.4); Metamyelocyte 1 % (0-0); Myelocyte 1 % (0-0); Neutrophil 40 % (42-75); Platelet Count 48 thou/uL (130-400); Platelet Morphology Comment Appears Decreased; RBC Distribution Width 15.5 % (11.5-14.5); Red Blood Cell (RBC) Count 2.93 mill/uL (4.20-5.40); Toxic Granulation SLIGHT; White Blood Cell (WBC) Count 8.6 thou/uL (4.8-10.8)
[2020-01-19] MEDS: Ipratropium Bromide 2.5 ml Neb NEB SCH ×4 (05:18→23:23)
[2020-01-19] MEDS ORDERED: predniSONE 50 MG TAB PO SCH (08:00)
[2020-01-19] MEDS: Aspirin 81 mg Enteric Coated Tablet PO SCH (09:19)
[2020-01-19] MEDS: Ferrous Sulfate 325 MG TAB PO SCH ×2 (09:20→16:45)
[2020-01-19] MEDS: Megestrol Acetate 40 MG TAB PO SCH (09:20)
[2020-01-19] MEDS: Enoxaparin Sodium 40 MG/0.4 ML SYRINGE SC SCH (12:13)
[2020-01-19 14:04] LABS: Vancomycin, Trough 26.8 ug/mL
[2020-01-19] MEDS ORDERED: Digoxin 0.5 MG/2 ML AMP SLOW IVP SCH ×2 (15:00)
--- NOTE | 2020-01-19 15:06 | PDOC.HOSPP ---
- Subjective Encounter Date: 01/19/20 Encounter Time: 01:45 Subjective: she looks much better, started Po intake, palliatve at bedside along w.. dtr. code status changed to DNR. - Objective Vital Signs & Weight: Vital Signs (12 hours) Temp Pulse Resp Pulse Ox 01/19/20 14:42 109 H 01/19/20 12:12 97.6 F 01/19/20 11:30 96 18 99 01/19/20 08:00 100 01/19/20 07:50 97.8 F 01/19/20 05:18 89 18 100 01/19/20 04:00 98.4 F Weight Admit Weight 130 lb 4.691 oz Weight 126 lb Most Recent Monitor Data Heart Rate from ECG 101 NIBP 109/60 NIBP BP-Mean 76 Respiration from ECG 18 SpO2 100 I&O: 01/18/20 01/19/20 01/20/20 06:59 06:59 06:59 Intake Total 350 4190 Output Total 1450 Balance 350 2740 Result Diagrams: 01/19/20 04:05 01/19/20 04:05 Additional Labs: Accuchecks 01/18/20 21:43 POC Glucose 219 H Hospitalist ROS - Medication Medications: Active Medications Generic Name Dose Route Start Last Admin Trade Name Freq PRN Reason Stop Dose Admin Acetaminophen 650 mg 01/18/20 01:53 01/18/20 02:17 Tylenol PO 650 mg Q4H PRN Administration Headache/Fever/Mild Pain (1-3) Albuterol/Ipratropium 3 ml 01/17/20 15:00 01/19/20 14:08 Duoneb NEB Not Given [id number] LU Aspirin 81 mg 01/18/20 09:00 01/19/20 09:19 Ecotrin PO 81 mg DAILY LU Administration Digoxin 0.25 mg 01/19/20 15:00 01/19/20 14:42 Lanoxin SLOW IVP 01/19/20 17:00 0.25 mg 1500 LU Administration Enoxaparin Sodium 40 mg 01/18/20 09:00 01/19/20 12:13 Lovenox SC Not Given 0900 LU Ferrous Sulfate 325 mg 01/17/20 17:00 01/19/20 09:20 Feosol PO 325 mg BID- LU Administration Guaifenesin 200 mg 01/17/20 17:00 01/19/20 13:33 Organ-I Nr PO 01/19/20 17:01 200 mg Q4HR LU Administration Cefepime HCl 1 gm/ Sodium 100 mls @ 200 mls/hr 01/17/20 23:59 01/19/20 13:33 Chloride IVPB 100 mls 1200,2359 LU Administration Sodium Chloride 1,000 mls @ 50 mls/hr 01/19/20 00:15 01/19/20 00:58 Normal Saline 0.9% IV 1,000 mls .Q20H LU Administration Ipratropium [place] 2.5 ml 01/19/20 07:00 01/19/20 14:08 Atrovent NEB Not Given [id number] LU Lorazepam 1 mg 01/18/20 13:12 01/18/20 14:31 Ativan PO 1 mg Q8H PRN Administration Anxiety/Agitation Megestrol Acetate 40 mg 01/18/20 09:00 01/19/20 09:20 Megace PO 40 mg DAILY LU Administration - Exam General Appearance: NAD, awake alert Eye: PERRL ENT: normocephalic atraumatic Neck: supple Heart: RRR Respiratory: CTAB, normal chest expansion Gastrointestinal: soft, normal bowel sounds Hosp A/P - Plan HCAP -bl bjorn neg -flu neg -CW vanc +cefepime as she is immunocompromised - stop on or T cell lymphoma -per Dr. Alvarez. d/w w.. family, reg.. palliative options. Palliative on board code status - DNAR. she is clinically improving will get PT consult and plan for pulm rehab.
--- NOTE | 2020-01-19 15:16 | PRG ---
DATE OF SERVICE: 01/19/2020 SUBJECTIVE: Ms. Lopes has episodes of hypotension last night. She did receive intravenous fluid. The Cardizem seems to be lowering her blood pressure. OBJECTIVE: VITAL SIGNS: Blood pressure earlier today is 88/48, but it was in the 60 systolic last night. LUNGS: Clear. CARDIAC: Irregularly irregular. ABDOMEN: Soft, nontender. EXTREMITIES: There is no edema. ASSESSMENT: 1. Atrial fibrillation and probably atrial tachycardia. 2. Hypotension with diltiazem. 3. Peripheral T-cell lymphoma. PLAN: 1. We will stop Cardizem. 2. Change to digoxin. 3. Add amiodarone. Hopefully eventually consider cardioversion. Prognosis otherwise appears guarded to current. Code status is do not attempt resuscitation. Job ID: [id number]
[2020-01-19] MEDS ORDERED: Amiodarone 200 MG TAB PO SCH (16:05)
[2020-01-19] MEDS ORDERED: guaiFENesin 200 MG TAB PO PRN (17:00)
[2020-01-19] MEDS: Amiodarone 200 MG TAB PO SCH (20:23)
[2020-01-19] MEDS: Temazepam 15 MG CAP PO PRN (20:24)
[2020-01-20] MEDS: Cefepime 1 GM in Sodium Chloride 0.9% 100 ML IVPB SCH ×2 (00:21→12:25)
[2020-01-20 01:00] LABS: Vancomycin, Random 22.6 ug/mL (See Comment)
--- NOTE | 2020-01-20 01:07 | CON ---
DATE OF CONSULTATION: 01/19/2020 HISTORY OF PRESENT ILLNESS: Ms. Lopes is a 74-year-old female with lymphoma. She has been undergoing chemo. She has been fairly anorexic according to her family and actually had a gastric tube in for a while for nutritional support. She is wearing oxygen now and wants that out of her nose. She says she hates having anything in her nose. I was consulted because of her presence in the intermediate care unit. She presented with rapid atrial fibrillation apparently. PAST MEDICAL HISTORY: Remarkable for lipid disorder, peripheral vascular disease, T-cell lymphoma, peripheral vascular disease, and lymph node biopsy in the past. FAMILY HISTORY: Negative for lung disease in early age. REVIEW OF SYSTEMS: Otherwise negative at this time. She says she is feeling better. PHYSICAL EXAMINATION: VITAL SIGNS: Heart rate is 106. She is in atrial fibrillation. Respiratory rate is 20, oximetry is 99% on 2 L. I took her oxygen off. I suspect she will equilibrate in the low 90s, which is more than adequate, blood pressure 134/67. GENERAL: She appears her age. HEENT: Her pupils are reactive. Sclerae are anicteric. NECK: Without lymphadenopathy. LUNGS: Clear with the exception of decreased breath sounds at the right base. HEART: Regular rhythm. ABDOMEN: Soft and nontender. EXTREMITIES: Without clubbing, cyanosis, or edema. NEUROLOGIC: Grossly nonfocal. DIAGNOSTIC DATA: Chest CT was reviewed, shows right effusion. LABORATORY DATA: White count 8.6, hemoglobin 8.9, platelets 48,000. Electrolytes are unremarkable. Creatinine is 0.78. IMPRESSION: 1. Rapid atrial fibrillation. 2. Pancytopenia related to the lymphoma. 3. Atrial arrhythmias. She appears to be clinically improved. Digoxin was started today. Cardizem was stopped. Amiodarone was added. We will follow while she is in the intermediate care unit. TIME SPENT: This is a 50-minute consult, 50% of the time spent on the unit coordinating care. Job ID: [id number] [facility]
[2020-01-20] MEDS: Ipratropium Bromide 2.5 ml Neb NEB SCH ×4 (06:57→23:15)
[2020-01-20 06:59] LABS: Hemoglobin 9.7 g/dL (12.0-16.0); Mean Corpuscular HGB CONC 33.9 g/dL (32.0-36.0); Mean Corpuscular Hemoglobin 30.3 pg (27.0-31.0); Mean Corpuscular Volume 89.4 fL (78.0-98.0); Mean Platelet Volume 9.5 fL (7.4-10.4); Platelet Count 49 thou/uL (130-400); Red Blood Cell (RBC) Count 3.21 mill/uL (4.20-5.40); White Blood Cell (WBC) Count 6.9 thou/uL (4.8-10.8)
[2020-01-20 07:18] LABS: ALT (SGPT) 38 U/L (8-55); AST (SGOT) 14 U/L (5-34); Albumin 2.5 g/dL (3.4-4.8); Alkaline Phosphatase 118 U/L (40-110); Anion Gap 11 mmol/L (10-20); BUN (Urea Nitrogen) 16 mg/dL (9.8-20.1); Bilirubin, Total 0.8 mg/dL (0.2-1.2); Calc. Creatinine Clearance 71 mL/min (70-130); Calcium 6.8 mg/dL (7.8-10.44); Carbon Dioxide 23 mmol/L (23-31); Chloride 107 mmol/L (98-107); Estimated GFR-MDRD 89; Globulin 3.2 g/dL (2.4-3.5); Glucose 108 mg/dL (83-110); Potassium 3.5 mmol/L (3.5-5.1); Protein, Total 5.7 g/dL (6.0-8.3); Sodium 137 mmol/L (136-145)
[2020-01-20 07:44] LABS: Band 38 % (5-11); Lymphocytes 1 % (21-51); MDiff Complete? YES; Metamyelocyte 1 % (0-0); Neutrophil 60 % (42-75); Platelet Morphology Comment Appears Decreased; Polychromasia SLIGHT = 2-3 cells (100X) (0-2/hpf)
[2020-01-20] MEDS ORDERED: predniSONE 50 MG TAB PO SCH (08:00)
[2020-01-20] MEDS: Ferrous Sulfate 325 MG TAB PO SCH ×2 (09:03→18:24)
[2020-01-20] MEDS: Digoxin 0.125 MG TAB PO SCH (09:03)
[2020-01-20] MEDS: Amiodarone 200 MG TAB PO SCH ×3 (09:03→21:22)
[2020-01-20] MEDS: Megestrol Acetate 40 MG TAB PO SCH (09:03)
[2020-01-20] MEDS: Aspirin 81 mg Enteric Coated Tablet PO SCH (09:03)
[2020-01-20] MEDS: Enoxaparin Sodium 40 MG/0.4 ML SYRINGE SC SCH (09:04)
--- NOTE | 2020-01-20 10:49 | PDOC.CPN ---
- Subjective Date: 01/20/20 Time: 12:58 Interval history: Feels better overall. Less SOB. HR stable and in the 80's to 90's. In SR No current complaints of CP - Objective Allergies/Adverse Reactions: Allergies Allergy/AdvReac Type Severity Reaction Status Date / Time No Known Allergies Allergy Verified 01/17/20 19:22 Visit Medications: Current Medications Acetaminophen (Tylenol) 650 mg NE Q4H PRN PRN Reason: Headache/Fever/Mild Pain (1-3) Acetaminophen (Tylenol) 650 mg PO Q4H PRN PRN Reason: Headache/Fever/Mild Pain (1-3) Last Admin: 01/18/20 02:17 Dose: 650 mg Albuterol/Ipratropium (Duoneb) 3 ml NEB [id number] [facility] Last Admin: 01/20/20 06:58 Dose: 3 ml Amiodarone HCl (Cordarone) 200 mg PO TID [facility] Last Admin: 01/20/20 09:03 Dose: 200 mg Aspirin (Ecotrin) 81 mg PO DAILY [facility] Last Admin: 01/20/20 09:03 Dose: 81 mg Calcium Carbonate (Tums) 1,000 mg PO Q4H PRN PRN Reason: Heartburn or Indigestion Digoxin (Lanoxin) 0.125 mg PO DAILY [facility] Last Admin: 01/20/20 09:03 Dose: 0.125 mg Enoxaparin Sodium (Lovenox) 40 mg SC 0900 [facility] Last Admin: 01/20/20 09:04 Dose: Not Given Ferrous Sulfate (Feosol) 325 mg PO BID-[facility] Last Admin: 01/20/20 09:03 Dose: 325 mg Guaifenesin (Organ-I Nr) 200 mg PO Q4H PRN PRN Reason: Cough Cefepime HCl 1 gm/ Sodium (Chloride) 100 mls @ 200 mls/hr IVPB 1200,2359 [facility] Last Admin: 01/20/20 00:21 Dose: 100 mls Sodium Chloride (Normal Saline 0.9%) 1,000 mls @ 50 mls/hr IV .Q20H [facility] Last Admin: 01/19/20 19:35 Dose: 1,000 mls Vancomycin HCl 1 gm/ Device 200 mls @ 200 mls/hr IVPB 0100 [facility] Ipratropium [place] (Atrovent) 2.5 ml NEB [id number] [facility] Last Admin: 01/20/20 06:57 Dose: Not Given Loperamide HCl (Imodium) 2 mg PO Q6H PRN PRN Reason: Diarrhea/Loose Stools Lorazepam (Ativan) 1 mg PO Q8H PRN PRN Reason: Anxiety/Agitation Last Admin: 01/18/20 14:31 Dose: 1 mg Megestrol Acetate (Megace) 40 mg PO DAILY [facility] Last Admin: 01/20/20 09:03 Dose: 40 mg Metoprolol Tartrate (Lopressor) 5 mg IVP Q4H PRN PRN Reason: for SBP>150 or HR>90 Stop: 01/20/20 15:12 Miscellaneous Medication (Pharmacy To Dose) 1 each IVPB PRN PRN PRN Reason: Pharmacy to dose Prednisone (Prednisone) 25 mg PO QA-[facility] Stop: 01/20/20 11:00 Last Admin: 01/20/20 09:03 Dose: 25 mg Prednisone (Prednisone) 10 mg PO [facility] Stop: 01/21/20 11:00 Senna/Docusate Sodium (Senokot S) 2 tab PO BID PRN PRN Reason: Constipation Temazepam (Restoril) 15 mg PO HSPRN PRN PRN Reason: Insomnia Last Admin: 01/19/20 20:24 Dose: 15 mg Vital Signs & Weight: Vital Signs Temp Pulse Resp Pulse Ox 01/20/20 09:03 84 01/20/20 07:25 97.8 F 01/20/20 06:58 84 17 98 01/20/20 03:46 97.5 F L 01/20/20 00:00 98.8 F 01/19/20 23:23 79 16 99 Admit Weight 130 lb 4.691 oz Weight 131 lb 12.8 oz - Physical Exam General: alert & oriented x3 Neck: supple neck Cardiac: no murmur, regular rate, regular rhythm Lungs: normal exam Neuro: grossly intact - Labs Result Diagrams: 01/20/20 06:40 01/20/20 06:40 Troponin/CKMB Troponin I 0.030 ng/mL (< 0.028) H 01/17/20 17:46 - Assessment/Plan Assessment/Plan: Afib Atrial tachycardia hypotension T Cell Lymphoma on amiodarone po In SR BP stable on Abx
[2020-01-20 13:38] LABS: Vancomycin, Random 11.3 ug/mL (See Comment)
[2020-01-20] MEDS: Sodium Chloride 0.9% 1,000 ML IV SCH (15:07)
[2020-01-20] MEDS: Vancomycin 1 GM in Premix Bag 1 BAG IVPB SCH (15:07)
--- NOTE | 2020-01-20 16:13 | EKG ---
Test Reason : Blood Pressure : / mmHG Vent. Rate : 142 BPM Atrial Rate : 330 BPM P-R Int : 000 ms QRS Dur : 112 ms QT Int : 280 ms P-R-T Axes : 000 075 -75 degrees QTc Int : 430 ms Atrial flutter with variable A-V block Low voltage QRS Incomplete right bundle branch block Abnormal ECG Confirmed by GERRY SALVADOR M.D. ([id number]), business editor PEPE LAWSON ([id number] on 01/20/2020 4:13:14 PM Referred By: Confirmed By:GERRY SALVADOR M.D.
--- NOTE | 2020-01-20 16:14 | EKG ---
Test Reason : Blood Pressure : / mmHG Vent. Rate : 096 BPM Atrial Rate : 096 BPM P-R Int : 112 ms QRS Dur : 112 ms QT Int : 382 ms P-R-T Axes : 076 071 -04 degrees QTc Int : 482 ms Normal sinus rhythm Low voltage QRS Right bundle branch block Abnormal ECG No ST elevation/KY T wave inversion V1-V3 Confirmed by GERRY SALVADOR M.D. ([id number]), technical writer and editor PEPE LAWSON ([id number] on 01/20/2020 4:14:37 PM Referred By: Confirmed By:GERRY SALVADOR M.D.
--- NOTE | 2020-01-20 16:15 | EKG ---
Test Reason : Blood Pressure : / mmHG Vent. Rate : 131 BPM Atrial Rate : 131 BPM P-R Int : 126 ms QRS Dur : 102 ms QT Int : 340 ms P-R-T Axes : 067 080 -10 degrees QTc Int : 502 ms Sinus tachycardia Possible Left atrial enlargement Incomplete right bundle branch block Abnormal ECG #4 T wave inversion V1-V3 No ST elevation/CA Confirmed by GERRY SALVADOR M.D. ([id number]), features editor PEPE LAWSON ([id number] on 01/20/2020 4:15:40 PM Referred By: Confirmed By:GERRY SALVADOR M.D.
--- NOTE | 2020-01-20 16:15 | EKG ---
Test Reason : Blood Pressure : / mmHG Vent. Rate : 106 BPM Atrial Rate : 106 BPM P-R Int : 112 ms QRS Dur : 106 ms QT Int : 372 ms P-R-T Axes : 076 078 -61 degrees QTc Int : 494 ms Sinus tachycardia with Premature atrial complexes Possible Left atrial enlargement Incomplete right bundle branch block T wave abnormality, consider inferior ischemia Abnormal ECG #3 Confirmed by GERRY SALVADOR M.D. ([id number]), image editor PEPE LAWSON ([id number] on 01/20/2020 4:14:47 PM Referred By: Confirmed By:GERRY SALVADOR M.D.
--- NOTE | 2020-01-20 17:27 | PRG ---
DATE OF SERVICE: 01/20/2020 SUBJECTIVE: Moses says she is feeling better. Oximetry is 100% now on room air. OBJECTIVE: VITAL SIGNS: She is afebrile, heart rate is in the 90s and she is still in atrial fibrillation, blood pressure 132/64. LUNGS: Clear. HEART: Irregular rhythm. ABDOMEN: Soft. IMPRESSION: 1. Rapid atrial fibrillation, improved. 2. Dyspnea and hypoxemia, improved, probably close to her baseline. 3. History of anorexia with her malignancy. Her appetite is pretty good today. She is taking 2 cans of Ensure before lunch. 4. T-cell lymphoma. 5. Anemia of chronic disease with thrombocytopenia, also related to her malignancy, in treatment. PLAN: She is stable to move out of the intermediate care unit in my opinion. Job ID: [id number]
--- NOTE | 2020-01-20 18:47 | PDOC.HOSPP ---
- Subjective Encounter Date: 01/20/20 Encounter Time: 18:30 Subjective: f/u for PNA, A-fib RVR on current Cefepime/Vancomycin/Amiodarone/Digoxin. States feeling better overall. - Objective Vital Signs & Weight: Vital Signs (12 hours) Temp Pulse Pulse Pulse Resp BP BP 01/20/20 15:56 97.3 F L 01/20/20 14:06 96 23 H 01/20/20 12:21 97.2 F L 01/20/20 11:53 102 H 100 144/77 H 160/81 H 01/20/20 11:00 97 21 H 01/20/20 09:03 84 01/20/20 08:00 01/20/20 07:25 97.8 F 01/20/20 06:58 84 17 Pulse Ox Pulse Ox 01/20/20 15:56 01/20/20 14:06 100 01/20/20 12:21 01/20/20 11:53 100 01/20/20 11:00 99 01/20/20 09:03 01/20/20 08:00 98 01/20/20 07:25 01/20/20 06:58 98 Weight Admit Weight 130 lb 4.691 oz Weight 131 lb 12.8 oz Most Recent Monitor Data Heart Rate from ECG 96 NIBP 143/81 NIBP BP-Mean 101 Respiration from ECG 15 SpO2 99 I&O: 01/19/20 01/20/20 01/21/20 06:59 06:59 06:59 Intake Total 4190 1096 Output Total 1450 1300 Balance 2740 -204 Result Diagrams: 01/20/20 06:40 01/20/20 06:40 Additional Labs: Microbiology 01/17/20 13:25 Nasal swab Influenza Types A,B Direct EIA - Final 01/17/20 11:37 Port - Left Subclavian Vein Blood Culture - Preliminary NO GROWTH AT 48 HOURS 01/17/20 11:27 Venous blood - Right Hand Blood Culture - Preliminary NO GROWTH AT 48 HOURS Radiology Reviewed by me: Yes (Echo = EF 55-60%) EKG Reviewed by me: Yes (Tele - A-fib/flutter in low-100's) Hospitalist ROS - Medication Medications: Active Medications Generic Name Dose Route Start Last Admin Trade Name Freq PRN Reason Stop Dose Admin Acetaminophen 650 mg 01/18/20 01:53 03/12/20 02:17 Tylenol PO 650 mg Q4H PRN Administration Headache/Fever/Mild Pain (1-3) Albuterol/Ipratropium 3 ml 01/17/20 15:00 01/20/20 14:06 Duoneb NEB 3 ml [id number] LU Administration Amiodarone HCl 200 mg 01/19/20 21:00 01/20/20 15:06 Cordarone PO 200 mg TID LU Administration Aspirin 81 mg 01/18/20 09:00 01/20/20 09:03 Ecotrin PO 81 mg DAILY LU Administration Digoxin 0.125 mg 01/20/20 09:00 01/20/20 09:03 Lanoxin PO 0.125 mg DAILY LU Administration Enoxaparin Sodium 40 mg 01/18/20 09:00 01/20/20 09:04 Lovenox SC Not Given 0900 LU Ferrous Sulfate 325 mg 01/17/20 17:00 01/20/20 18:24 Feosol PO 325 mg BID- LU Administration Cefepime HCl 1 gm/ Sodium 100 mls @ 200 mls/hr 01/17/20 23:59 01/20/20 12:25 Chloride IVPB 100 mls 1200,2359 LU Administration Sodium Chloride 1,000 mls @ 50 mls/hr 01/19/20 00:15 01/20/20 15:07 Normal Saline 0.9% IV 1,000 mls .Q20H LU Administration Vancomycin HCl 1 gm/ Device 200 mls @ 200 mls/hr 01/20/20 14:00 01/20/20 15: 07 IVPB 200 mls 1400 LU Administration Ipratropium [place] 2.5 ml 01/19/20 07:00 01/20/20 17:59 Atrovent NEB Not Given [id number] LU Lorazepam 1 mg 01/18/20 13:12 01/18/20 14:31 Ativan PO 1 mg Q8H PRN Administration Anxiety/Agitation Megestrol Acetate 40 mg 01/18/20 09:00 01/20/20 09:03 Megace PO 40 mg DAILY LU Administration Temazepam 15 mg 01/17/20 13:55 01/19/20 20:24 Restoril PO 15 mg HSPRN PRN Administration Insomnia - Exam General Appearance: NAD, awake alert Eye: PERRL, anicteric sclera ENT: normocephalic atraumatic, no oropharyngeal lesions Neck: supple, symmetric, no JVD, no thyromegaly Heart: no murmur, no gallops, no rubs, normal peripheral pulses, irregular Heart - other findings: S1, S2 Respiratory: no ronchi, tachypneic Respiratory - other findings: diminished in bases Gastrointestinal: soft, non-tender, non-distended, normal bowel sounds, no palpable masses Extremities: no cyanosis, no clubbing, no edema Skin: normal turgor, no lesions Neurological: cranial nerve grossly intact, no new deficit Musculoskeletal: normal tone, generalized weakness Psychiatric: A&O x 3, flat affect Hosp A/P (1) HCAP (healthcare-associated pneumonia) Code(s): J18.9 - PNEUMONIA, UNSPECIFIED ORGANISM Status: Acute Plan: Continue Cefepime/Vancomycin, pulmonary supportive measures (2) New onset atrial fibrillation Code(s): I48.91 - UNSPECIFIED ATRIAL FIBRILLATION Status: Acute Plan: Continue rate-control strategy, Amiodarone/Digoxin/ (3) Lymphoma, T-cell Code(s): C85.90 - NON-HODGKIN LYMPHOMA, UNSPECIFIED, UNSPECIFIED SITE Status: Chronic Plan: Continue outpt mgmt per medical oncology recommendations (4) Anemia due to chemotherapy Code(s): D64.81 - ANEMIA DUE TO ANTINEOPLASTIC CHEMOTHERAPY; T45.1X5A - ADVERSE EFFECT OF ANTINEOPLASTIC AND IMMUNOSUP DRUGS, INIT Status: Acute Plan: s/p 2u PRBC's, stable H/H trend (5) Thrombocytopenia Code(s): D69.6 - THROMBOCYTOPENIA, UNSPECIFIED Status: Chronic Plan: Due to chemotherapy, serial monitoring, Prednisone taper - Plan continue antibiotics, PT/OT, social media marketing manager, respiratory therapy, out of bed/ ambulate, DVT proph w/SCDs Stable currently Continue Cefepime/Vancomycin OOB with PT Continue Amiodarone/Digoxin Continue Megace/Ensure Likely transition to telemetry unit
[2020-01-20] MEDS ORDERED: Digoxin 0.125 MG TAB PO SCH (19:15)
[2020-01-20] MEDS: Temazepam 15 MG CAP PO PRN (21:22)
[2020-01-21] MEDS: Cefepime 1 GM in Sodium Chloride 0.9% 100 ML IVPB SCH ×2 (00:42→12:54)
[2020-01-21 06:28] LABS: #Lymphocytes 0.2 thou/uL (1.20-3.40); #Monocytes 0.2 thou/uL (0.11-0.59); %Basophils 0.4 % (0.0-1.0); %Eosinophils 0.7 % (0.0-10.0); %Monocytes 2.2 % (0.0-10.0); %Neutrophils 93.8 % (42.0-75.0); Hemoglobin 10.1 g/dL (12.0-16.0); Mean Corpuscular HGB CONC 34.1 g/dL (32.0-36.0); Mean Corpuscular Hemoglobin 30.8 pg (27.0-31.0); Mean Corpuscular Volume 90.2 fL (78.0-98.0); Mean Platelet Volume 8.7 fL (7.4-10.4); Platelet Count 62 thou/uL (130-400); RBC Distribution Width 16.1 % (11.5-14.5); Red Blood Cell (RBC) Count 3.28 mill/uL (4.20-5.40); White Blood Cell (WBC) Count 7.5 thou/uL (4.8-10.8)
[2020-01-21 06:35] LABS: ALT (SGPT) 50 U/L (8-55); AST (SGOT) 15 U/L (5-34); Albumin 2.5 g/dL (3.4-4.8); Alkaline Phosphatase 134 U/L (40-110); Anion Gap 8 mmol/L (10-20); BUN (Urea Nitrogen) 13 mg/dL (9.8-20.1); Bilirubin, Total 0.8 mg/dL (0.2-1.2); Calc. Creatinine Clearance 72 mL/min (70-130); Calcium 7.4 mg/dL (7.8-10.44); Carbon Dioxide 26 mmol/L (23-31); Chloride 107 mmol/L (98-107); Estimated GFR-MDRD 86; Globulin 3.3 g/dL (2.4-3.5); Glucose 89 mg/dL (83-110); Potassium 3.5 mmol/L (3.5-5.1); Protein, Total 5.8 g/dL (6.0-8.3); Sodium 137 mmol/L (136-145)
[2020-01-21] MEDS: Ipratropium Bromide 2.5 ml Neb NEB SCH ×3 (07:04→19:28)
--- NOTE | 2020-01-21 07:58 | PDOC.CPN ---
- Subjective Date: 01/21/20 Time: 10:25 Interval history: Still with SOB but overall better. Complaining of weakness. Developed atrial flutter this am - Objective Allergies/Adverse Reactions: Allergies Allergy/AdvReac Type Severity Reaction Status Date / Time No Known Allergies Allergy Verified 01/17/20 19:22 Visit Medications: Current Medications Acetaminophen (Tylenol) 650 mg [place] Q4H PRN PRN Reason: Headache/Fever/Mild Pain (1-3) Acetaminophen (Tylenol) 650 mg PO Q4H PRN PRN Reason: Headache/Fever/Mild Pain (1-3) Last Admin: 01/18/20 02:17 Dose: 650 mg Albuterol/Ipratropium (Duoneb) 3 ml NEB [id number] Last Admin: 01/21/20 07:07 Dose: 3 ml Amiodarone HCl (Cordarone) 200 mg PO TID [facility] Last Admin: 01/20/20 21:22 Dose: 200 mg Aspirin (Ecotrin) 81 mg PO DAILY [facility] Last Admin: 01/20/20 09:03 Dose: 81 mg Calcium Carbonate (Tums) 1,000 mg PO Q4H PRN PRN Reason: Heartburn or Indigestion Digoxin (Lanoxin) 0.125 mg PO DAILY [facility] Last Admin: 01/20/20 09:03 Dose: 0.125 mg Enoxaparin Sodium (Lovenox) 40 mg SC 0900 [facility] Last Admin: 01/20/20 09:04 Dose: Not Given Ferrous Sulfate (Feosol) 325 mg PO BID-[facility] Last Admin: 01/20/20 18:24 Dose: 325 mg Guaifenesin (Organ-I Nr) 200 mg PO Q4H PRN PRN Reason: Cough Cefepime HCl 1 gm/ Sodium (Chloride) 100 mls @ 200 mls/hr IVPB 1200,2359 [facility] Last Admin: 01/21/20 00:42 Dose: 100 mls Sodium Chloride (Normal Saline 0.9%) 1,000 mls @ 50 mls/hr IV .Q20H [facility] Last Admin: 01/20/20 15:07 Dose: 1,000 mls Vancomycin HCl 1 gm/ Device 200 mls @ 200 mls/hr IVPB 1400 [facility] Last Admin: 01/20/20 15:07 Dose: 200 mls Ipratropium [place] (Atrovent) 2.5 ml NEB [id number] [facility] Last Admin: 01/21/20 07:04 Dose: Not Given Loperamide HCl (Imodium) 2 mg PO Q6H PRN PRN Reason: Diarrhea/Loose Stools Lorazepam (Ativan) 1 mg PO Q8H PRN PRN Reason: Anxiety/Agitation Last Admin: 01/18/20 14:31 Dose: 1 mg Megestrol Acetate (Megace) 40 mg PO DAILY [facility] Last Admin: 01/20/20 09:03 Dose: 40 mg Miscellaneous Medication (Pharmacy To Dose) 1 each IVPB PRN PRN PRN Reason: Pharmacy to dose Prednisone (Prednisone) 10 mg PO QAM-WM [facility] Stop: 01/21/20 11:00 Senna/Docusate Sodium (Senokot S) 2 tab PO BID PRN PRN Reason: Constipation Temazepam (Restoril) 15 mg PO HSPRN PRN PRN Reason: Insomnia Last Admin: 01/20/20 21:22 Dose: 15 mg Vital Signs & Weight: Vital Signs Temp Pulse Resp Pulse Ox 01/21/20 07:20 98.4 F 01/21/20 07:07 80 17 99 01/21/20 05:40 97.3 F L 01/21/20 00:52 99.3 F 01/20/20 23:15 86 20 98 01/20/20 20:00 97.9 F 99 Admit Weight 130 lb 4.691 oz Weight 138 lb 6.4 oz - Physical Exam General: alert & oriented x3 Neck: supple neck, midline trachea Cardiac: no murmur, regular rate, regular rhythm Lungs: normal exam Neuro: grossly intact - Labs Result Diagrams: 01/21/20 05:45 01/21/20 05:45 Troponin/CKMB Troponin I 0.030 ng/mL (< 0.028) H 01/17/20 17:46 - Assessment/Plan Assessment/Plan: Afib Atrial tachycardia hypotension T Cell Lymphoma 01/20 REC on amiodarone po In SR BP stable on Abx on lovenox but increased risk of bleeding on full dose lovenox secondary to low platelets. NPO in am EP consult
[2020-01-21] MEDS ORDERED: predniSONE 20 MG TAB PO SCH (08:00)
[2020-01-21] MEDS: Megestrol Acetate 40 MG TAB PO SCH (08:24)
[2020-01-21] MEDS: Digoxin 0.125 MG TAB PO SCH (08:24)
[2020-01-21] MEDS: Amiodarone 200 MG TAB PO SCH ×3 (08:24→20:39)
[2020-01-21] MEDS: Enoxaparin Sodium 40 MG/0.4 ML SYRINGE SC SCH (08:24)
[2020-01-21] MEDS: Ferrous Sulfate 325 MG TAB PO SCH ×2 (08:24→16:44)
[2020-01-21] MEDS: Aspirin 81 mg Enteric Coated Tablet PO SCH (08:24)
[2020-01-21] MEDS: Sodium Chloride 0.9% 1,000 ML IV SCH (12:54)
[2020-01-21] MEDS: Vancomycin 1 GM in Premix Bag 1 BAG IVPB SCH (14:23)
--- NOTE | 2020-01-21 16:27 | PDOC.HOSPP ---
- Subjective Encounter Date: 01/21/20 Encounter Time: 16:25 Subjective: f/u for PNA, A-fib/flutter on current Amiodarone/Digoxin. States doing ok overall. - Objective Vital Signs & Weight: Vital Signs (12 hours) Temp Pulse Resp Pulse Ox 01/21/20 15:17 99.0 F 01/21/20 14:27 94 19 01/21/20 11:20 98.8 F 01/21/20 10:26 83 18 98 01/21/20 08:24 104 H 01/21/20 08:00 98 01/21/20 07:20 98.4 F 01/21/20 07:07 80 17 99 01/21/20 05:40 97.3 F L Weight Admit Weight 130 lb 4.691 oz Weight 138 lb 6.4 oz Most Recent Monitor Data Heart Rate from ECG 97 NIBP 153/77 NIBP BP-Mean 102 Respiration from ECG 17 SpO2 98 I&O: 01/20/20 01/21/20 01/22/20 06:59 06:59 06:59 Intake Total 1096 1793 350 Output Total 1300 1650 Balance -204 143 350 Result Diagrams: 01/22/20 06:17 01/22/20 06:17 Additional Labs: Microbiology 01/17/20 13:25 Nasal swab Influenza Types A,B Direct EIA - Final 01/17/20 11:37 Port - Left Subclavian Vein Blood Culture - Preliminary NO GROWTH AT 48 HOURS 01/17/20 11:27 Venous blood - Right Hand Blood Culture - Preliminary NO GROWTH AT 48 HOURS EKG Reviewed by me: Yes (Tele - SR with paroxysmal A-flutter) Hospitalist ROS - Medication Medications: Active Medications Generic Name Dose Route Start Last Admin Trade Name Freq PRN Reason Stop Dose Admin Acetaminophen 650 mg 01/18/20 01:53 01/18/20 02:17 Tylenol PO 650 mg Q4H PRN Administration Headache/Fever/Mild Pain (1-3) Albuterol/Ipratropium 3 ml 01/17/20 15:00 01/21/20 14:27 Duoneb NEB 3 ml [id number] LU Administration Amiodarone HCl 200 mg 01/19/20 21:00 01/21/20 14:23 Cordarone PO 200 mg TID LU Administration Aspirin 81 mg 01/18/20 09:00 01/21/20 08:24 Ecotrin PO 81 mg DAILY LU Administration Digoxin 0.125 mg 01/20/20 09:00 01/21/20 08:24 Lanoxin PO 0.125 mg DAILY LU Administration Enoxaparin Sodium 40 mg 01/18/20 09:00 01/21/20 08:24 Lovenox SC 40 mg 0900 LU Administration Ferrous Sulfate 325 mg 01/17/20 17:00 01/21/20 08:24 Feosol PO 325 mg BID-WM LU Administration Cefepime HCl 1 gm/ Sodium 100 mls @ 200 mls/hr 01/17/20 23:59 01/21/20 12:54 Chloride IVPB 100 mls 1200,2359 LU Administration Sodium Chloride 1,000 mls @ 50 mls/hr 01/19/20 00:15 01/21/20 12:54 Normal Saline 0.9% IV 1,000 mls .Q20H LU Administration Vancomycin HCl 1 gm/ Device 200 mls @ 200 mls/hr 01/20/20 14:00 01/21/20 14: 23 IVPB 200 mls 1400 LU Administration Ipratropium [place] 2.5 ml 01/19/20 07:00 01/21/20 12:16 Atrovent NEB Not Given [id number] LU Lorazepam 1 mg 01/18/20 13:12 01/18/20 14:31 Ativan PO 1 mg Q8H PRN Administration Anxiety/Agitation Megestrol Acetate 40 mg 01/18/20 09:00 01/21/20 08:24 Megace PO 40 mg DAILY LU Administration Temazepam 15 mg 01/17/20 13:55 01/20/20 21:22 Restoril PO 15 mg HSPRN PRN Administration Insomnia - Exam General Appearance: NAD, awake alert Eye: PERRL, anicteric sclera ENT: normocephalic atraumatic, no oropharyngeal lesions Neck: supple, symmetric, no JVD, no thyromegaly Heart: RRR, no gallops, no rubs, normal peripheral pulses Respiratory: CTAB, no wheezes, no rales, no ronchi, normal chest expansion Gastrointestinal: soft, non-tender, non-distended, normal bowel sounds, no palpable masses Extremities: no cyanosis, no clubbing, no edema Skin: normal turgor, no lesions Neurological: cranial nerve grossly intact, no new deficit Musculoskeletal: normal tone, normal strength, no muscle wasting Psychiatric: normal affect, A&O x 3 Hosp A/P (1) HCAP (healthcare-associated pneumonia) Code(s): J18.9 - PNEUMONIA, UNSPECIFIED ORGANISM Status: Acute Plan: Continue Cefepime/Vancomycin/Duonebs (2) New onset atrial fibrillation Code(s): I48.91 - UNSPECIFIED ATRIAL FIBRILLATION Status: Acute Plan: Paroxysmal A-fib/flutter with variable rate, continue Amiodarone/Digoxin/Lovenox , EP consult for consideration of ablation (3) Lymphoma, T-cell Code(s): C85.90 - NON-HODGKIN LYMPHOMA, UNSPECIFIED, UNSPECIFIED SITE Status: Chronic (4) Anemia due to chemotherapy Code(s): D64.81 - ANEMIA DUE TO ANTINEOPLASTIC CHEMOTHERAPY; T45.1X5A - ADVERSE EFFECT OF ANTINEOPLASTIC AND IMMUNOSUP DRUGS, INIT Status: Acute Plan: s/p 2u PRBC's, stable H/H currently (5) Thrombocytopenia Code(s): D69.6 - THROMBOCYTOPENIA, UNSPECIFIED Status: Chronic Plan: Stable, continue serial monitoring closely given use of Lovenox - Plan continue antibiotics, PT/OT, 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
[2020-01-21] MEDS: Temazepam 15 MG CAP PO PRN (20:39)
[2020-01-22] MEDS: Cefepime 1 GM in Sodium Chloride 0.9% 100 ML IVPB SCH ×2 (00:08→11:56)
[2020-01-22] MEDS: Ipratropium Bromide 2.5 ml Neb NEB SCH ×4 (01:08→18:44)
[2020-01-22 06:39] LABS: Hemoglobin 10.2 g/dL (12.0-16.0); Mean Corpuscular HGB CONC 34.1 g/dL (32.0-36.0); Mean Corpuscular Hemoglobin 30.9 pg (27.0-31.0); Mean Corpuscular Volume 90.5 fL (78.0-98.0); Mean Platelet Volume 8.7 fL (7.4-10.4); Platelet Count 94 thou/uL (130-400); RBC Distribution Width 16.1 % (11.5-14.5); White Blood Cell (WBC) Count 8.2 thou/uL (4.8-10.8)
[2020-01-22 07:23] LABS: ALT (SGPT) 36 U/L (8-55); AST (SGOT) 11 U/L (5-34); Albumin 2.3 g/dL (3.4-4.8); Alkaline Phosphatase 123 U/L (40-110); Anion Gap 8 mmol/L (10-20); BUN (Urea Nitrogen) 11 mg/dL (9.8-20.1); Bilirubin, Total 0.7 mg/dL (0.2-1.2); Calc. Creatinine Clearance 75 mL/min (70-130); Calcium 7.4 mg/dL (7.8-10.44); Carbon Dioxide 27 mmol/L (23-31); Chloride 107 mmol/L (98-107); Estimated GFR-MDRD 89; Globulin 3.2 g/dL (2.4-3.5); Glucose 86 mg/dL (83-110); Potassium 3.5 mmol/L (3.5-5.1); Protein, Total 5.5 g/dL (6.0-8.3); Sodium 138 mmol/L (136-145)
[2020-01-22] MEDS ORDERED: Racepinephrine 2.25% 0.5 ML NEB ONE (08:00)
[2020-01-22 08:16] LABS: Band 38 % (5-11); Lymphocytes 2 % (21-51); MDiff Complete? YES; Monocytes 2 % (0-10); Neutrophil 57 % (42-75); Platelet Morphology Comment Appears Decreased; Polychromasia SLIGHT = 2-3 cells (100X) (0-2/hpf); Reactive Lymphocytes 1 % (0-10)
[2020-01-22] MEDS: Amiodarone 200 MG TAB PO SCH ×3 (08:22→20:36)
[2020-01-22] MEDS: Aspirin 81 mg Enteric Coated Tablet PO SCH (08:22)
[2020-01-22] MEDS: Digoxin 0.125 MG TAB PO SCH (08:22)
[2020-01-22] MEDS: Enoxaparin Sodium 40 MG/0.4 ML SYRINGE SC SCH (08:23)
[2020-01-22] MEDS: Megestrol Acetate 40 MG TAB PO SCH (08:23)
[2020-01-22] MEDS: Ferrous Sulfate 325 MG TAB PO SCH ×2 (08:23→19:22)
[2020-01-22] MEDS: Sodium Chloride 0.9% 1,000 ML IV SCH (10:19)
--- NOTE | 2020-01-22 11:09 | PDOC.MOPN ---
Interval History: denies CP, SOB - Vital Signs Vital Signs: Vital Signs (12 hours) Temp Pulse Resp Pulse Ox 01/22/20 10:45 99 17 99 01/22/20 08:22 92 01/22/20 08:00 99 01/22/20 07:21 98.4 F 01/22/20 06:30 99 01/22/20 06:24 88 18 98 01/22/20 03:25 99.2 F 01/22/20 01:08 98 01/21/20 23:26 99.1 F Weight Admit Weight 130 lb 4.691 oz Weight 140 lb 11.2 oz Most Recent Monitor Data Heart Rate from ECG 85 NIBP 134/74 NIBP BP-Mean 94 Respiration from ECG 14 SpO2 100 - Physical Exam General: Alert, Oriented x3, No acute distress HEENT: Atraumatic, PERRLA, EOMI, Mucous membr. moist/pink Lungs: Clear to auscultation, Other (wheezing) Cardiovascular: Other (irregular) Abdomen: Normal bowel sounds, Soft, No tenderness, No hepatospenomegaly, No masses Extremities: No clubbing, No cyanosis, No edema, Normal pulses, No tenderness/ swelling Skin: No rashes, No breakdown, No significant lesion Neurological: Normal gait, Normal speech, Strength at 5/5 X4 ext, Normal tone, Sensation intact, Cranial nerves 3-12 NL, Reflexes 2+ Psych/Mental Status: Mental status NL, Mood NL - Labs Result Diagrams: 01/22/20 06:17 01/22/20 06:17 Lab results: Laboratory Results - last 24 hr 01/22/20 06:17: Sodium 138, Potassium 3.5, Chloride 107, Carbon Dioxide 27, Anion Gap 8 L, BUN 11, Creatinine 0.65, Estimated GFR (MDRD) 89, Glucose 86, Calcium 7.4 L, Total Bilirubin 0.7, AST 11, ALT 36, Alkaline Phosphatase 123 H, Serum Total Protein 5.5 L, Albumin 2.3 L, Globulin 3.2, Albumin/Globulin Ratio 0.7 L 01/22/20 06:17: WBC 8.2, RBC 3.30 L, Hgb 10.2 L, Hct 29.8 L, MCV 90.5, MCH 30.9 , MCHC 34.1, RDW 16.1 H, Plt Count 94 L, MPV 8.7, Neutrophils % (Manual) 57, Band Neuts % (Manual) 38 H, Lymphocytes % (Manual) 2 L, Reactive Lymphs % 1, Monocytes % (Manual) 2, Lymphocytes # Not Reportable, Plt Morphology Comment Appears Decreased L, Polychromasia SLIGHT = 2-3 cells Status: lab reviewed by me A/P - Problem (1) New onset atrial fibrillation Current Visit: Yes Code(s): I48.91 - UNSPECIFIED ATRIAL FIBRILLATION Status : Acute (2) Lymphoma, T-cell Current Visit: No Code(s): C85.90 - NON-HODGKIN LYMPHOMA, UNSPECIFIED, UNSPECIFIED SITE Status: Chronic - Plan Plan: 1. Continue ABx, supportive care 2. No transfusion required at this time 3. Cycle 2 chemo due next week. 4. Follow-up with Dr. Alvarez prior to chemo. May postpone.
--- NOTE | 2020-01-22 15:07 | PDOC.HOSPP ---
- Subjective Encounter Date: 01/22/20 Encounter Time: 15:00 Subjective: f/u for A-fib/flutter with variable rate on Amiodarone rate-controlled currently. Receiving Cefepime/Vanc for current HCAP. - Objective Vital Signs & Weight: Vital Signs (12 hours) Temp Pulse Pulse Pulse Resp BP BP 01/22/20 14:37 01/22/20 14:34 88 16 01/22/20 11:45 98.6 F 01/22/20 10:45 99 17 01/22/20 09:50 109 H 94 167/80 H 139/74 01/22/20 08:22 92 01/22/20 08:00 01/22/20 07:21 98.4 F 01/22/20 06:30 01/22/20 06:24 88 18 01/22/20 03:25 99.2 F Pulse Ox 01/22/20 14:37 98 01/22/20 14:34 01/22/20 11:45 01/22/20 10:45 99 01/22/20 09:50 01/22/20 08:22 01/22/20 08:00 99 01/22/20 07:21 01/22/20 06:30 99 01/22/20 06:24 98 01/22/20 03:25 Weight Admit Weight 130 lb 4.691 oz Weight 140 lb 11.2 oz Most Recent Monitor Data Heart Rate from ECG 104 NIBP 152/63 NIBP BP-Mean 92 Respiration from ECG 22 SpO2 79 I&O: 01/21/20 01/22/20 01/23/20 06:59 06:59 06:59 Intake Total 1793 590 Output Total 1650 1150 Balance 143 -560 Result Diagrams: 01/22/20 06:17 01/22/20 06:17 Additional Labs: Microbiology 01/17/20 13:25 Nasal swab Influenza Types A,B Direct EIA - Final 01/17/20 11:37 Port - Left Subclavian Vein Blood Culture - Preliminary NO GROWTH AT 48 HOURS 01/17/20 11:27 Venous blood - Right Hand Blood Culture - Preliminary NO GROWTH AT 48 HOURS EKG Reviewed by me: Yes (Tele - SR with variable A-flutter) Hospitalist ROS - Medication Medications: Active Medications Generic Name Dose Route Start Last Admin Trade Name Freq PRN Reason Stop Dose Admin Acetaminophen 650 mg 03/12/20 01:53 01/18/20 02:17 Tylenol PO 650 mg Q4H PRN Administration Headache/Fever/Mild Pain (1-3) Albuterol/Ipratropium 3 ml 01/17/20 15:00 01/22/20 14:34 Duoneb NEB 3 ml [id number] LU Administration Amiodarone HCl 200 mg 01/19/20 21:00 01/22/20 08:22 Cordarone PO 200 mg TID LU Administration Aspirin 81 mg 01/18/20 09:00 01/22/20 08:22 Ecotrin PO 81 mg DAILY LU Administration Enoxaparin Sodium 40 mg 01/18/20 09:00 01/22/20 08:23 Lovenox SC 40 mg 0900 LU Administration Ferrous Sulfate 325 mg 01/17/20 17:00 01/22/20 08:23 Feosol PO 325 mg BID- LU Administration Cefepime HCl 1 gm/ Sodium 100 mls @ 200 mls/hr 01/17/20 23:59 01/22/20 11:56 Chloride IVPB 100 mls 1200,2359 LU Administration Sodium Chloride 1,000 mls @ 50 mls/hr 01/19/20 00:15 01/22/20 10:19 Normal Saline 0.9% IV 1,000 mls .Q20H LU Administration Vancomycin HCl 1 gm/ Device 200 mls @ 200 mls/hr 01/20/20 14:00 01/21/20 14: 23 IVPB 200 mls 1400 LU Administration Ipratropium [place] 2.5 ml 01/19/20 07:00 01/22/20 13:44 Atrovent NEB Not Given [id number] LU Lorazepam 1 mg 01/18/20 13:12 01/18/20 14:31 Ativan PO 1 mg Q8H PRN Administration Anxiety/Agitation Megestrol Acetate 40 mg 01/18/20 09:00 01/22/20 08:23 Megace PO 40 mg DAILY LU Administration Temazepam 15 mg 01/17/20 13:55 01/21/20 20:39 Restoril PO 15 mg HSPRN PRN Administration Insomnia - Exam General Appearance: NAD, awake alert Eye: PERRL, anicteric sclera ENT: normocephalic atraumatic, no oropharyngeal lesions Neck: supple, symmetric, no JVD, no thyromegaly, no lymphadenopathy Heart: RRR, no gallops, no rubs, normal peripheral pulses Heart - other findings: S1, S2 Respiratory: CTAB, no wheezes, no rales, no ronchi, normal chest expansion Gastrointestinal: soft, non-tender, non-distended, normal bowel sounds Extremities: no cyanosis, no clubbing, no edema Skin: normal turgor, no lesions Neurological: cranial nerve grossly intact, no new deficit Musculoskeletal: normal tone, generalized weakness Psychiatric: normal affect, oriented to person Hosp A/P (1) HCAP (healthcare-associated pneumonia) Code(s): J18.9 - PNEUMONIA, UNSPECIFIED ORGANISM Status: Acute Plan: Continue Cefepime/Vancomycin another 24h (2) New onset atrial fibrillation Code(s): I48.91 - UNSPECIFIED ATRIAL FIBRILLATION Status: Acute Plan: Variable A-flutter noted on monitor with rate-control, continue Amiodarone, EP consult pending (3) Lymphoma, T-cell Code(s): C85.90 - NON-HODGKIN LYMPHOMA, UNSPECIFIED, UNSPECIFIED SITE Status: Chronic Plan: Will resume outpt chemo per medical oncology (4) Anemia due to chemotherapy Code(s): D64.81 - ANEMIA DUE TO ANTINEOPLASTIC CHEMOTHERAPY; T45.1X5A - ADVERSE EFFECT OF ANTINEOPLASTIC AND IMMUNOSUP DRUGS, INIT Status: Acute Plan: Stable H/H trend (5) Thrombocytopenia Code(s): D69.6 - THROMBOCYTOPENIA, UNSPECIFIED Status: Chronic Plan: Stable currently - Plan continue antibiotics, PT/OT, psychosocial rehabilitation counselor, respiratory therapy, out of bed/ ambulate, DVT proph w/SCDs Stable currently Continue Cefepime/Vancomycin OOB with PT Continue Amiodarone Continue Megace/Ensure EP consult pending for consideration of A-flutter ablation
[2020-01-22 15:25] LABS: Vancomycin, Trough 11.8 ug/mL
[2020-01-22] MEDS: Vancomycin 1 GM in Premix Bag 1 BAG IVPB SCH (15:37)
[2020-01-22] MEDS: Vancomycin HCl 1.25 GM in Sodium Chloride 0.9% 250 ML 250 ML IVPB SCH (15:42)
--- NOTE | 2020-01-22 20:17 | CON ---
DATE OF CONSULTATION: 01/22/2020 ADDITIONAL REFERRING PHYSICIAN: Uriel Bee MD I am seeing Ms. 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 Her problems are, 1. Newly found atrial arrhythmias. a. Atrial fibrillation with rapid rate noted in the setting of pneumonia and sepsis. b. Amiodarone initiated and the patient converted to typical-appearing atrial flutter. c. Converts to sinus rhythm as noted. 2. History of lymphoma. 3. Current admission with community-acquired pneumonia/sepsis with negative blood cultures and negative A and B influenza. 4. History of peripheral vascular disease. 5. History of hyperlipidemia. ALLERGIES: NONE NOTED. MEDICATIONS: At home included, 1. Prednisone daily. 2. Restoril. 3. Megace. 4. Ferrous sulfate. 5. Calcium carbonate. 6. Aspirin. 7. Vitamins. SUBJECTIVE: Ms. Lopes was admitted on the 16 of January at this standpoint with weakness, cough, and heart racing sensation. Blood pressures reduced down to the 64 to 54 level. This was noted while she was undergoing rehab and she was transferred into our facility. Due to the low blood pressure, she was initiated on sepsis protocol. X-rays were positive for bilateral pleural effusions and infiltrate. Heart rates were initially 170. With diltiazem, she converted back to sinus rhythm. IV antibiotics were initiated. Blood cultures so far negative and she is negative for influenza A and B serologies. She was found to be also very anemic with a range of 7.7. She required multiple units of blood transfusions. Currently, she is feeling better. She denies any history of fever or chills. Not dyspneic. Denies palpitations, dizziness, or loss of consciousness. She cannot recall any palpitations even prior, though she was fairly sick at that time. She does not pass out. No stroke-like symptoms. No neurological deficits. No fever, chills, or cough. Rest of the 12-point review of systems is otherwise unremarkable. PAST MEDICAL HISTORY: As above. She denies prior history of heart disease or heart attacks. She does have history of peripheral vascular disease and T-cell lymphoma. She was hospitalized on the 20 of December with urinary tract infection. SOCIAL HISTORY: The patient denies smoking, EtOH, or drug abuse. She is in rehab and her daughter is helping with her medical decisions. FAMILY HISTORY: Not contributory. PHYSICAL EXAMINATION: VITAL SIGNS: Blood pressure is currently 137/63, heart rate 93, respiratory rate 16, temperature 97.8 degrees Fahrenheit. GENERAL: Alert and oriented woman, in no apparent distress. NECK: Supple. Jugular veins are not distended. CHEST: Coarse without crackles. HEART: Sounds are regular to rate and rhythm. No murmur or gallop. ABDOMEN: Benign. Bowel sounds positive. EXTREMITIES: Lower extremities without edema, clubbing, or cyanosis. Pulses are adequate. NEUROLOGIC: The patient is nonfocal. MUSCULOSKELETAL: Without joint swelling or deformity. SKIN: Without rash. DATABASE: EKG reviewed. Initial EKG revealed sinus rhythm on January 16 with rate of 96 beats per minute. Right bundle-branch block pattern seen. QTc is 482 milliseconds. Subsequent EKG revealed development of an atrial flutter, possibly isthmus dependent on January 16 with conversion back to sinus rhythm. Subsequently, she had continued recordings of atrial flutter noted, which appears to be typical isthmus dependent in morphology with typical, isthmus dependent type EKG pattern in the inferior leads. Probably telemetry strips are of good quality to assess typical or atypical nature of the atrial flutter. LABORATORY DATA: White cell count is 8.2, hemoglobin 10.2, platelet count is 94. INR 1.3. Sodium 138, potassium 3.5, BUN is 11, creatinine 0.65. Troponin I's are 0.022 and 0.03. ASSESSMENT AND PLAN: Ms. Lopes is a 74-year-old woman with history of T-cell lymphoma and vascular disease. Previous echocardiogram from January 15, 2017, revealing normal left ventricular ejection fraction and normal left atrial size. No significant valvular abnormality. She is now presenting with pneumonia and sepsis in the setting to develop atrial flutter. The flutter appears to be more recently typical isthmus dependent, but that it also runs on some of her EKG in the acute setting. At this time, irregular atypical flutter also could present at times. We discussed the etiology of her atrial flutter with her. At this point, she has converted back to sinus rhythm and continued amiodarone taper is advised. She may benefit from continued anticoagulation as well as her advanced age and gender with peripheral vascular disease. Her CHADS-VASc score is elevated at 4. Should the atrial flutter frequently recurs, consideration for cavotricuspid isthmus ablation could be made. From behind, especially on the current frail state, she is likely a poor candidate for pulmonary venous isolation procedure. We will continue to monitor with you. Continue amiodarone. Monitor for QT prolongation. We will follow up with you as well. Job ID: [id number] RAYO
[2020-01-22] MEDS: Temazepam 15 MG CAP PO PRN (20:38)
[2020-01-23] MEDS: Ipratropium Bromide 2.5 ml Neb NEB SCH ×4 (00:03→18:36)
[2020-01-23] MEDS: Cefepime 1 GM in Sodium Chloride 0.9% 100 ML IVPB SCH ×2 (00:33→11:46)
[2020-01-23] MEDS: Ferrous Sulfate 325 MG TAB PO SCH ×2 (08:40→15:55)
[2020-01-23] MEDS: Amiodarone 200 MG TAB PO SCH ×3 (08:40→20:11)
[2020-01-23] MEDS: Aspirin 81 mg Enteric Coated Tablet PO SCH (08:41)
[2020-01-23] MEDS: Enoxaparin Sodium 40 MG/0.4 ML SYRINGE SC SCH (08:41)
[2020-01-23] MEDS: Megestrol Acetate 40 MG TAB PO SCH (08:41)
--- NOTE | 2020-01-23 10:27 | PDOC.HOSPP ---
- Subjective Encounter Date: 01/23/20 Encounter Time: 10:15 Subjective: f/u for A-flutter/fib on Amiodarone with intermittent SR/A-flutter. States feeling ok but weak. Tolerated po intake this am. - Objective Vital Signs & Weight: Vital Signs (12 hours) Temp Pulse Resp BP Pulse Ox 01/23/20 07:31 80 14 01/23/20 07:24 98.1 F 77 16 170/82 H 100 01/23/20 04:00 97.4 F L 87 16 142/73 H 100 01/22/20 23:46 88 16 Weight Admit Weight 130 lb 4.691 oz Weight 125 lb 10.616 oz Most Recent Monitor Data Heart Rate from ECG 104 NIBP 152/63 NIBP BP-Mean 92 Respiration from ECG 22 SpO2 79 I&O: 01/22/20 01/23/20 01/24/20 06:59 06:59 06:59 Intake Total 590 600 Output Total 1150 750 Balance -560 -150 Result Diagrams: 01/22/20 06:17 01/22/20 06:17 Additional Labs: Microbiology 01/17/20 13:25 Nasal swab Influenza Types A,B Direct EIA - Final 01/17/20 11:37 Port - Left Subclavian Vein Blood Culture - Preliminary NO GROWTH AT 48 HOURS 01/17/20 11:27 Venous blood - Right Hand Blood Culture - Preliminary NO GROWTH AT 48 HOURS EKG Reviewed by me: Yes (Tele - A-flutter in 80's) Hospitalist ROS - Medication Medications: Active Medications Generic Name Dose Route Start Last Admin Trade Name Freq PRN Reason Stop Dose Admin Acetaminophen 650 mg 01/18/20 01:53 01/18/20 02:17 Tylenol PO 650 mg Q4H PRN Administration Headache/Fever/Mild Pain (1-3) Amiodarone HCl 200 mg 01/19/20 21:00 01/23/20 08:40 Cordarone PO 200 mg TID LU Administration Aspirin 81 mg 01/18/20 09:00 01/23/20 08:41 Ecotrin PO 81 mg DAILY LU Administration Enoxaparin Sodium 40 mg 01/18/20 09:00 01/23/20 08:41 Lovenox SC 40 mg 0900 LU Administration Ferrous Sulfate 325 mg 01/17/20 17:00 01/23/20 08:40 Feosol PO 325 mg BID-WM LU Administration Cefepime HCl 1 gm/ Sodium 100 mls @ 200 mls/hr 01/17/20 23:59 01/23/20 00:33 Chloride IVPB 100 mls 1200,2359 LU Administration Vancomycin HCl 1.25 gm/ Sodium 250 mls @ 166.667 mls/hr 01/22/20 16:00 15:42 Chloride IVPB 250 mls 1600 LU Administration Ipratropium [place] 2.5 ml 01/19/20 07:00 01/23/20 07:31 Atrovent NEB 2.5 ml [id number] LU Administration Lorazepam 1 mg 01/18/20 13:12 01/18/20 14:31 Ativan PO 1 mg Q8H PRN Administration Anxiety/Agitation Megestrol Acetate 40 mg 01/18/20 09:00 01/23/20 08:41 Megace PO 40 mg DAILY LU Administration Temazepam 15 mg 01/17/20 13:55 01/22/20 20:38 Restoril PO 15 mg HSPRN PRN Administration Insomnia - Exam General Appearance: NAD, awake alert Eye: PERRL, anicteric sclera ENT: normocephalic atraumatic, no oropharyngeal lesions Neck: supple, symmetric, no JVD, no thyromegaly Heart: no gallops, no rubs, normal peripheral pulses, irregular Heart - other findings: S1, S2 Respiratory: tachypneic Respiratory - other findings: diminished in bases Gastrointestinal: soft, non-tender, non-distended, normal bowel sounds, no palpable masses Extremities: no cyanosis, no clubbing, no edema Skin: normal turgor, no lesions Neurological: cranial nerve grossly intact, no new deficit Musculoskeletal: normal tone, generalized weakness Psychiatric: normal affect, A&O x 3 Hosp A/P (1) HCAP (healthcare-associated pneumonia) Code(s): J18.9 - PNEUMONIA, UNSPECIFIED ORGANISM Status: Acute Plan: Continue Cefepime/Vancomycin another 24h then convert to po option (2) New onset atrial fibrillation Code(s): I48.91 - UNSPECIFIED ATRIAL FIBRILLATION Status: Acute Plan: Intermittent with A-flutter on Amiodarone and rate-variable, likely will need ablation given high risk for anticoagulation given lymphoma with chemotherapy and anemia/thrombocytopenia at baseline (3) Lymphoma, T-cell Code(s): C85.90 - NON-HODGKIN LYMPHOMA, UNSPECIFIED, UNSPECIFIED SITE Status: Chronic Plan: Chemotherapy per medical oncology service (4) Anemia due to chemotherapy Code(s): D64.81 - ANEMIA DUE TO ANTINEOPLASTIC CHEMOTHERAPY; T45.1X5A - ADVERSE EFFECT OF ANTINEOPLASTIC AND IMMUNOSUP DRUGS, INIT Status: Acute Plan: s/p 2u PRBC's on 01/18/20 (5) Thrombocytopenia Code(s): D69.6 - THROMBOCYTOPENIA, UNSPECIFIED Status: Chronic - Plan continue antibiotics, PT/OT, social contact worker, respiratory therapy, out of bed/ ambulate, DVT proph w/SCDs Stable currently Continue Cefepime/Vancomycin another 24h then convert to po option OOB with PT Continue Amiodarone Appreciate EP assistance, likely will need ablation given high risk for anticoagulation Continue Megace/Ensure AM lab: CBC, stool guaiac
--- NOTE | 2020-01-23 12:56 | PDOC.PALCO ---
Palliative Care Consult - Consult Details Requesting Physician: Dr Ann Reason for Consult: goals of care, advance directives assistance, family support Family Members Present: Daughter Courtney - Pertinent HPI 74 year old female patient of Dr Alvarez who has T-cell lymphoma. She was undergoing chemo and had an hypotensive episode with tachycardia, cough and shortness of breath. Transferred to the emergency room for further evaluation. Admitted for sepsis/pneumonia, anemia, new onset of atrial fib. She had recently been discharged from the hospital and transitioned to rehab to gain strength. - Pertinent PMH T-cell lymphoma, HDL, PVD, new onset of Atrial Fib - Social History Smoking Status: Current every day smoker Alcohol Use: none Drug Use History: none Living Situation: other (home with recent stay at rehab) - Medications MAR Reviewed: Yes - Allergies Allergies/Adverse Reactions: Allergies Allergy/AdvReac Type Severity Reaction Status Date / Time No Known Allergies Allergy Verified 01/17/20 19:22 - Subjective Awake, alert. Denies complaints other than weakness to lower extremities and intermittent "flutter" of her heart. Daughter at bedside. - ROS Constitutional: alert, weakness ENT: other (negative for dry mucous membranes, difficulity swallowing, congestion) Respiratory: shortness of breath with extertion Cardiology: other (negative for chest pain) Gastrointestinal: other (denies constipation, diarrhea, nausea) Genitourinary: other (denies dysuria, frequency) Musculoskeletal: arthritis/arthralgias Skin: other (denies rash, lesions, puritis) Psychological: other (denies depression, anxiety) - Objective Vital Signs: Vital Signs - Most Recent Temp Pulse Resp BP Pulse Ox 98.0 F 76 16 133/62 99 01/23/20 11:37 01/23/20 11:37 01/23/20 11:37 01/23/20 11:37 01/23/20 11:37 Palliative Performance Scale: 40 - Physical Exam Constitutional: NAD, ill appearing HEENT: EOMI, moist MMs, sclera anicteric Respiratory: no wheezing, diminished lung sound Cardiovascular: RRR Gastrointestinal: soft, non-tender, no distention, positive bowel sounds Genitourinary: incontinent Musculoskeletal: no cyanosis, no clubbing Neurology: moves all 4 limbs Skin: cap refill <2 seconds, no lesions, no rash Psychiatric: A&O x 3, normal affect - Problem List (1) Palliative care encounter Code(s): Z51.5 - ENCOUNTER FOR PALLIATIVE CARE Current Visit: Yes Status: Acute (2) Physical deconditioning Code(s): R53.81 - OTHER MALAISE Current Visit: Yes Status: Acute (3) Anemia due to chemotherapy Code(s): D64.81 - ANEMIA DUE TO ANTINEOPLASTIC CHEMOTHERAPY; T45.1X5A - ADVERSE EFFECT OF ANTINEOPLASTIC AND IMMUNOSUP DRUGS, INIT Current Visit: Yes Status : Acute (4) New onset atrial fibrillation Code(s): I48.91 - UNSPECIFIED ATRIAL FIBRILLATION Current Visit: Yes Status : Acute (5) Anemia Code(s): D64.9 - ANEMIA, UNSPECIFIED Current Visit: No Status: Acute (6) Lymphoma, T-cell Code(s): C85.90 - NON-HODGKIN LYMPHOMA, UNSPECIFIED, UNSPECIFIED SITE Current Visit: No Status: Chronic (7) Thrombocytopenia Code(s): D69.6 - THROMBOCYTOPENIA, UNSPECIFIED Current Visit: No Status: Chronic - Plan/Recommendations Plan: Goal is to return to rehab to gain strength and continue with chemo with Dr Alvarez Patient and daughter wanting to speak with cardiology to discuss options to treat atrial fib. Communicated with Dr White and Dr Guerrero, Dr Guerrero confirmed he will follow up with patient and daughter. Intermittent poor appetite related to altered taste after chemo. Discussed avoiding hot foods, oral care, and small meals. Will place order to resubmit for rehab at discharge. [60] minutes spent on this encounter with >50% of the time in counseling and coordination of care. Thank you for this very appropriate consult.
--- NOTE | 2020-01-23 15:35 | PDOC.EP ---
- Subjective Date: 01/23/20 Time: 15:35 Interval History: Continues to recover/be treated for recent pneumonia/sepsis.Back in atrial flutter despite amiodarone. - Review of Systems Constitutional: reports: weakness. denies: chills, fever, malaise Respiratory: reports: cough, shortness of breath. denies: hemoptysis, pleuritic pain Cardiology: denies: chest pain, edema, heart racing, light headedness, passing out Gastrointestinal: denies: abdominal pain, constipation, diarrhea - Objective Allergies/Adverse Reactions: Allergies Allergy/AdvReac Type Severity Reaction Status Date / Time No Known Allergies Allergy Verified 01/17/20 19:22 Current Medications Acetaminophen (Tylenol) 650 mg [place] Q4H PRN PRN Reason: Headache/Fever/Mild Pain (1-3) Acetaminophen (Tylenol) 650 mg PO Q4H PRN PRN Reason: Headache/Fever/Mild Pain (1-3) Last Admin: 01/18/20 02:17 Dose: 650 mg Amiodarone HCl (Cordarone) 200 mg PO TID [facility] Last Admin: 01/23/20 08:40 Dose: 200 mg Aspirin (Ecotrin) 81 mg PO DAILY [facility] Last Admin: 01/23/20 08:41 Dose: 81 mg Calcium Carbonate (Tums) 1,000 mg PO Q4H PRN PRN Reason: Heartburn or Indigestion Enoxaparin Sodium (Lovenox) 40 mg SC 0900 [facility] Last Admin: 01/23/20 08:41 Dose: 40 mg Ferrous Sulfate (Feosol) 325 mg PO BID-WM [facility] Last Admin: 01/23/20 08:40 Dose: 325 mg Guaifenesin (Organ-I Nr) 200 mg PO Q4H PRN PRN Reason: Cough Cefepime HCl 1 gm/ Sodium (Chloride) 100 mls @ 200 mls/hr IVPB 1200,2359 [facility] Last Admin: 01/23/20 11:46 Dose: 100 mls Vancomycin HCl 1.25 gm/ Sodium (Chloride) 250 mls @ 166.667 mls/hr IVPB 1600 [facility] Last Admin: 01/22/20 15:42 Dose: 250 mls Ipratropium [place] (Atrovent) 2.5 ml NEB [id number] [facility] Last Admin: 01/23/20 13:46 Dose: 2.5 ml Loperamide HCl (Imodium) 2 mg PO Q6H PRN PRN Reason: Diarrhea/Loose Stools Lorazepam (Ativan) 1 mg PO Q8H PRN PRN Reason: Anxiety/Agitation Last Admin: 01/18/20 14:31 Dose: 1 mg Megestrol Acetate (Megace) 40 mg PO DAILY LU Last Admin: 01/23/20 08:41 Dose: 40 mg Miscellaneous Medication (Pharmacy To Dose) 1 each IVPB PRN PRN PRN Reason: Pharmacy to dose Senna/Docusate Sodium (Senokot S) 2 tab PO BID PRN PRN Reason: Constipation Temazepam (Restoril) 15 mg PO HSPRN PRN PRN Reason: Insomnia Last Admin: 01/22/20 20:38 Dose: 15 mg Vital Signs & Weight: Vital Signs Temp Pulse Pulse Resp BP BP Pulse Ox 01/23/20 14:08 88 109/69 01/23/20 13:46 80 14 01/23/20 11:37 98.0 F 76 16 133/62 99 01/23/20 07:31 80 14 01/23/20 07:24 98.1 F 77 16 170/82 H 100 01/23/20 04:00 97.4 F L 87 16 142/73 H 100 Admit Weight 130 lb 4.691 oz Weight 125 lb 10.616 oz I/O: I/O 01/22/20 01/23/20 01/24/20 06:59 06:59 06:59 Intake Total 590 600 Output Total 1150 750 Balance -560 -150 - Physical Exam General: alert & oriented x3, appears well, no apparent distress, speech clear, affect appropriate Neck: supple neck, midline trachea, no JVD/HJR, no masses, no bruit, no lymphadenopathy, no thromegaly Cardiology: no murmur, regular rate, irregularly irregular Lungs: clear to auscultation, normal breath sounds, no wheeze, rales, rhonchi Neurology: cranial nerve 2-12 intact, sensory function intact, no lateralizing findings Abdomen: unremarkable, active bowel sounds, no pulsations/bruits Extremities: dry, strong pulses, warm - Chadsvasc Risk factors Age >75: 2 Female: 1 Risk Score: 3 - Labs Result Diagrams: 01/22/20 06:17 01/22/20 06:17 - Assessment/Plan Assessment/Plan: 1. Newly found atrial arrhythmias. a. Atrial fibrillation with rapid rate noted in the setting of pneumonia and sepsis. b. Amiodarone initiated and the patient converted to typical-appearing atrial flutter. c. Briefly in SR on 01/21 2. History of lymphoma. 3. Current admission with community-acquired pneumonia/sepsis with negative blood cultures and negative A and B influenza. 4. History of peripheral vascular disease. 5. History of hyperlipidemia. 6. Anemia - no acute bleeding seen -concerning with prospect of chronic OAC Remains in rate controlled Atrial flutter, appears CTI dependent. OAC is indicated but with her anemia there is concern initiating this therapy. She is tolerating low dose lovenox. Given her frail medical status and poor condition overall, she is a poor candidate for PVAI. 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 Ideally this would be performed with OAC x30 days post ablation but it carries a significantly lower risk of stroke, being a right atrial ablation. I discussed this with Dr Ignacio and the patients daughter as well. We agreed to continue conservative measures with continued amidarone and low dose eliquis, possibly considering CTI later.
[2020-01-23] MEDS: Vancomycin HCl 1.25 GM in Sodium Chloride 0.9% 250 ML 250 ML IVPB SCH (15:55)
--- NOTE | 2020-01-23 16:42 | PDOC.MOPN ---
Interval History: Feels better. Sitting in chair. - Vital Signs Vital Signs: Vital Signs (12 hours) Temp Pulse Pulse Resp BP BP Pulse Ox 01/23/20 15:18 98.0 F 88 18 142/67 H 99 01/23/20 14:08 88 109/69 01/23/20 13:46 80 14 01/23/20 11:37 98.0 F 76 16 133/62 99 01/23/20 07:31 80 14 01/23/20 07:24 98.1 F 77 16 170/82 H 100 Weight Admit Weight 130 lb 4.691 oz Weight 125 lb 10.616 oz Most Recent Monitor Data Heart Rate from ECG 104 NIBP 152/63 NIBP BP-Mean 92 Respiration from ECG 22 SpO2 79 - Physical Exam General: Alert, Oriented x3, No acute distress HEENT: Atraumatic, PERRLA, EOMI, Mucous membr. moist/pink Lungs: Clear to auscultation, Normal air movement Cardiovascular: Regular rate, Normal S1, Normal S2, No murmurs, Gallops, Rubs Abdomen: Normal bowel sounds, Soft, No tenderness, No hepatospenomegaly, No masses Extremities: No clubbing, No cyanosis, No edema, Normal pulses, No tenderness/ swelling Skin: No rashes, No breakdown, No significant lesion Neurological: Normal gait, Normal speech, Strength at 5/5 X4 ext, Normal tone, Sensation intact, Cranial nerves 3-12 NL, Reflexes 2+ Psych/Mental Status: Mental status NL, Mood NL - Labs Result Diagrams: 01/22/20 06:17 01/22/20 06:17 Status: lab reviewed by me A/P - Problem (1) New onset atrial fibrillation Current Visit: Yes Code(s): I48.91 - UNSPECIFIED ATRIAL FIBRILLATION Status : Acute (2) Lymphoma, T-cell Current Visit: No Code(s): C85.90 - NON-HODGKIN LYMPHOMA, UNSPECIFIED, UNSPECIFIED SITE Status: Chronic - Plan Plan: Continue supportive care Follow-up with Dr. Alvarez once discharged.
[2020-01-23] MEDS: Lorazepam 1 MG TAB PO PRN (16:52)
[2020-01-23] MEDS ORDERED: Potassium Chloride 20 MEQ TAB PO SCH (17:15)
[2020-01-23] MEDS ORDERED: Furosemide 40 MG/4 ML VIAL SLOW IVP SCH (17:15)
[2020-01-23] MEDS: Temazepam 15 MG CAP PO PRN (20:11)
[2020-01-24] MEDS: Ipratropium Bromide 2.5 ml Neb NEB SCH ×4 (00:49→18:39)
[2020-01-24] MEDS: Cefepime 1 GM in Sodium Chloride 0.9% 100 ML IVPB SCH (01:06)
[2020-01-24 05:08] LABS: Band 24 % (5-11); Hemoglobin 9.9 g/dL (12.0-16.0); Lymphocytes 2 % (21-51); MDiff Complete? YES; Mean Corpuscular HGB CONC 33.5 g/dL (32.0-36.0); Mean Corpuscular Hemoglobin 30.6 pg (27.0-31.0); Mean Corpuscular Volume 91.1 fL (78.0-98.0); Mean Platelet Volume 7.9 fL (7.4-10.4); Neutrophil 74 % (42-75); Platelet Count 145 thou/uL (130-400); RBC Distribution Width 16.7 % (11.5-14.5); Red Blood Cell (RBC) Count 3.24 mill/uL (4.20-5.40); White Blood Cell (WBC) Count 12.2 thou/uL (4.8-10.8)
[2020-01-24] MEDS: Amiodarone 200 MG TAB PO SCH ×3 (08:54→20:13)
[2020-01-24] MEDS: Ferrous Sulfate 325 MG TAB PO SCH ×2 (08:54→16:14)
[2020-01-24] MEDS: Enoxaparin Sodium 40 MG/0.4 ML SYRINGE SC SCH (08:54)
[2020-01-24] MEDS: Aspirin 81 mg Enteric Coated Tablet PO SCH (08:54)
[2020-01-24] MEDS: Megestrol Acetate 40 MG TAB PO SCH (08:54)
--- NOTE | 2020-01-24 09:42 | PDOC.HOSPP ---
- Subjective Encounter Date: 01/24/20 Encounter Time: 09:25 Subjective: f/u A-flutter/fib on Amiodarone now SR. No new complaints currently. Plan for medical mgmt of A-flutter with low-dose Eliquis. - Objective Vital Signs & Weight: Vital Signs (12 hours) Temp Pulse Resp BP Pulse Ox 01/24/20 07:17 97.6 F 83 16 140/77 98 01/24/20 07:01 98 01/24/20 06:59 83 16 95 01/24/20 04:00 97.8 F 81 20 129/59 L 98 Weight Admit Weight 130 lb 4.691 oz Weight 129 lb 13.636 oz Most Recent Monitor Data Heart Rate from ECG 104 NIBP 152/63 NIBP BP-Mean 92 Respiration from ECG 22 SpO2 79 I&O: 01/23/20 01/24/20 01/25/20 06:59 06:59 06:59 Intake Total 600 1360 Output Total 750 700 Balance -150 660 Result Diagrams: 01/24/20 04:18 01/22/20 06:17 Additional Labs: Microbiology 01/17/20 13:25 Nasal swab Influenza Types A,B Direct EIA - Final 01/17/20 11:37 Port - Left Subclavian Vein Blood Culture - Preliminary NO GROWTH AT 48 HOURS 01/17/20 11:27 Venous blood - Right Hand Blood Culture - Preliminary NO GROWTH AT 48 HOURS EKG Reviewed by me: Yes (Tele - SR) Hospitalist ROS - Medication Medications: Active Medications Generic Name Dose Route Start Last Admin Trade Name Freq PRN Reason Stop Dose Admin Acetaminophen 650 mg 01/18/20 01:53 01/18/20 02:17 Tylenol PO 650 mg Q4H PRN Administration Headache/Fever/Mild Pain (1-3) Amiodarone HCl 200 mg 01/19/20 21:00 01/24/20 08:54 Cordarone PO 200 mg TID LU Administration Aspirin 81 mg 01/18/20 09:00 01/24/20 08:54 Ecotrin PO 81 mg DAILY LU Administration Enoxaparin Sodium 40 mg 01/18/20 09:00 01/24/20 08:54 Lovenox SC 40 mg 0900 LU Administration Ferrous Sulfate 325 mg 01/17/20 17:00 01/24/20 08:54 Feosol PO 325 mg BID-WM LU Administration Ipratropium [place] 2.5 ml 01/19/20 07:00 01/24/20 06:59 Atrovent NEB 2.5 ml [id number] LU Administration Lorazepam 1 mg 01/18/20 13:12 01/23/20 16:52 Ativan PO 1 mg Q8H PRN Administration Anxiety/Agitation Megestrol Acetate 40 mg 01/18/20 09:00 01/24/20 08:54 Megace PO 40 mg DAILY LU Administration Temazepam 15 mg 01/17/20 13:55 01/23/20 20:11 Restoril PO 15 mg HSPRN PRN Administration Insomnia - Exam General Appearance: NAD, awake alert Eye: PERRL, anicteric sclera ENT: normocephalic atraumatic, no oropharyngeal lesions Neck: supple, symmetric, no JVD, no thyromegaly Heart: RRR, no gallops, no rubs, normal peripheral pulses Respiratory: CTAB, no wheezes, no rales, no ronchi Gastrointestinal: soft, non-tender, non-distended, normal bowel sounds, no palpable masses Extremities: no cyanosis, no clubbing, no edema Skin: normal turgor, no lesions Neurological: cranial nerve grossly intact, no new deficit Musculoskeletal: normal tone, generalized weakness Psychiatric: normal affect, A&O x 3 Hosp A/P (1) HCAP (healthcare-associated pneumonia) Code(s): J18.9 - PNEUMONIA, UNSPECIFIED ORGANISM Status: Acute Plan: Start Omnicef 300mg BID, d/c Cefepime/Vancomycin (2) New onset atrial fibrillation Code(s): I48.91 - UNSPECIFIED ATRIAL FIBRILLATION Status: Acute Plan: Converted to SR, continue Amiodarone, Eliquis 2.5mg BID (3) Lymphoma, T-cell Code(s): C85.90 - NON-HODGKIN LYMPHOMA, UNSPECIFIED, UNSPECIFIED SITE Status: Chronic Plan: Outpt follow up with medical oncology for resumption of chemotherapy (4) Anemia due to chemotherapy Code(s): D64.81 - ANEMIA DUE TO ANTINEOPLASTIC CHEMOTHERAPY; T45.1X5A - ADVERSE EFFECT OF ANTINEOPLASTIC AND IMMUNOSUP DRUGS, INIT Status: Acute (5) Thrombocytopenia Code(s): D69.6 - THROMBOCYTOPENIA, UNSPECIFIED Status: Chronic - Plan continue antibiotics, PT/OT, social work supervisor, respiratory therapy, out of bed/ ambulate, DVT proph w/SCDs Stable currently Continue Cefepime/Vancomycin OOB with PT Continue Amiodarone Continue Megace/Ensure Low dose Eliquis for d/c CM for Rehab coordination AM lab: H/H
[2020-01-24] MEDS ORDERED: Cefdinir 300 MG CAP PO SCH (10:00)
--- NOTE | 2020-01-24 12:47 | PDOC.EP ---
- Subjective Date: 01/24/20 Time: 12:46 Interval History: follow up for atrial arrhythmias. + anxiety -palpitation, CP, CVA symptoms, nausea. - Review of Systems Constitutional: reports: weakness. denies: chills, fever, sweats Respiratory: denies: cough, dry, hemoptysis Cardiology: denies: chest pain, edema, heart racing, light headedness, passing out Gastrointestinal: denies: constipation, diarrhea, nausea, vomitting - Objective Allergies/Adverse Reactions: Allergies Allergy/AdvReac Type Severity Reaction Status Date / Time No Known Allergies Allergy Verified 01/17/20 19:22 Current Medications Acetaminophen (Tylenol) 650 mg [place] Q4H PRN PRN Reason: Headache/Fever/Mild Pain (1-3) Acetaminophen (Tylenol) 650 mg PO Q4H PRN PRN Reason: Headache/Fever/Mild Pain (1-3) Last Admin: 01/18/20 02:17 Dose: 650 mg Amiodarone HCl (Cordarone) 200 mg PO TID [facility] Last Admin: 01/24/20 08:54 Dose: 200 mg Apixaban (Eliquis) 2.5 mg PO BID [facility] Aspirin (Ecotrin) 81 mg PO DAILY [facility] Last Admin: 01/24/20 08:54 Dose: 81 mg Calcium Carbonate (Tums) 1,000 mg PO Q4H PRN PRN Reason: Heartburn or Indigestion Cefdinir (Omnicef) 300 mg PO BID [facility] Ferrous Sulfate (Feosol) 325 mg PO BID[facility] Last Admin: 01/24/20 08:54 Dose: 325 mg Guaifenesin (Organ-I Nr) 200 mg PO Q4H PRN PRN Reason: Cough Ipratropium [place] (Atrovent) 2.5 ml NEB [id number] [facility] Last Admin: 01/24/20 06:59 Dose: 2.5 ml Loperamide HCl (Imodium) 2 mg PO Q6H PRN PRN Reason: Diarrhea/Loose Stools Lorazepam (Ativan) 1 mg PO Q8H PRN PRN Reason: Anxiety/Agitation Last Admin: 01/23/20 16:52 Dose: 1 mg Megestrol Acetate (Megace) 40 mg PO DAILY [facility] Last Admin: 01/24/20 08:54 Dose: 40 mg Senna/Docusate Sodium (Senokot S) 2 tab PO BID PRN PRN Reason: Constipation Temazepam (Restoril) 15 mg PO HSPRN PRN PRN Reason: Insomnia Last Admin: 01/23/20 20:11 Dose: 15 mg Vital Signs & Weight: Vital Signs Temp Pulse Resp BP Pulse Ox 01/24/20 11:35 97.7 F 70 20 145/70 H 97 01/24/20 07:17 97.6 F 83 16 140/77 98 01/24/20 07:01 98 01/24/20 06:59 83 16 95 01/24/20 04:00 97.8 F 81 20 129/59 L 98 Admit Weight 130 lb 4.691 oz Weight 129 lb 13.636 oz I/O: I/O 01/23/20 01/24/20 01/25/20 06:59 06:59 06:59 Intake Total 600 1360 Output Total 750 700 Balance -150 660 - Quality Measures Condition: Atrial Fibrillation/Flutter (hx or current) CV meds: Eliquis: Yes - Physical Exam General: alert & oriented x3, appears well, no apparent distress, speech clear, affect appropriate HEENT: mucus membranes moist, normocephaly Neck: supple neck, midline trachea, no JVD/HJR, no masses, no bruit, no lymphadenopathy, no thromegaly Cardiology: regular rate and rhythm, no murmur, PMI nondisplaced Lungs: no wheeze, rales, rhonchi Neurology: cranial nerve 2-12 intact, sensory function intact, no lateralizing findings - Chadsvasc Risk factors Hypertension: 1 Age >75: 2 Vascular disease: 1 Female: 1 Risk Score: 5 - Labs Result Diagrams: 01/24/20 04:18 01/22/20 06:17 - EKG Interpretation EKG Method: Telemetry EKG shows: Sinus rhythm - Assessment/Plan Assessment/Plan: 1. Newly found atrial arrhythmias. a. Atrial fibrillation with rapid rate noted in the setting of pneumonia and sepsis. b. Amiodarone initiated and the patient converted to typical-appearing atrial flutter. 2. History of lymphoma. 3. Current admission with community-acquired pneumonia/sepsis with negative blood cultures and negative A and B influenza. 4. History of peripheral vascular disease. 5. History of hyperlipidemia. 6. Anemia - no acute bleeding seen - Starting low dose eliquis. Subtherapeutic dosing by guidelines. Given her frail medical status and poor condition overall, she is a poor candidate for PVAI. 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 Ideally this would be performed with OAC x30 days post ablation but it carries a significantly lower risk of stroke, being a right atrial ablation. I discussed this with Dr Ignacio and the patients daughter as well. We agreed to continue conservative measures with continued amidarone and low dose eliquis, possibly considering CTI later. Amiodarone loading continues and she is largely maintaining SR. May continue to have paroxysmal episodes of AF until loading is complete.
[2020-01-24 13:05] LABS: Hemoglobin 10.6 g/dL (12.0-16.0); Platelet Count 151 thou/uL (130-400)
[2020-01-24] MEDS: Apixaban 2.5 MG TAB PO SCH (20:13)
[2020-01-24] MEDS: Cefdinir 300 MG CAP PO SCH (20:13)
[2020-01-24] MEDS: Temazepam 15 MG CAP PO PRN (20:13)
[2020-01-25] MEDS: Ipratropium Bromide 2.5 ml Neb NEB SCH ×4 (00:13→19:32)
[2020-01-25 05:06] LABS: Hemoglobin 9.5 g/dL (12.0-16.0); Platelet Count 152 thou/uL (130-400)
[2020-01-25] MEDS: Ferrous Sulfate 325 MG TAB PO SCH ×2 (09:02→17:39)
[2020-01-25] MEDS: Aspirin 81 mg Enteric Coated Tablet PO SCH (09:02)
[2020-01-25] MEDS: Apixaban 2.5 MG TAB PO SCH ×2 (09:02→20:21)
[2020-01-25] MEDS: Amiodarone 200 MG TAB PO SCH ×3 (09:02→20:20)
[2020-01-25] MEDS: Megestrol Acetate 40 MG TAB PO SCH (09:03)
[2020-01-25] MEDS: Cefdinir 300 MG CAP PO SCH ×2 (09:03→20:21)
[2020-01-25 09:49] VITALS: BMI 23.7
--- NOTE | 2020-01-25 12:24 | PDOC.HOSPP ---
- Subjective Encounter Date: 01/25/20 Encounter Time: 12:20 Subjective: f/u for A-flutter with variable rate on Amiodarone 200mg TID. States some cough and mucus in the throat. No fever or chills. Overall feels better. - Objective Vital Signs & Weight: Vital Signs (12 hours) Temp Pulse Pulse Pulse Resp BP BP 01/25/20 11:00 70 68 163/74 H 144/66 H 01/25/20 08:14 97.6 F 86 19 01/25/20 06:55 01/25/20 06:52 78 16 01/25/20 03:19 98 F 77 21 H BP BP Pulse Ox 01/25/20 11:00 01/25/20 08:14 129/61 96 01/25/20 06:55 98 01/25/20 06:52 97 01/25/20 03:19 132/62 94 L Weight Admit Weight 130 lb 4.691 oz Weight 129 lb 13.632 oz Most Recent Monitor Data Heart Rate from ECG 104 NIBP 152/63 NIBP BP-Mean 92 Respiration from ECG 22 SpO2 79 I&O: 01/24/20 01/25/20 01/26/20 06:59 06:59 06:59 Intake Total 1360 540 Output Total 700 1000 Balance 660 -460 Result Diagrams: 01/25/20 04:35 01/24/20 12:44 Additional Labs: Microbiology 01/17/20 13:25 Nasal swab Influenza Types A,B Direct EIA - Final 01/17/20 11:37 Port - Left Subclavian Vein Blood Culture - Preliminary NO GROWTH AT 48 HOURS 01/17/20 11:27 Venous blood - Right Hand Blood Culture - Preliminary NO GROWTH AT 48 HOURS EKG Reviewed by me: Yes (Tele - A-flutter in 70's, 3 sec pause when coughing) Hospitalist ROS - Medication Medications: Active Medications Generic Name Dose Route Start Last Admin Trade Name Freq PRN Reason Stop Dose Admin Acetaminophen 650 mg 01/18/20 01:53 01/18/20 02:17 Tylenol PO 650 mg Q4H PRN Administration Headache/Fever/Mild Pain (1-3) Amiodarone HCl 200 mg 01/19/20 21:00 01/25/20 09:02 Cordarone PO 200 mg TID [facility] Administration Apixaban 2.5 mg 01/24/20 21:00 01/25/20 09:02 Eliquis PO 2.5 mg BID [facility] Administration Aspirin 81 mg 01/18/20 09:00 01/25/20 09:02 Ecotrin PO 81 mg DAILY [facility] Administration Cefdinir 300 mg 01/24/20 21:00 01/25/20 09:03 Omnicef PO 300 mg BID [facility] Administration Ferrous Sulfate 325 mg 01/17/20 17:00 01/25/20 09:02 Feosol PO 325 mg BID-[facility] Administration Ipratropium [place] 2.5 ml 01/19/20 07:00 01/25/20 06:52 Atrovent NEB 2.5 ml [id number] LU Administration Lorazepam 1 mg 01/18/20 13:12 01/23/20 16:52 Ativan PO 1 mg Q8H PRN Administration Anxiety/Agitation Megestrol Acetate 40 mg 01/18/20 09:00 01/25/20 09:03 Megace PO 40 mg DAILY [facility] Administration Temazepam 15 mg 01/17/20 13:55 01/24/20 20:13 Restoril PO 15 mg HSPRN PRN Administration Insomnia - Exam General Appearance: NAD, awake alert Eye: PERRL, anicteric sclera ENT: normocephalic atraumatic, no oropharyngeal lesions Neck: supple, symmetric, no JVD, no thyromegaly Heart: no murmur, no gallops, no rubs, normal peripheral pulses, irregular Respiratory: no wheezes, no rales, no tachypnea Respiratory - other findings: few rhonchi o/w clear Gastrointestinal: soft, non-tender, non-distended, normal bowel sounds, no palpable masses Extremities: no cyanosis, no clubbing, no edema Skin: normal turgor, no lesions Neurological: cranial nerve grossly intact, no new deficit Musculoskeletal: normal tone, generalized weakness Psychiatric: oriented to person, oriented to place Hosp A/P (1) HCAP (healthcare-associated pneumonia) Code(s): J18.9 - PNEUMONIA, UNSPECIFIED ORGANISM Status: Acute Plan: Improving, continue Omnicef (2) New onset atrial fibrillation Code(s): I48.91 - UNSPECIFIED ATRIAL FIBRILLATION Status: Acute Plan: A-flutter noted on tele, continue Amiodarone 200mg TID, Eliquis 2.5mg BID (3) Lymphoma, T-cell Code(s): C85.90 - NON-HODGKIN LYMPHOMA, UNSPECIFIED, UNSPECIFIED SITE Status: Chronic (4) Anemia due to chemotherapy Code(s): D64.81 - ANEMIA DUE TO ANTINEOPLASTIC CHEMOTHERAPY; T45.1X5A - ADVERSE EFFECT OF ANTINEOPLASTIC AND IMMUNOSUP DRUGS, INIT Status: Acute (5) Thrombocytopenia Code(s): D69.6 - THROMBOCYTOPENIA, UNSPECIFIED Status: Chronic - Plan plan discussed w/ family, continue antibiotics, PT/OT, rn social services, respiratory therapy, out of bed/ambulate, DVT proph w/SCDs Stable currently Continue Omnicef OOB with PT Continue Amiodarone 200mg TID load Continue Megace/Ensure Low dose Eliquis 2.5mg BID due to co-morbid status, anemia, falls CM for Rehab coordination AM lab: H/H
[2020-01-25] MEDS ORDERED: guaiFENesin 100 MG/5 ML UDCUP PO PRN (12:28)
[2020-01-25] MEDS ORDERED: Diabetic Tussin 200 MG/10 ML UDCUP PO PRN (14:50)
--- NOTE | 2020-01-25 15:13 | PDOC.EP ---
- Subjective Date: 01/25/20 Time: 15:12 Interval History: follow up for atrial fibrillation/flutter - Review of Systems Constitutional: denies: chills, fever, malaise, sweats, weakness, other Respiratory: denies: cough, dry, hemoptysis, pleuritic pain, shortness of breath Cardiology: denies: chest pain, edema, heart racing, light headedness Gastrointestinal: denies: abdominal pain, constipation, diarrhea - Objective Allergies/Adverse Reactions: Allergies Allergy/AdvReac Type Severity Reaction Status Date / Time No Known Allergies Allergy Verified 01/17/20 19:22 Current Medications Acetaminophen (Tylenol) 650 mg [place] Q4H PRN PRN Reason: Headache/Fever/Mild Pain (1-3) Acetaminophen (Tylenol) 650 mg PO Q4H PRN PRN Reason: Headache/Fever/Mild Pain (1-3) Last Admin: 01/18/20 02:17 Dose: 650 mg Amiodarone HCl (Cordarone) 200 mg PO TID [facility] Last Admin: 01/25/20 09:02 Dose: 200 mg Apixaban (Eliquis) 2.5 mg PO BID [facility] Last Admin: 01/25/20 09:02 Dose: 2.5 mg Aspirin (Ecotrin) 81 mg PO DAILY [facility] Last Admin: 01/25/20 09:02 Dose: 81 mg Calcium Carbonate (Tums) 1,000 mg PO Q4H PRN PRN Reason: Heartburn or Indigestion Cefdinir (Omnicef) 300 mg PO BID [facility] Last Admin: 01/25/20 09:03 Dose: 300 mg Ferrous Sulfate (Feosol) 325 mg PO BID[facility] Last Admin: 01/25/20 09:02 Dose: 325 mg Guaifenesin (Organ-I Nr) 200 mg PO Q4H PRN PRN Reason: Cough Guaifenesin (Robitussin Sf) 200 mg PO Q4H PRN PRN Reason: Cough Ipratropium [place] (Atrovent) 2.5 ml NEB [id number] [facility] Last Admin: 01/25/20 12:46 Dose: 2.5 ml Loperamide HCl (Imodium) 2 mg PO Q6H PRN PRN Reason: Diarrhea/Loose Stools Lorazepam (Ativan) 1 mg PO Q8H PRN PRN Reason: Anxiety/Agitation Last Admin: 01/23/20 16:52 Dose: 1 mg Megestrol Acetate (Megace) 40 mg PO DAILY [facility] Last Admin: 01/25/20 09:03 Dose: 40 mg Senna/Docusate Sodium (Senokot S) 2 tab PO BID PRN PRN Reason: Constipation Temazepam (Restoril) 15 mg PO HSPRN PRN PRN Reason: Insomnia Last Admin: 01/24/20 20:13 Dose: 15 mg Vital Signs & Weight: Vital Signs Temp Pulse Pulse Pulse Resp BP BP 01/25/20 12:46 69 16 01/25/20 12:05 96.6 F L 68 16 01/25/20 11:00 70 68 163/74 H 144/66 H 01/25/20 08:14 97.6 F 86 19 01/25/20 06:55 01/25/20 06:52 78 16 01/25/20 03:19 98 F 77 21 H BP BP Pulse Ox 01/25/20 12:46 99 01/25/20 12:05 141/63 H 100 01/25/20 11:00 01/25/20 08:14 129/61 96 01/25/20 06:55 98 01/25/20 06:52 97 01/25/20 03:19 132/62 94 L Admit Weight 130 lb 4.691 oz Weight 129 lb 13.632 oz I/O: I/O 01/24/20 01/25/20 01/26/20 06:59 06:59 06:59 Intake Total 1360 540 Output Total 700 1000 Balance 660 -460 - Quality Measures Condition: Atrial Fibrillation/Flutter (hx or current) CV meds: Eliquis: Yes - Physical Exam General: alert & oriented x3, appears well, no apparent distress HEENT: mucus membranes moist, normocephaly Neck: supple neck, midline trachea, no JVD/HJR Cardiology: regular rate and rhythm, no murmur, regular rate Lungs: clear to auscultation, normal breath sounds, no rhonchi Neurology: cranial nerve 2-12 intact, grossly intact, coordination normal Abdomen: unremarkable, active bowel sounds, HJR negative - Labs Result Diagrams: 01/25/20 04:35 01/24/20 12:44 - EKG Interpretation EKG Method: Telemetry EKG shows: Sinus rhythm - Assessment/Plan Assessment/Plan: 1. Newly found atrial arrhythmias. a. Atrial fibrillation with rapid rate noted in the setting of pneumonia and sepsis. b. Amiodarone initiated and the patient converted to typical-appearing atrial flutter. 2. History of lymphoma. 3. Current admission with community-acquired pneumonia/sepsis with negative blood cultures and negative A and B influenza. 4. History of peripheral vascular disease. 5. History of hyperlipidemia. 6. Anemia - no acute bleeding seen Starting low dose eliquis for low weight. Given her frail medical status and poor condition overall, she is a poor candidate for PVAI. 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 Ideally this would be performed with OAC x30 days post ablation but it carries a significantly lower risk of stroke, being a right atrial ablation. I discussed this with Dr Ignacio and the patients daughter as well. We agreed to continue conservative measures with continued amidarone and low dose eliquis, possibly considering CTI later. Amiodarone loading continues and she is largely maintaining SR. May continue to have paroxysmal episodes of AF until loading is complete. OK for DC by EP.
[2020-01-25] MEDS: Temazepam 15 MG CAP PO PRN (20:21)
[2020-01-26] MEDS: Ipratropium Bromide 2.5 ml Neb NEB SCH ×2 (00:15→07:10)
[2020-01-26 07:36] VITALS: BP 168/77; TEMP 98
[2020-01-26] MEDS: Ferrous Sulfate 325 MG TAB PO SCH (08:35)
[2020-01-26] MEDS: Apixaban 2.5 MG TAB PO SCH (08:36)
[2020-01-26] MEDS: Aspirin 81 mg Enteric Coated Tablet PO SCH (08:36)
[2020-01-26] MEDS: Cefdinir 300 MG CAP PO SCH (08:36)
[2020-01-26] MEDS: Megestrol Acetate 40 MG TAB PO SCH (08:36)
[2020-01-26] MEDS: Amiodarone 200 MG TAB PO SCH (08:36)
--- NOTE | 2020-01-26 10:41 | DIS ---
DATE OF ADMISSION: 01/17/2020 DATE OF DISCHARGE: 01/26/2020 DISCHARGE DIAGNOSES: 1. Healthcare-associated pneumonia suspected gram-positive organisms, improved. 2. New-onset atrial fibrillation/atrial flutter with current sinus mechanism. 3. T-cell lymphoma with current chemotherapy. 4. Anemia secondary to chemotherapy, status post 2 units of packed red blood cells. 5. Thrombocytopenia, chronic. 6. Chronic anticoagulation with low-dose Eliquis secondary to #2. 7. Deconditioning. CONSULTATIONS: 1. Dr. Guerrero with Electrophysiology Service. 2. Dr. Bee and Dr. Miller with Cardiology Service. 3. Dr. Glass with Pulmonology Critical Care Service. PERTINENT LABORATORY AND X-RAY FINDINGS: Sodium ranged between 130 to 138, magnesium 1.8. Troponin I ranged between 0.010 to 0.030. BNP 422, previously noted 258 on 01/07/2020. TSH 3.9. CBC showed a white blood cell count ranging between 6.9 to 12.2, hemoglobin ranged between 6.7 to 10.9, platelet count ranged between 48 to 152. Blood cultures x2 dated 01/17/2020, showed no growth at 5 days. Influenza A and B antigen dated 01/17/2020, negative. Stool Hemoccult dated 01/23/2020, negative. Portable chest x-ray dated 01/17/2020, showed bilateral pleural effusions. CT angiogram of the chest dated 01/17/2020, showed no evidence for pulmonary embolus. Large right and moderate left pleural effusion. Occluded left subclavian artery. Abdominal radiographs dated 01/18/2020 showed weighted feeding tube with the tip over the gastric body. 2D transthoracic echocardiogram dated 01/18/2020, showed ejection fraction 55% to 60%. Technically limited study. HOSPITAL COURSE: The patient was initially admitted after presenting from acute inpatient rehabilitation with shortness of breath with workup revealing atrial fibrillation with rapid ventricular response with associated hypotension. The patient was initially placed on a Cardizem infusion and given IV fluid resuscitation. The patient also with significant history of T-cell lymphoma, undergoing recent chemotherapy with associated anemia secondary to chemotherapy. The patient was typed and crossed and received 2 units of packed red blood cells in addition to cardiac evaluation. The patient was also treated with broad-spectrum IV antibiotic therapy with vancomycin and cefepime after initial concern for sepsis syndrome. The patient was noted with bilateral pleural effusions, likely secondary to recent chemotherapy and T-cell lymphoma. The patient was evaluated by the Cardiology Service, undergoing 2D transthoracic echocardiogram showing overall preserved ejection fraction of 55% to 60%. The patient was evaluated by the Electrophysiology Service due to the atrial fibrillation/flutter with recommendations for rhythm control and placed on amiodarone. The patient's rate was improved and converted to sinus mechanism. Discussions regarding ablation therapy versus conservative medical management were entertained; however, given patient's overall comorbid status current rhythm control with amiodarone and ongoing chemotherapy for T-cell lymphoma, the patient was deemed appropriate candidate for medical management at this time. The patient was initiated on low-dose anticoagulation with Lovenox, transitioning to Eliquis. Overall, the patient did remain clinically stable during the hospital course with stable vital signs at the time of discharge. I have examined the patient at the time of discharge and discussed followup instructions with the patient and her daughter. The patient agrees with current discharge plan and ready for discharge on 01/26/2020. DISCHARGE MEDICATIONS: 1. Enteric-coated aspirin 81 mg p.o. daily. 2. Dulcolax 10 mg per rectum daily p.r.n. 3. Lactobacillus one tablet p.o. at bedtime. 4. Protonix 40 mg p.o. at bedtime. 5. Tylenol No. 3, 300 mg/30 mg one tablet p.o. q.6 hours p.r.n. pain. 6. Amiodarone 200 mg p.o. t.i.d. 7. Eliquis 2.5 mg p.o. b.i.d. 8. Vitamin C 500 mg p.o. b.i.d. 9. Calcium carbonate 1000 mg p.o. q.4 hours p.r.n. 10. Omnicef 300 mg p.o. b.i.d. stop on 01/31/2020. 11. Ferrous sulfate 325 mg p.o. b.i.d. 12. Guaifenesin 200 mg p.o. q.4 hours p.r.n. 13. Megace 40 mg p.o. daily. 14. Restoril 15 mg p.o. at bedtime p.r.n. FOLLOWUP: The patient may follow up with Dr. Cardona after discharge. The patient will follow up with Dr. Uriel Bee with [facility] Cardiology Service. The patient will follow up with Dr. Guerrero with Electrophysiology Service. CONDITION ON DISCHARGE: Fair. ACTIVITY: Ad monique rolling walker with standby/contact guard assistance. DIET: Regular. CODE STATUS: Do not attempt resuscitation. DISPOSITION: Discharged to [facility] 01/26/2020. TIME SPENT: Total time preparing and coordinating discharge is 37 minutes. Job ID: [id number]
--- NOTE | 2020-01-26 11:51 | PDOC.EP ---
- Subjective Date: 01/26/20 Time: 11:49 Interval History: follow up for atrial arrhythmias - Review of Systems Constitutional: reports: weakness. denies: chills, fever, malaise, sweats Respiratory: denies: cough, dry, hemoptysis Cardiology: denies: chest pain, edema, heart racing, light headedness Gastrointestinal: denies: abdominal pain - Objective Allergies/Adverse Reactions: Allergies Allergy/AdvReac Type Severity Reaction Status Date / Time No Known Allergies Allergy Verified 01/17/20 19:22 Current Medications Acetaminophen (Tylenol) 650 mg [place] Q4H PRN PRN Reason: Headache/Fever/Mild Pain (1-3) Acetaminophen (Tylenol) 650 mg PO Q4H PRN PRN Reason: Headache/Fever/Mild Pain (1-3) Last Admin: 01/18/20 02:17 Dose: 650 mg Amiodarone HCl (Cordarone) 200 mg PO DAILY [facility] Apixaban (Eliquis) 2.5 mg PO BID [facility] Last Admin: 01/26/20 08:36 Dose: 2.5 mg Aspirin (Ecotrin) 81 mg PO DAILY [facility] Last Admin: 01/26/20 08:36 Dose: 81 mg Calcium Carbonate (Tums) 1,000 mg PO Q4H PRN PRN Reason: Heartburn or Indigestion Cefdinir (Omnicef) 300 mg PO BID [facility] Last Admin: 01/26/20 08:36 Dose: 300 mg Ferrous Sulfate (Feosol) 325 mg PO BID[facility] Last Admin: 01/26/20 08:35 Dose: 325 mg Guaifenesin (Organ-I Nr) 200 mg PO Q4H PRN PRN Reason: Cough Guaifenesin (Robitussin Sf) 200 mg PO Q4H PRN PRN Reason: Cough Ipratropium [place] (Atrovent) 2.5 ml NEB [id number] [facility] Last Admin: 01/26/20 07:10 Dose: 2.5 ml Loperamide HCl (Imodium) 2 mg PO Q6H PRN PRN Reason: Diarrhea/Loose Stools Lorazepam (Ativan) 1 mg PO Q8H PRN PRN Reason: Anxiety/Agitation Last Admin: 01/23/20 16:52 Dose: 1 mg Megestrol Acetate (Megace) 40 mg PO DAILY [facility] Last Admin: 01/26/20 08:36 Dose: 40 mg Senna/Docusate Sodium (Senokot S) 2 tab PO BID PRN PRN Reason: Constipation Temazepam (Restoril) 15 mg PO HSPRN PRN PRN Reason: Insomnia Last Admin: 01/25/20 20:21 Dose: 15 mg Vital Signs & Weight: Vital Signs Temp Pulse Resp BP BP Pulse Ox 01/26/20 08:30 98 01/26/20 07:28 98.0 F 76 16 168/77 H 98 01/26/20 07:10 73 14 100 01/26/20 03:37 98.5 F 72 18 132/60 99 01/26/20 00:15 12 Admit Weight 130 lb 4.691 oz Weight 132 lb 0.91 oz I/O: I/O 01/25/20 01/26/20 01/27/20 06:59 06:59 06:59 Intake Total 540 1260 Output Total 1000 800 Balance -460 460 - Quality Measures Condition: Atrial Fibrillation/Flutter (hx or current) CV meds: Eliquis: Yes - Physical Exam General: alert & oriented x3, appears well, no apparent distress, speech clear, affect appropriate HEENT: mucus membranes moist, normocephaly Neck: supple neck, midline trachea, no JVD/HJR, no masses, no bruit, no lymphadenopathy, no thromegaly Cardiology: regular rate and rhythm, no murmur, regular rate, regular rhythm, PMI nondisplaced Lungs: clear to auscultation, normal breath sounds, normal exam, no wheeze, rales, rhonchi, no wheezes, no rales, no rhonchi Neurology: cranial nerve 2-12 intact, grossly intact, sensory function intact - Labs Result Diagrams: 01/25/20 04:35 01/24/20 12:44 - EKG Interpretation EKG Method: Telemetry EKG shows: Sinus rhythm - Assessment/Plan Assessment/Plan: 1. Newly found atrial arrhythmias. a. Atrial fibrillation with rapid rate noted in the setting of pneumonia and sepsis. b. Amiodarone initiated and the patient converted to typical-appearing atrial flutter. 2. History of lymphoma. 3. Current admission with community-acquired pneumonia/sepsis with negative blood cultures and negative A and B influenza. 4. History of peripheral vascular disease. 5. History of hyperlipidemia. 6. Anemia - no acute bleeding seen Starting low dose eliquis for low weight. Given her frail medical status and poor condition overall, she is a poor candidate for PVAI. 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 Ideally this would be performed with OAC x30 days post ablation but it carries a significantly lower risk of stroke, being a right atrial ablation. I discussed this with Dr Ignacio and the patients daughter as well. We agreed to continue conservative measures with continued amidarone and low dose eliquis, possibly considering CTI later. Amiodarone loading continues and she is largely maintaining SR but began having the occasional pause with 200mg TID dosing. Longest was 3.2 second, asymptomatic. Amiodarone reduced to 200mg daily. OK for DC by EP
[2020-01-27] MEDS ORDERED: Amiodarone 200 MG TAB PO SCH (09:00)
== END 2020-01-26 11:54 | DRG 871 ==
LOC: ERS 11:13 → IMCU/EMU 13:45 → 2NO 01-22 14:18
PROVIDERS: ADMIT Internal Medicine; ATTEND Internal Medicine
PROC: 02H633Z Insertion of Infusion Device into Right Atrium, Percutaneous Approach (ICD-10-PCS; principal; 2020-01-17)
PROC: 30233N1 Transfusion of Nonautologous Red Blood Cells into Peripheral Vein, Percutaneous Approach (ICD-10-PCS; 2020-01-17)
PROC: 0DH63UZ Insertion of Feeding Device into Stomach, Percutaneous Approach (ICD-10-PCS; 2020-01-18)
DX: A41.9 Sepsis, unspecified organism (principal); J15.9 Unspecified bacterial pneumonia; Z66 Do not resuscitate; Z51.5 Encounter for palliative care; D62 Acute posthemorrhagic anemia; C84.48 Peripheral T-cell lymphoma, not elsewhere classified, lymph nodes of multiple sites; D61.818 Other pancytopenia; I48.92 Unspecified atrial flutter; E78.5 Hyperlipidemia, unspecified; I10 Essential (primary) hypertension; I73.9 Peripheral vascular disease, unspecified; I48.91 Unspecified atrial fibrillation; Y95 Nosocomial condition; R62.7 Adult failure to thrive; R09.02 Hypoxemia; R63.0 Anorexia; I45.10 Unspecified right bundle-branch block; D64.81 Anemia due to antineoplastic chemotherapy; T45.1X5A Adverse effect of antineoplastic and immunosuppressive drugs, initial encounter; Z87.891 Personal history of nicotine dependence; Z79.82 Long term (current) use of aspirin; Z79.899 Other long term (current) drug therapy; Z87.440 Personal history of urinary (tract) infections; Z68.24 Body mass index [BMI] 24.0-24.9, adult
CPT/HCPCS: 36415; 36416; 36430; 51701; 71045; 71275; 74018; 80053; 80202; 81003; 82274; 82565; 82805; 83605; 83690; 83735; 83880; 84443; 84484; 85007; 85014; 85018; 85025; 85027; 85049; 85379; 85610; 86850; 86900; 86901; 87040; 87804; 93005; 93010; 93306; 94640; 96361; 96365; 96367; 96375; A4353; J0692; J1160; J1642; J1650; J1940; J1956; J3370; J3480; J3490; J7050; J7512; J7620; P9016; P9047; Q9967; S0179

== ENCOUNTER 2020-02-15 14:47 | Emergency (ER) | payer MEDICARE ==
[2020-02-15 15:21] LABS: Mean Corpuscular HGB CONC 34.4 g/dL (32.0-36.0); Mean Corpuscular Hemoglobin 32.2 pg (27.0-31.0); Mean Corpuscular Volume 93.7 fL (78.0-98.0); Mean Platelet Volume 9.1 fL (7.4-10.4); Platelet Count 118 thou/uL (130-400); Red Blood Cell (RBC) Count 2.79 mill/uL (4.20-5.40)
[2020-02-15 15:39] LABS: Anisocytosis MODERATE=16-30 cells (100X) (0-5/hpf); Band 10 % (5-11); Differential Comment Immature Cell(s); Eosinophils 3 % (0-10); Hypochromia SLIGHT = 6-15 cells (100X) (0-5/hpf); Lymphocytes 65 % (21-51); MDiff Complete? YES; Metamyelocyte 1 % (0-0); Monocytes 10 % (0-10); Neutrophil 5 % (42-75); Nucleated RBC 9 % (0); Platelet Morphology Comment Appears Decreased; Polychromasia MARKED = >4 cells (100X) (0-2/hpf); Reactive Lymphocytes 4 % (0-10); Toxic Granulation SLIGHT; White Blood Cell (WBC) Count 2.2 thou/uL (4.8-10.8)
[2020-02-15] MEDS ORDERED: Morphine 4 MG/ML VIAL ONE (15:43)
[2020-02-15 15:44] LABS: ALT (SGPT) 97 U/L (8-55); AST (SGOT) 29 U/L (5-34); Albumin 3.4 g/dL (3.4-4.8); Alkaline Phosphatase 188 U/L (40-110); Anion Gap 15 mmol/L (10-20); BUN (Urea Nitrogen) 27 mg/dL (9.8-20.1); Bilirubin, Total 1.4 mg/dL (0.2-1.2); Calc. Creatinine Clearance 0 mL/min (70-130); Calcium 8.6 mg/dL (7.8-10.44); Carbon Dioxide 27 mmol/L (23-31); Chloride 91 mmol/L (98-107); Estimated GFR-MDRD 70; Globulin 5.7 g/dL (2.4-3.5); Glucose 107 mg/dL (83-110); Potassium 4.5 mmol/L (3.5-5.1); Protein, Total 9.1 g/dL (6.0-8.3); Sodium 128 mmol/L (136-145)
[2020-02-15] MEDS ORDERED: Ondansetron PF 4 MG/2 ML Vial ONE (15:44)
[2020-02-15 16:45] LABS: Bilirubin Negative (Negative); Blood, Urine Negative (Negative); Clarity Clear (Clear); Glucose, Urine (Dipstick) Normal (Negative); Leukocyte Negative Leu/uL (Negative); Nitrite Negative (Negative); Protein, Urine (Dipstick) 10 mg/dL (Neg-Trace); Urobilinogen Normal mg/dL (Less than 2)
== END 2020-02-15 17:13 | disposition home or self-care (01) ==
LOC: ERS 14:47
DX: R33.9 Retention of urine, unspecified (principal); R10.30 Lower abdominal pain, unspecified; D64.9 Anemia, unspecified; E78.5 Hyperlipidemia, unspecified; I10 Essential (primary) hypertension; C85.90 Non-Hodgkin lymphoma, unspecified, unspecified site; Z87.891 Personal history of nicotine dependence; Z79.899 Other long term (current) drug therapy; Z79.82 Long term (current) use of aspirin
CPT/HCPCS: 51702; 51798; 81003; 83690; 94760; 96361; 96374; 96375; J2270; J2405